=== PATIENT | male | born 1955 | race Caucasian/White ===

== ENCOUNTER 2023-02-23 18:16 | Emergency (ER) | payer MEDICARE, SELFPAY ==
--- NOTE | ~2023-02-23 | XR_ITS ---
EXAM: XR femur LT min 2V, XR tibia fibula LT 2V DATE: 02/23/2023 19:18 HISTORY: PAIN AFTER DOGS TRIPPED PATIENT . COMPARISON: None available. FINDINGS: Decreased mineralization. Mild degenerative change in the left hip. Nondisplaced fracture through the intertrochanteric region. No other fracture. No dislocation. Soft tissue anchor in the le ft knee. Mild tricompartmental left knee arthritis. Left knee chondrocalcinosis. Moderate degenerativ e change at the tibiotalar joint. IMPRESSION: Nondisplaced left intertrochanteric fracture. Reviewed, dictated and finalized at location K. IMPRESSION: Nondisplaced left intertrochanteric fracture.
[2023-02-23 18:35] VITALS: BP 187/103; PULSE 115; RESP 18; TEMP 37.2; O2SAT 97
--- NOTE | 2023-02-23 18:48 | ED.LOWEXIN ---
HPI - Extremity Injury (Lower) General Chief Complaint: Extremity Injury, Lower Stated Complaint: left leg injury Time Seen by Provider: 02/23/23 18:40 Source: patient and RN notes reviewed Mode of arrival: ambulatory Limitations: no limitations History of Present Illness HPI Narrative: Patient presents today complaining of left leg pain. States he fell sideways onto concrete 2 weeks ago injuring his hip and lower leg. States he had been improving but twisted a few days ago, causing increased pain at that time. He is having pain primarily in the hip and anterior lower leg area. Denies numbness or tingling in the leg or foot. Currently rates his pain 4/10 and has been taking ibuprofen with some relief. He has been ambulating with a walker since the injury due to pain. Related Data Home Medications Medication Instructions Recorded Confirmed albuterol 02/23/23 Allergies Allergy/AdvReac Type Severity Reaction Status Date / Time No Known Allergies Allergy Verified 02/23/23 18:36 Review of Systems Review of Systems: CONSTITUTIONAL: Denies body aches, fever, chills, or sweats. EYES: Denies visual changes, redness, or discharge. ENT: Denies rhinorrhea, congestion, sore throat, or otalgia. CARDIOVASCULAR: Denies chest pain, palpitations, or edema. RESPIRATORY: Denies cough or dyspnea. GASTROINTESTINAL: Denies abdominal pain, nausea, vomiting, or diarrhea. GENITOURINARY: Denies dysuria or hematuria. SKIN: Denies rash, itching, or wounds. MUSCULOSKELETAL: Denies back pain, or myalgia.+ left hip and tib-fib pain NEUROLOGIC: Denies headache, numbness, tingling, or weakness. PSYCH: Denies depression or anxiety. [facility] Past Medical History Medical History (Updated 02/23/23 @ 19:44 by Sasha Cohn, [facility], ) COPD (chronic obstructive pulmonary disease) Hypertension Comments At time of signature, I have reviewed and agree with nursing past medical, surgical, social and family history unless otherwise noted. Please see nursing chart for further information. There is no relevant family history pertinent to the presenting complaint Exam Narrative: GENERAL: Well-appearing, well-nourished, and in no acute distress. HEAD: Normocephalic, atraumatic. EYES: EOMI. No redness or drainage. Conjunctivae normal. ENT: Mucous membranes pink and moist. NECK: Normal AROM. . CHEST: No respiratory distress. MUSCULOSKELETAL: No bony tenderness of the lumbar spine. No tenderness to the left SI joint. Tenderness to the left lateral hip as well as the proximal anterior tib-fib. No ecchymosis to the entire leg. No edema. No erythema. Distal sensation intact. Capillary refill normal. Range of motion of the hip is painful. SKIN: Warm, dry, no rash. Capillary refill normal. Normal skin turgor. NEURO: No focal deficits. Alert and oriented x3. Gait steady with walker. PSYCH: Normal affect. No signs of depression or anxiety. Course Course Level of Care: Express Care Visit Vital Signs Vital signs: Vital Signs Temperature 99 F 02/23/23 18:35 Pulse Rate 115 H 02/23/23 18:35 Respiratory Rate 18 02/23/23 18:35 Blood Pressure 187/103 H 02/23/23 18:35 Pulse Oximetry 97 02/23/23 18:35 Oxygen Delivery Room Air 02/23/23 18:35 Temperature 99 F 02/23/23 18:35 Pulse Rate 115 H 02/23/23 18:35 Respiratory Rate 18 02/23/23 18:35 Blood Pressure 187/103 H 02/23/23 18:35 Pulse Oximetry 97 02/23/23 18:35 Oxygen Delivery Room Air 02/23/23 18:35 Reviewed. Transfer Transfered to: [place] Transportation: Other (Private vehicle) Transfer rationale: Hip fracture Accepting physician: Armani MDM - Extremity Injury (Lower) Differential Diagnosis Differential diagnosis: Likely other (Contusion, fracture) Imaging Data Radiologist's impression: ITS Impressions Femur X-Ray 02/23/23 19:26 IMPRESSION: Nondisplaced left intertrochanteric fracture. Tibia/Fibula X-Ray 0
[2023-02-23 19:38] VITALS: BP 163/103; PULSE 88
--- NOTE | 2023-02-23 19:46 | PC.NURSE ---
PT denies h/a, CP, SOB or vision changes. ADvised to watch BP and f/u with PCP
== END 2023-02-23 19:42 | disposition short-term general hospital (02) ==
PROVIDERS: Emergency Provider Nurse Practitioner
DX: S72.145A Nondisplaced intertrochanteric fracture of left femur, initial encounter for closed fracture (principal); W19.XXXA Unspecified fall, initial encounter; J44.9 Chronic obstructive pulmonary disease, unspecified; I10 Essential (primary) hypertension
CPT/HCPCS: 73552; 73590; 99214; G0463

== ENCOUNTER 2023-02-23 20:10 | Observation (INO) | payer MEDICARE, SELFPAY ==
--- NOTE | ~2023-02-23 | US_ITS ---
EXAMINATION: US venous doppler [facility] DATE: 02/24/2023 12:21 INDICATION: Left lower limb swelling TECHNIQUE: Grayscale ultrasound images without and with compression and Doppler ultrasound images of the left lower extremity veins were obtained. COMPARISON: None. FINDINGS: The visualized portions of left common femoral vein, profunda (deep) femoral vein, femoral vein, popl iteal vein, peroneal veins, posterior tibial veins, gastrocnemius vein and greater saphenous vein out flow are patent. IMPRESSION: 1. No deep venous thrombosis in the left lower limb. Reviewed, dictated and finalized at location A.
--- NOTE | ~2023-02-23 | XR_ITS ---
EXAMINATION: XR femur LT min 2V INDICATION: Nondisplaced left intertrochanteric fracture. TECHNIQUE: Two views of the left femur are obtained on four radiographs. COMPARISON: None available FINDINGS: There is an intertrochanteric fracture of the left femoral neck. The femoral head is well-s eated in the acetabulum. No additional fracture is identified. Surgical changes are noted in the knee . There is calcified atherosclerosis. There is mild osteoarthritis of the knee. IMPRESSION: 1. Intertrochanteric fracture of the left femoral neck. Reviewed, dictated and finalized at location A.
--- NOTE | ~2023-02-23 | XR_ITS ---
EXAMINATION: XR hip LT 2V w AP pelvis INDICATION: Nondisplaced left intertrochanteric fracture TECHNIQUE: AP view of the pelvis and two views of the left hip are obtained. COMPARISON: None available FINDINGS: There is an intertrochanteric fracture of the left femoral neck. The femoral head is well-s eated in the acetabulum. No additional fracture is identified. Calcified atherosclerosis is noted. IMPRESSION: 1. Intertrochanteric left femoral neck fracture. Reviewed, dictated and finalized at location A.
--- NOTE | ~2023-02-23 | XR_ITS ---
EXAMINATION: XR chest 1V portable Exam Date/Time: 02/23/2023 22:00 CDT HISTORY: wheezes Comparison: None. RESULT: Lines, tubes, and devices: None. Lungs and pleura: Senescent/emphysematous change. 2.1 cm spiculated opacity in the right upper lung, with adjacent scar and hilar retraction. Cardiomediastinal silhouette: Mild aortic unfolding and arch calcification. Dilated central pulmonar y arteries as can be seen with pulmonary arterial hypertension. Other: No acute osseous or upper abdominal finding. IMPRESSION: Suspicious right upper lobe nodule. Consider low-dose noncontrast CT of the chest for further charact erization. Reviewed, dictated and finalized at location K. IMPRESSION: Suspicious right upper lobe nodule. Consider low-dose noncontrast CT of the dino st for further characterization.
--- NOTE | ~2023-02-23 | CT_ITS ---
EXAMINATION: CT diagnostic chest wo con DATE: 02/24/2023 10:17 INDICATION: Lung nodule TECHNIQUE: Computed tomography (CT) of the chest was performed without intravenous contrast. The dose -length product (DLP) was 197.75 mGy-cm. Automated exposure control and iterative reconstruction tech nique were employed. COMPARISON: None FINDINGS: There is a 13 mm x 10 mm nodule of the right upper lobe with peripheral airspace opacities extending to the pleural surface. There is mild emphysema. There are patchy airspace opacities of the left lower lobe. There is a 4 mm nodule of the left lower lobe. No pleural effusion or pneumothorax. No pathologically enlarged thoracic lymph nodes are identified. The heart size is normal. Calcified coronary artery atherosclerosis is noted. There is an age-indeterminate burst fracture T4 with a frac ture plane extending to the right pedicle. There is a compression fracture of T6. The T12 and L1 vert ebral bodies are fused. There is central loss of vertebral body height at L1. IMPRESSION: 1. Right upper lobe nodule which could reflect pneumonia or malignancy. Additional areas of airspace opacity suggest malignancy however, recommend three-month follow-up CT, PET/CT, or tissue sampling. 2. Age-indeterminate T4 burst fracture with fracture plane extending into the right pedicle. 3. Age indeterminate T6 compression fracture. Reviewed, dictated and finalized at location B. IMPRESSION: 1. Right upper lobe nodule which could reflect pneumonia or malignancy. Additio nal areas of airspace opacity suggest malignancy however, recommend three-month follow-up CT, PET/CT, or tissue sampling. 2. Age-indeterminate T4 burst fracture with fracture plane extending into the r ight pedicle. 3. Age indeterminate T6 compression fracture.
[2023-02-23 20:20] VITALS: BP 169/103; PULSE 88; RESP 16; TEMP 36.3; O2SAT 99
[2023-02-23] MEDS: HYDROmorphone HCL INJ (*CRX) 1 MG/ML SYR 0.5 MG IV PUSH (21:01)
[2023-02-23] MEDS: ONDANSETRON INJ 4 MG/2 ML VIAL IV PUSH (21:03)
--- NOTE | 2023-02-23 21:04 | ED.GENADULT ---
HPI - General Adult General Chief complaint: Extremity Injury, Lower <Preston Bhatt PA-C - Last Filed: 02/23/23 22:57> Stated complaint: left hip fracture <Preston Bhatt PA-C - Last Filed: 02/23/23 22:57> Time Seen by Provider: 02/23/23 20:31 <Preston Bhatt PA-C - Last Filed: 02/23/23 22:57> Source: patient <Preston Bhatt PA-C - Last Filed: 02/23/23 22:57> Mode of arrival: ambulatory <Preston Bhatt PA-C - Last Filed: 02/23/23 22:57> Limitations: no limitations <Preston Bhatt PA-C - Last Filed: 02/23/23 22:57> History of Present Illness HPI narrative: This is a 67-year-old male who presents to the ED with chief complaint of left hip pain onset 2 weeks ago. Patient is here after being referred from the urgent care for a left hip fracture diagnosed on the x-rays today. Patient states that 1-2 weeks ago he was carrying dogs out to a kennel in the backyard when he tripped and fell onto the left side. Reports that he has pain in the left hip but nowhere else. States that he has been able to ambulate in his home with the walker and nonweightbearing over the past several days. Today he tried to bear some weight and had significant pain. Denies any further site of pain or injury. <Preston Bhatt PA-C - Last Filed: 02/23/23 22:57> Related Data Home medications: Home Medications Medication Instructions Recorded Confirmed albuterol 02/23/23 <Preston Bhatt PA-C - Last Filed: 02/23/23 22:57> Allergies/adverse reactions: Allergies Allergy/AdvReac Type Severity Reaction Status Date / Time No Known Allergies Allergy Verified 02/23/23 18:36 <Preston Bhatt PA-C - Last Filed: 02/23/23 22:57> [facility] Past Medical History Medical History: Medical History (Updated 02/23/23 @ 22:10 by Preston Bhatt PA-C) COPD (chronic obstructive pulmonary disease) Hypertension <Preston Bhatt PA-C - Last Filed: 02/23/23 22:57> Exam Narrative: GENERAL: Well-appearing, well-nourished, and in no acute distress. HEAD: Normocephalic, atraumatic. EYES: PERRLA and EOMI. ENT: Nares clear, no rhinorrhea or epistaxis. Mucous membranes moist. Oropharynx without tonsillar hypertrophy exudate or other lesions. NECK: Supple. No adenopathy or masses. CHEST: No respiratory distress. Sats 99% on room air. Diffuse wheezes throughout the lungs. No rales or rhonchi. HEART: Regular rate and rhythm. No murmur heard. Normal peripheral pulses. ABDOMEN: Soft, nontender, nondistended, normal active bowel sounds. MSK: RLE: Normal range of motion. No edema. LLE: Guarding left hip. Significant pain with any range of motion of the hip. No tenderness throughout the knee. Musculoskeletal exam is otherwise intact. Neurovascularly intact distally. Bilateral feet with diffuse plaques. SKIN: Warm, dry, no rash. NEURO: Alert and oriented x3. No focal deficits. PSYCH: Normal mood and affect. <Preston Bhatt PA-C - Last Filed: 02/23/23 22:57> Course Course Emergency Course: Consult Dr. Sanz (orthopedics): Recommends admitting the patient to the hospital, he will see him in the morning. <Preston Bhatt PA-C - Last Filed: 02/23/23 22:57> [employer]NAGER/PA Physician Supervision For this patient encounter, I reviewed the [employer] MANAGER or PA documentation, treatment plan, and I was responsible for the medical decision making; and I had [id number] time with this patient. <Brian Lomeli MD - Last Filed: 02/23/23 23:10> Vital Signs Vital signs: Vital Signs Temperature 97.4 F L 02/23/23 20:20 Pulse Rate 88 02/23/23 20:20 Respiratory Rate 16 02/23/23 20:20 Blood Pressure 169/103 H 02/23/23 20:20 Pulse Oximetry 99 02/23/23 20:20 Oxygen Delivery Room Air 02/23/23 20:20 Temperature 97.4 F L 02/23/23 20:20 Pulse Rate 80 02/23/23 22:20 Respiratory Rate 18 02/23/23 22:20 Blood Pressure 151/91 H 02/23/23 22:20 Pulse Oximetry 98 02/23/23 22:20 Oxygen Delivery Room Air
[2023-02-23 21:05] LABS: Basophils Absolute Auto 0.1 K/mm3 (0.0-0.1); Basophils Percent Auto 0.9 % (0.2-1.2); Eosinophils Absolute Auto 0.6 K/mm3 (0-0.3); Eosinophils Percent Auto 6.6 % (0-4.4); Hematocrit 37.4 % (42.0-52.0); Hemoglobin 12.4 g/dL (14.0-18.0); Immature Granulocyte Absolute 0.03 K/mm3 (0.00-0.031); Immature Granulocyte Percent A 0.3 % (0-0.5); Lymphocytes Absolute Auto 1.49 K/mm3 (0.9-3.2); Lymphocytes Percent Auto 16.3 % (18.3-44.2); Mean Corpuscular HGB Conc 33.2 g/dl (32-36); Mean Corpuscular Hemoglobin 30.7 pg (26-34); Mean Corpuscular Volume 92.6 fl (80-100); Mean Platelet Volume 9.8 fl (7.4-10.4); Monocytes Absolute Auto 0.7 K/mm3 (0.1-0.6); Monocytes Percent Auto 7.2 % (2.6-8.5); Neutrophils Absolute Auto 6.3 K/mm3 (1.3-6.7); Neutrophils Percent Auto 68.7 % (45.5-73.1); Platelet Count Result 308 k/mm3 (150-375); Red Blood Count 4.04 M/mm3 (4.6-6.20); Red Cell Distribution Width 12.9 % (11.5-14.5); White Blood Count 9.1 K/mm3 (4.5-10.0)
[2023-02-23 21:15] LABS: Alanine Aminotransferase 14 U/L (6-50); Albumin Level 4.2 g/dL (3.5-5.1); Alkaline Phosphatase 81 U/L (38-126); Anion Gap 7 mmol/L (8-16); Aspartate Amino Transferase 24 U/L (17-59); Bilirubin,Total 0.4 mg/dL (0.2-1.3); Blood Urea Nitrogen 16 mg/dL (9-20); Calcium 9.8 mg/dL (8.4-10.2); Carbon Dioxide 29 mmol/L (22-30); Chloride 104 mmol/L (98-107); Estimated CRCL calculation 80 ml/min; Estimated Glomerular Filt Rate > 60; Glucose 95 mg/dL (65-110); Potassium 3.2 mmol/L (3.4-5.0); Sodium 140 mmol/L (137-145)
[2023-02-23 21:16] LABS: Prothrombin Time 13.2 Seconds (11.1-14.7)
[2023-02-23 21:17] LABS: Partial Thromboplastin Time 32.8 SECONDS (22.3-36.8)
[2023-02-23] MEDS: ALBUTEROL SULFATE NEB 2.5 MG/3 ML INH INHALATION (21:21)
[2023-02-23] MEDS: IPRATROPIUM BR 0.02% INH SOLN 0.5 MG/2.5 ML VIAL INHALATION (21:22)
[2023-02-23 21:29] VITALS: PULSE 79; RESP 18
[2023-02-23 21:35] VITALS: BP 166/105; PULSE 75; RESP 18; O2SAT 100
[2023-02-23 21:41] VITALS: PULSE 84; RESP 18
--- NOTE | 2023-02-23 22:04 | PM.IMHP ---
H&P: HPI History of Present Illness Date/Time: 02/23/23 22:04 Chief Complaint: Fall Narrative: This is a 67-year-old male with past medical history significant for COPD/emphysema, tobacco dependence, patient smokes half a pack a day. Patient presents to the emergency room after having a fall about a week ago somehow has managed to walk with the aid of a walker however on the day patient presents to the emergency room he was having pain upon weight-bearing and unable to ambulate. Preliminary workup was significant for hip x-ray was reported as: EXAM:? XR femur LT min 2V, XR tibia fibula LT 2V DATE: 02/23/2023 19:18 HISTORY: PAIN AFTER DOGS TRIPPED PATIENT . COMPARISON:? None available. FINDINGS:? Decreased mineralization. Mild degenerative change in the left hip. Nondisplaced fracture through the intertrochanteric region. No other fracture. No dislocation. Soft tissue anchor in the left knee. Mild tricompartmental left knee arthritis. Left knee chondrocalcinosis. Moderate degenerative change at the tibiotalar joint. IMPRESSION: Nondisplaced left intertrochanteric fracture. EXAM:? XR femur LT min 2V, XR tibia fibula LT 2V DATE: 02/23/2023 19:18 HISTORY: PAIN AFTER DOGS TRIPPED PATIENT . COMPARISON:? None available. FINDINGS:? Decreased mineralization. Mild degenerative change in the left hip. Nondisplaced fracture through the intertrochanteric region. No other fracture. No dislocation. Soft tissue anchor in the left knee. Mild tricompartmental left knee arthritis. Left knee chondrocalcinosis. Moderate degenerative change at the tibiotalar joint. IMPRESSION: Nondisplaced left intertrochanteric fracture. EXAMINATION:? XR chest 1V portable Exam Date/Time:? 02/23/2023 22:00 CDT HISTORY: wheezes ? Comparison:? None. RESULT: Lines, tubes, and devices:? None. Lungs and pleura:? Senescent/emphysematous change. 2.1 cm spiculated opacity in the right upper lung, with adjacent scar and hilar retraction. Cardiomediastinal silhouette:? Mild aortic unfolding and arch calcification. Dilated central pulmonary arteries as can be seen with pulmonary arterial hypertension. Other:? No acute osseous or upper abdominal finding. ? IMPRESSION: Suspicious right upper lobe nodule. Consider low-dose noncontrast CT of the chest for further characterization. Review of Systems Review of Systems: fall, unable to bear weight. Constitutional: Constitutional: Denies chills, Denies fatigue, Denies fever(s), Denies frequent falls, Denies malaise, Denies night sweats, Denies poor appetite, Denies weakness and Denies weight loss Eyes: Eyes: Denies change in vision ENT: Denies dysphagia, Denies vertigo, Denies dizziness and Denies odynophagia Cardiovascular: Cardiovascular: Denies chest pain, Denies syncope, Denies leg edema, Denies radiating jaw, neck or arm pain and Denies palpitations Respiratory: Respiratory: Reports cough, Reports dyspnea and Reports wheezing Gastrointestinal: Gastrointestinal: Denies abdominal pain, Denies dyspepsia, Denies heartburn, Denies diarrhea, Denies nausea and Denies vomiting Genitourinary: Genitourinary: Denies dysuria Musculoskeletal: Musculoskeletal: Reports arthralgias (Left hip) and Reports limited range of motion Integumentary/Breasts: Skin/Breast: Denies rash Neurologic: Denies focal weakness and Denies Sensory deficit (Neuro) Psychiatric: Psychiatric: Reports no additional psychiatric complaints and Reports as per HPI Endocrine: Endocrine: Denies cold intolerance, Denies flushing, Denies heat intolerance, Denies polyphagia, Denies polydipsia and Denies palpitations Hematologic/Lymphatic: Hematologic/Lymphatic: Reports no additional hematologic/lymphatic complaints and Reports as per HPI Allergic/Immunologic: Allergic/Immunologic: Reports no additional allergic/immunologic complaints and Reports as per HPI [facility] Past Medical History Medical History (Updated 02/23/23 @ 22:10 by Preston
--- NOTE | 2023-02-23 22:05 | ECG_ITS ---
Measurements Intervals [place] Rate: 75 P: 66 NV: 169 QRS: 43 QRSD: 87 T: 60 QT: 393 QTc: 441 Interpretive Statements SINUS RHYTHM WITH OCCASIONAL VENTRICULAR PREMATURE COMPLEXES ABNORMAL ECG NO PREVIOUS ECG AVAILABLE FOR COMPARISON Electronically Signed On 02-24-2023 17:04:49 CDT by Alexander Holguin M.D.
[2023-02-23 22:20] VITALS: BP 151/91; PULSE 80; RESP 18; O2SAT 98
[2023-02-23 22:32] LABS: Appearance Urine Clear (Clear); Bacteria Urine None Seen /hpf; Bilirubin Urine Negative (Negative); Blood Urine Negative (Negative); Color Urine Yellow (Yellow); Glucose Urine UA Negative (Negative); Ketones Urine Negative (Negative); Leukocyte Esterase Ur Negative LEU/UL (Negative); Nitrate Urine Negative (Negative); Non Pathogenic Casts 0-2; Protein Urine 1+ mg/dL (Negative); RBC Urine 0-2 /hpf (0-2); Specific Grav Ur 1.024 (1.001-1.035); Squamous Epithelial Cell Urine None seen /hpf (Few); Urobilinogen Urine 0.2 mg/dL (<2.0); WBC Urine 0-5 /hpf
[2023-02-23 22:49] LABS: Add Urine Microscopic? YES
[2023-02-23 23:18] VITALS: BP 150/88; PULSE 82; RESP 20; TEMP 36.7; O2SAT 96; BMI 21.4
--- NOTE | 2023-02-23 23:53 | PC.NURSE ---
This patient, Kyle Phillip, was admitted to Medical Room 340-01. Patient/family oriented to hospital policies and general routines including ID bracelet, bed and alarms, visiting hours, pain management, procedures, bathroom and other care routines, personal items, smoking policy, room service/diet, and visiting hours. Information on how to activate the Rapid Response Team has been discussed. Patient/Family are encouraged to report perceived risks to care and to ask questions if they do not understand what they are told or what they should do.
[2023-02-24] VITALS (13 sets, daily range): BP systolic 131–142; BP diastolic 82–89; PULSE 75–106; RESP 16–20; TEMP 36.1–37; O2SAT 93–97
[2023-02-24] MEDS: HYDROmorphone HCL INJ (*CRX) 1 MG/ML SYR 0.5 MG IV PUSH ×3 (00:21→16:38)
[2023-02-24] MEDS: ALBUTEROL SULFATE NEB 2.5 MG/3 ML INH INHALATION ×4 (01:50→20:00)
[2023-02-24] MEDS: IPRATROPIUM BR 0.02% INH SOLN 0.5 MG/2.5 ML VIAL INHALATION ×4 (01:50→20:00)
--- NOTE | 2023-02-24 08:43 | PM.CNOR ---
Assessment and Plan Assessment and plan (1) Intertrochanteric fracture of left femur: Qualifiers: Encounter type: initial encounter Fracture type: closed Fracture alignment: nondisplaced Qualified Code(s): S72.145A - Nondisplaced intertrochanteric fracture of left femur, initial encounter for closed fracture Code(s): S72.142A - Displaced intertrochanteric fracture of left femur, initial encounter for closed fracture Status: Acute Plan 67-year-old male with an impacted left intertrochanteric hip fracture. I discussed this with him. It is already 2-week-old and has impacted into a stable position. I think when he walked away from his walker yesterday he probably impacted a little bit more. We will get him mobilized with therapy and see how he does. I will re-x-ray this on Monday and then make a decision about possible surgical stabilization on Monday. He understands the plan at this point. Thank you for the consultation. History of Present Illness HPI Consult date: 02/24/23 Chief complaint: left hip fracture, COPD, HTN Narrative: This document created with [id number] technology and is subject to microelectronics assembler irregularities. 67-year-old male who has got an impacted left intertrochanteric hip fracture. I spoke with him this morning and he says it has been at least 14 days since he fell on his left side while handling dogs. He had been getting around at home using a walker. Yesterday he decided to try and walk way from the walker and increase in the pain in his left hip area. He was brought to the urgent care and then eventually the ER. X-ray evaluation shows an impacted left intertrochanteric hip fracture. No other injuries with this occurrence. History of some type of a left knee surgery which may have been an ACL repair. He is unclear on this. Review of Systems Constitutional: Constitutional: Reports no additional constitutional complaints, Denies excessive sweating and Denies fatigue Eyes: Eyes: Reports no additional eye complaints ENT: Reports system reviewed and no additional complaints, except as documented Cardiovascular: Cardiovascular: Denies chest pain at rest and Denies dyspnea Respiratory: Respiratory: Reports no additional respiratory complaints and Denies dyspnea Gastrointestinal: Gastrointestinal: Reports no additional gastrointestinal complaints Musculoskeletal: Musculoskeletal: Reports as per HPI Integumentary/Breasts: Skin/Breast: Reports system reviewed and no additional complaints, except as docu Neurologic: Reports as per HPI Endocrine: Endocrine: Denies excessive sweating and Denies fatigue Hematologic/Lymphatic: Hematologic/Lymphatic: Denies easy bleeding and Denies easy bruising PMFSH Past Medical History Medical History (Updated 02/24/23 @ 08:54 by Howie Sanz MD) COPD (chronic obstructive pulmonary disease) Hypertension Intertrochanteric fracture of left femur impacted fracture mid January 2023 Social History Social History Smoking packs per day: 0.5 Smoking cigarettes per day: 10.0 Years smoked: 50 Smoking pack-years: 25.00 Smoking status: Current every day smoker Tobacco type: cigarettes Alcohol intake: never Substance use: former Lack of Transportation: No Lack of Food: Never True Current Housing: I Have Housing Concerned About Future Housing: Decline to Answer Difficulty Paying Gas/Electric Bills: Decline to Answer Difficulty Paying for Meds: Decline to Answer Currently Unemployed: Decline to Answer Education: High School Diploma/GED Difficulty w/ Childcare or Family Care: No Spiritual care concerns: No Meds Home Medications and Allergies Home Medications Medication Instructions Recorded Confirmed Type No Home Medications 02/23/23 02/23/23 History Allergies Allergy/AdvReac Type Severity Reaction Status Date / Time No Known A
[2023-02-24] MEDS: POTASSIUM CHLORIDE 20 MEQ ER TABLET 40 MEQ PO (09:44)
[2023-02-24] MEDS: MICONAZOLE NITRATE 2% CREAM 30 GM TUBE 1 APPLIC TOPICAL ×2 (09:45→20:12)
[2023-02-24] MEDS: ACETAMINOPHEN 500 MG TABLET 1000 MG PO ×2 (11:39→21:46)
[2023-02-24] MEDS: NICOTINE (*PBKC) 14 MG PATCH 1 PATCH TRANSDERM (14:55)
--- NOTE | 2023-02-24 17:52 | WPDNEUROSGCN ---
Assessment and Plan Assessment and plan (1) Compression fracture: Status: Acute Assessment and Plan: PAtient iwth radiographic finding of thoracic compression fractures age indeterminate . BAsed upon discussion with the patient, the fractures are most likely > 10 years old. No indication for surgical or other management. No need for further evaluation during this hospitalization. Consult date: 02/24/23 HPI: Kyle Phillip is a 67 year old male who presents to the hospital with a left hip fracture. He sustained a fall which likely contribued to the fracture. As a part of his evaluation he underwent chest CT which shows multiple age indeterminate compression / burst fractures. On discussion with the patient he denies acute neck or back pain and he states that some ten years ago he fell from a ladder and sustained the fractures. He declined surgical treatment at the time. There is no acute exacerbation of pain save the left hip. There is no suggestion of a new acute compression fracture PMFSH Past Medical History Medical History (Updated 02/24/23 @ 17:55 by Sonia Jiménez MD) COPD (chronic obstructive pulmonary disease) Hypertension Intertrochanteric fracture of left femur impacted fracture mid January 2023 Social History Social History Smoking packs per day: 0.5 Smoking cigarettes per day: 10.0 Years smoked: 50 Smoking pack-years: 25.00 Smoking status: Current every day smoker Tobacco type: cigarettes Alcohol intake: never Substance use: former Lack of Transportation: No Lack of Food: Never True Current Housing: I Have Housing Concerned About Future Housing: Decline to Answer Difficulty Paying Gas/Electric Bills: Decline to Answer Difficulty Paying for Meds: Decline to Answer Currently Unemployed: Decline to Answer Education: High School Diploma/GED Difficulty w/ Childcare or Family Care: No Spiritual care concerns: No Meds Home Medications and Allergies Home Medications Medication Instructions Recorded Confirmed Type No Home Medications 02/23/23 02/23/23 History Allergies Allergy/AdvReac Type Severity Reaction Status Date / Time No Known Allergies Allergy Verified 02/23/23 18:36 Vital Signs Vital Signs - 24 hr 02/23/23 20:20 02/23/23 21:29 02/23/23 21:35 Temperature 97.4 F L Pulse Rate 88 79 75 Respiratory Rate 16 18 18 Blood Pressure 169/103 H 166/105 H Pulse Oximetry 99 100 Oxygen Delivery Room Air Fraction of Inspired Oxygen 02/23/23 21:41 02/23/23 22:20 02/23/23 23:18 Temperature 98.0 F Pulse Rate 84 80 82 Respiratory Rate 18 18 20 Blood Pressure 151/91 H 150/88 H Pulse Oximetry 98 96 Oxygen Delivery Fraction of Inspired Oxygen 02/23/23 23:49 02/24/23 01:50 02/24/23 02:00 Temperature Pulse Rate 77 80 Respiratory Rate 18 18 Blood Pressure Pulse Oximetry Oxygen Delivery Room Air Fraction of Inspired Oxygen 02/24/23 01:50 02/24/23 06:00 02/24/23 08:07 Temperature 97.0 F L Pulse Rate 77 79 75 Respiratory Rate 18 18 Blood Pressure 131/83 Pulse Oximetry 93 96 97 Oxygen Delivery Room Air Room Air Fraction of Inspired Oxygen 21 02/24/23 08:07 02/24/23 08:23 02/24/23 13:50 Temperature Pulse Rate 75 80 80 Respiratory Rate 18 18 18 Blood Pressure Pulse Oximetry Oxygen Delivery Fraction of Inspired Oxygen 02/24/23 14:04 02/24/23 14:00 Temperature 98.6 F Pulse Rate 81 81 Respiratory Rate 18 16 Blood Pressure 134/89 Pulse Oximetry 96 Oxygen Delivery Fraction of Inspired Oxygen Exam Narrative: Awake, alert oriented x 3 Speech CF PERLAEOMI FAce= TML MAEW with good strength save limitation of proximal LLE due to hip fx STation and gait thus deferred Results Labs 02/23/23 20:59 02/23/23 20:59 Labs: Short CBC 02/23/23 Range/Units 20:5
--- NOTE | 2023-02-24 18:02 | PM.IMPN ---
Progress Note: A&P Assessment and Plan (1) Closed fracture of trochanter of left femur: Code(s): S72.102A - Unspecified trochanteric fracture of left femur, initial encounter for closed fracture Status: Deleted Assessment and Plan: Admit to regular medical floor Pain management Bed rest Supportive care Ortho consult -Ortho wants to have patient mobile for the weekend with assistance of PT/OT and a walker. Then will obtain new XR imaging of left hip to determine if surgical intervention is required. I initially put in for PT/OT but there was an incidental finding of T4 norma and T6 compression fractures to his spine that are age indeterminate. I want neurosurgery to see him and make sure that he can ambulate safely. (2) Fall: Code(s): W19.XXXA - Unspecified fall, initial encounter Status: Acute Assessment and Plan: Fall precautions (3) COPD (chronic obstructive pulmonary disease): Code(s): J44.9 - Chronic obstructive pulmonary disease, unspecified Status: Acute Assessment and Plan: Breathing treatments q.6 p.r.n. (4) Athletes foot: Code(s): B35.3 - Tinea pedis Status: Acute Assessment and Plan: A started antifungal (5) Gait disturbance: Code(s): R26.9 - Unspecified abnormalities of gait and mobility Status: Acute Assessment and Plan: Patient uses a walker at is an aid Unable to bear weight Subjective Date/time seen: 02/24/23 18:02 Interval history: This is a 67-year-old male with past medical history significant for COPD/emphysema, tobacco dependence, patient smokes half a pack a day.? Patient presents to the emergency room after having a fall about a week ago somehow has managed to walk with the aid of a walker however on the day patient presents to the emergency room he was having pain upon weight-bearing and unable to ambulate.? 02/24: Patient is seen in bed reading and appears to be feeling well. He denies any complaints overnight. He explains that he came to the hospital for worsening left hip and leg pain after falling 4 weeks ago. He then fell another time when he walked away from his walker, he estimates that was a couple of weeks ago. Currently he is on bedrest and does not complain of pain when he is laying still. He does have some tenderness to palpation and swelling in the left leg. Ortho has been consulted and we appreciate recommendations. I spoke with the patient about an incidental lung nodule found on his chest x-ray. He says that he knows about it and was scheduled to follow up with a rn mds coordinator down in [place]. He just moved here a month ago to be closer to his daughter. Will obtain CT today to further investigate the lesions and can arrange for pulmonology follow up at discharge. He feels like his COPD is well controlled and denies SOB, chest pain, cough, or increased sputum. He does want a nicotine patch because he is a 1/2 ppd smoker. Review of Systems Review of Systems: All systems reviewed & are unremarkable except as noted in HPI and below Exam Narrative: General: well appearing, thin, appears stated age. Neuro: Alert and orientated x 4. PERRLA. Cranial nerves 2-12 intact without focal deficit. HEENT: normocephalic, atraumatic. Mucous membranes moist. Neck supple without JVD or lymphadenopathy. Missing teeth. Respiratory: clear to auscultation bilaterally. No rales/rhonic/wheezes. Cardiovascular: Regular rate and rhythm, normal S1-S2 upon auscultation. No murmurs, rubs, or clicks. PMI is nondisplaced. Abdomen: Soft, flat, non-distended and non-tender. Bowel sounds present to all four quadrants. Extremities: No cyanosis, clubbing. Slight non-pittig edema to left calf and thigh. Pulses are palpable 2/1. Active ROM to all four extremities. 4/5 strength in LLE. Skin: Warm, dry, and intact, without rash, erythema, or lesion. Fungal patching to BLE. Psych: pleasant, cooperative, normal speech, normal affect.
[2023-02-25] VITALS (12 sets, daily range): BP systolic 139–162; BP diastolic 86–88; PULSE 90–108; RESP 16–22; TEMP 36.4–36.7; O2SAT 94–100
[2023-02-25] MEDS: ALBUTEROL SULFATE NEB 2.5 MG/3 ML INH INHALATION ×4 (01:53→19:51)
[2023-02-25] MEDS: IPRATROPIUM BR 0.02% INH SOLN 0.5 MG/2.5 ML VIAL INHALATION ×4 (01:53→19:51)
[2023-02-25 05:21] LABS: Basophils Absolute Auto 0.1 K/mm3 (0.0-0.1); Basophils Percent Auto 0.9 % (0.2-1.2); Eosinophils Absolute Auto 0.5 K/mm3 (0-0.3); Eosinophils Percent Auto 5.1 % (0-4.4); Hematocrit 29.4 % (42.0-52.0); Hemoglobin 9.7 g/dL (14.0-18.0); Immature Granulocyte Absolute 0.02 K/mm3 (0.00-0.031); Immature Granulocyte Percent A 0.2 % (0-0.5); Lymphocytes Absolute Auto 1.13 K/mm3 (0.9-3.2); Lymphocytes Percent Auto 12.2 % (18.3-44.2); Mean Corpuscular Hemoglobin 30.5 pg (26-34); Mean Corpuscular Volume 92.5 fl (80-100); Mean Platelet Volume 9.9 fl (7.4-10.4); Monocytes Absolute Auto 0.8 K/mm3 (0.1-0.6); Monocytes Percent Auto 8.9 % (2.6-8.5); Neutrophils Absolute Auto 6.7 K/mm3 (1.3-6.7); Neutrophils Percent Auto 72.7 % (45.5-73.1); Platelet Count Result 227 k/mm3 (150-375); Red Blood Count 3.18 M/mm3 (4.6-6.20); Red Cell Distribution Width 13.1 % (11.5-14.5); White Blood Count 9.3 K/mm3 (4.5-10.0)
[2023-02-25 05:32] LABS: Anion Gap 4 mmol/L (8-16); Blood Urea Nitrogen 12 mg/dL (9-20); Calcium 8.6 mg/dL (8.4-10.2); Carbon Dioxide 29 mmol/L (22-30); Chloride 105 mmol/L (98-107); Estimated CRCL calculation 82 ml/min; Estimated Glomerular Filt Rate > 60; Glucose 99 mg/dL (65-110); Potassium 2.9 mmol/L (3.4-5.0); Sodium 138 mmol/L (137-145)
[2023-02-25] MEDS: POTASSIUM CHLORIDE 20 MEQ ER TABLET 80 MEQ PO (07:48)
[2023-02-25] MEDS: HYDROmorphone HCL INJ (*CRX) 1 MG/ML SYR 0.5 MG IV PUSH ×2 (07:48→20:53)
[2023-02-25] MEDS: NICOTINE (*PBKC) 14 MG PATCH 1 PATCH TRANSDERM (08:01)
[2023-02-25] MEDS: MICONAZOLE NITRATE 2% CREAM 30 GM TUBE 1 APPLIC TOPICAL ×2 (08:01→20:50)
[2023-02-25] MEDS: lisinopriL 5 MG TABLET PO (09:20)
--- NOTE | 2023-02-25 11:46 | PM.IMPN ---
Progress Note: A&P Assessment and Plan (1) Closed fracture of trochanter of left femur: Code(s): S72.102A - Unspecified trochanteric fracture of left femur, initial encounter for closed fracture Status: Deleted Assessment and Plan: Admit to regular medical floor Pain management Bed rest Supportive care Ortho consult Neurosurgery cleared for mobility. PT/OT ordered with WBAT and walker. XR right hip tomorrow morning. (2) Fall: Code(s): W19.XXXA - Unspecified fall, initial encounter Status: Acute Assessment and Plan: Fall precautions (3) COPD (chronic obstructive pulmonary disease): Code(s): J44.9 - Chronic obstructive pulmonary disease, unspecified Status: Acute Assessment and Plan: Breathing treatments q.6 p.r.n. (4) Athletes foot: Code(s): B35.3 - Tinea pedis Status: Acute Assessment and Plan: A started antifungal. - Scaling is much improved. Continue cream (5) Gait disturbance: Code(s): R26.9 - Unspecified abnormalities of gait and mobility Status: Acute Assessment and Plan: Patient uses a walker at is an aid Unable to bear weight without pain Subjective Date/time seen: 02/25/23 11:46 Interval history: This is a 67-year-old male with past medical history significant for COPD/emphysema, tobacco dependence, patient smokes half a pack a day.? Patient presents to the emergency room after having a fall about a week ago somehow has managed to walk with the aid of a walker however on the day patient presents to the emergency room he was having pain upon weight-bearing and unable to ambulate.? 02/24: Patient is seen in bed reading and appears to be feeling well. He denies any complaints overnight. He explains that he came to the hospital for worsening left hip and leg pain after falling 4 weeks ago. He then fell another time when he walked away from his walker, he estimates that was a couple of weeks ago. Currently he is on bedrest and does not complain of pain when he is laying still. He does have some tenderness to palpation and swelling in the left leg. Ortho has been consulted and we appreciate recommendations. I spoke with the patient about an incidental lung nodule found on his chest x-ray. He says that he knows about it and was scheduled to follow up with a automatic print developer down in [place]. He just moved here a month ago to be closer to his daughter. Will obtain CT today to further investigate the lesions and can arrange for pulmonology follow up at discharge. He feels like his COPD is well controlled and denies SOB, chest pain, cough, or increased sputum. He does want a nicotine patch because he is a 1/2 ppd smoker. 02/25: Mr Phillip is doing well today. He says he slept okay but did have some muscle spasms last night to his left leg. I told him I will place a prn order for flexeril should the spasms reoccur. Yesterday he was seen by neurosurgery for age indeterminate T4 burst fracture and T6 compression fracture noted on his CT chest. According to patient these are old and neurosurgery has cleared him for mobility. PT/OT ordered and will work with patient today. Plan to re-xray his left hip so Dr Sanz can make a decision about surgical intervention. He Denies dizziness, headache, chest pain, shortness of breath, in cough, nausea, vomiting, diarrhea. He has not had a bowel movement yet since being in the hospital but he feels he is going to have today. He also reports that the scaling on the bottoms of his feet are much improved with application of the antifungal cream. His Dopplers to the left lower extremity were negative for DVT. Swelling looks improved today. Review of Systems Review of Systems: All systems reviewed & are unremarkable except as noted in HPI and below Exam Narrative: General: well appearing, thin, appears stated age. Neuro: Alert and orientated x 4. PERRLA. Cranial nerves 2-12 intact without focal deficit. H
[2023-02-25] MEDS: ACETAMINOPHEN 500 MG TABLET 1000 MG PO (14:31)
[2023-02-25] MEDS: CYCLOBENZAPRINE HCL 10 MG TABLET PO ×2 (14:32→23:30)
[2023-02-26] VITALS (14 sets, daily range): BP systolic 140–155; BP diastolic 85–93; PULSE 87–114; RESP 18–22; TEMP 36.5–37.7; O2SAT 95–97
[2023-02-26] MEDS: IPRATROPIUM BR 0.02% INH SOLN 0.5 MG/2.5 ML VIAL INHALATION ×4 (02:37→21:04)
[2023-02-26] MEDS: ALBUTEROL SULFATE NEB 2.5 MG/3 ML INH INHALATION ×4 (02:37→21:04)
[2023-02-26 05:39] LABS: Basophils Absolute Auto 0.1 K/mm3 (0.0-0.1); Basophils Percent Auto 0.8 % (0.2-1.2); Eosinophils Absolute Auto 0.4 K/mm3 (0-0.3); Eosinophils Percent Auto 4.7 % (0-4.4); Hematocrit 31.2 % (42.0-52.0); Hemoglobin 10.1 g/dL (14.0-18.0); Immature Granulocyte Absolute 0.03 K/mm3 (0.00-0.031); Immature Granulocyte Percent A 0.3 % (0-0.5); Lymphocytes Absolute Auto 1.11 K/mm3 (0.9-3.2); Lymphocytes Percent Auto 12.4 % (18.3-44.2); Mean Corpuscular HGB Conc 32.4 g/dl (32-36); Mean Corpuscular Hemoglobin 30.2 pg (26-34); Mean Corpuscular Volume 93.4 fl (80-100); Mean Platelet Volume 9.8 fl (7.4-10.4); Monocytes Absolute Auto 0.8 K/mm3 (0.1-0.6); Monocytes Percent Auto 9.1 % (2.6-8.5); Neutrophils Absolute Auto 6.5 K/mm3 (1.3-6.7); Neutrophils Percent Auto 72.7 % (45.5-73.1); Platelet Count Result 242 k/mm3 (150-375); Red Blood Count 3.34 M/mm3 (4.6-6.20); Red Cell Distribution Width 13.2 % (11.5-14.5)
[2023-02-26 05:48] LABS: Anion Gap 5 mmol/L (8-16); Blood Urea Nitrogen 9 mg/dL (9-20); Carbon Dioxide 29 mmol/L (22-30); Chloride 103 mmol/L (98-107); Cholesterol 162 mg/dL (0-200); Estimated CRCL calculation 82 ml/min; Estimated Glomerular Filt Rate > 60; Glucose 99 mg/dL (65-110); HDL Direct 45 mg/dL; Magnesium 1.7 mg/dL (1.6-2.3); Phosphorus 3.2 mg/dL (2.5-4.5); Potassium 3.7 mmol/L (3.4-5.0); Sodium 137 mmol/L (137-145); Triglycerides 107 mg/dL (<150)
[2023-02-26 06:01] LABS: LDL Cholesterol Direct 75 mg/dL
[2023-02-26 06:13] LABS: Iron 30 ug/dL (49-181)
[2023-02-26 06:21] LABS: Percent Iron Saturation 12 % (20-50)
--- NOTE | 2023-02-26 08:36 | PM.IMPN ---
Progress Note: A&P Assessment and Plan (1) Closed fracture of trochanter of left femur: Code(s): S72.102A - Unspecified trochanteric fracture of left femur, initial encounter for closed fracture Status: Deleted Assessment and Plan: Admit to regular medical floor Pain management Activity as tolerated with assistance and wheeled walker Supportive care Ortho consult Neurosurgery cleared for mobility. PT/OT ordered with WBAT and walker. XR right hip tomorrow morning---pending read. -checking vitamin D level. Calcium and phosphorous are normal. (2) Fall: Code(s): W19.XXXA - Unspecified fall, initial encounter Status: Acute Assessment and Plan: Fall precautions (3) COPD (chronic obstructive pulmonary disease): Code(s): J44.9 - Chronic obstructive pulmonary disease, unspecified Status: Acute Assessment and Plan: Breathing treatments q.6 p.r.n. (4) Athletes foot: Code(s): B35.3 - Tinea pedis Status: Acute Assessment and Plan: A started antifungal. - Scaling is improved but still present. Now noticing scaling to nails and scalp that is similar. I'm thinking this is plaque psorasis. Will start a steroid cream. (5) Gait disturbance: Code(s): R26.9 - Unspecified abnormalities of gait and mobility Status: Acute Assessment and Plan: Patient uses a walker at is an aid Unable to bear weight without pain (6) Essential hypertension: Code(s): I10 - Essential (primary) hypertension Status: Acute Assessment and Plan: -SBP has been consistently 140-160 mm hg. -Started Lisinopril 5 mg PO daily on 02/25. Increased to 10 mg today. Subjective Date/time seen: 02/26/23 08:36 Interval history: This is a 67-year-old male with past medical history significant for COPD/emphysema, tobacco dependence, patient smokes half a pack a day.? Patient presents to the emergency room after having a fall about a week ago somehow has managed to walk with the aid of a walker however on the day patient presents to the emergency room he was having pain upon weight-bearing and unable to ambulate.? 02/24: Patient is seen in bed reading and appears to be feeling well. He denies any complaints overnight. He explains that he came to the hospital for worsening left hip and leg pain after falling 4 weeks ago. He then fell another time when he walked away from his walker, he estimates that was a couple of weeks ago. Currently he is on bedrest and does not complain of pain when he is laying still. He does have some tenderness to palpation and swelling in the left leg. Ortho has been consulted and we appreciate recommendations. I spoke with the patient about an incidental lung nodule found on his chest x-ray. He says that he knows about it and was scheduled to follow up with a golf course manager down in [place]. He just moved here a month ago to be closer to his daughter. Will obtain CT today to further investigate the lesions and can arrange for pulmonology follow up at discharge. He feels like his COPD is well controlled and denies SOB, chest pain, cough, or increased sputum. He does want a nicotine patch because he is a 1/2 ppd smoker. 02/25: Mr Phillip is doing well today. He says he slept okay but did have some muscle spasms last night to his left leg. I told him I will place a prn order for flexeril should the spasms reoccur. Yesterday he was seen by neurosurgery for age indeterminate T4 burst fracture and T6 compression fracture noted on his CT chest. According to patient these are old and neurosurgery has cleared him for mobility. PT/OT ordered and will work with patient today. Plan to re-xray his left hip so Dr Sanz can make a decision about surgical intervention. He Denies dizziness, headache, chest pain, shortness of breath, in cough, nausea, vomiting, diarrhea. He has not had a bowel movement yet since being in the hospital but he feels he is going to have today. He a
--- NOTE | 2023-02-26 08:54 | PC.NURSE ---
Patient off of unit to xray
[2023-02-26] MEDS: NICOTINE (*PBKC) 14 MG PATCH 1 PATCH TRANSDERM (09:18)
[2023-02-26] MEDS: MICONAZOLE NITRATE 2% CREAM 30 GM TUBE 1 APPLIC TOPICAL ×2 (09:18→20:52)
--- NOTE | 2023-02-26 09:18 | PC.NURSE ---
Patient returned to unit from xray
[2023-02-26] MEDS: lisinopriL 10 MG TABLET PO (09:33)
[2023-02-26] MEDS: HYDROmorphone HCL INJ (*CRX) 1 MG/ML SYR 0.5 MG IV PUSH ×2 (09:33→20:50)
[2023-02-26 09:40] LABS: Vitamin D 25 Hydroxy < 12.8 ng/mL
[2023-02-26] MEDS: CLOBETASOL PROPIONATE 0.05% OINT 30 GM 1 APPLIC TOPICAL ×2 (16:09→20:52)
[2023-02-26] MEDS: FERROUS SULFATE 324 MG TABLET PO (16:50)
[2023-02-26] MEDS: CYCLOBENZAPRINE HCL 10 MG TABLET PO (16:52)
[2023-02-27] VITALS (13 sets, daily range): BP systolic 123–143; BP diastolic 70–88; PULSE 84–107; RESP 18–20; TEMP 36.7–37.1; O2SAT 93–100
[2023-02-27] MEDS: IPRATROPIUM BR 0.02% INH SOLN 0.5 MG/2.5 ML VIAL INHALATION ×4 (02:24→20:20)
[2023-02-27] MEDS: ALBUTEROL SULFATE NEB 2.5 MG/3 ML INH INHALATION ×4 (02:24→20:20)
[2023-02-27] MEDS: HYDROmorphone HCL INJ (*CRX) 1 MG/ML SYR 0.5 MG IV PUSH (04:09)
[2023-02-27 06:03] LABS: Basophils Absolute Auto 0.1 K/mm3 (0.0-0.1); Basophils Percent Auto 0.8 % (0.2-1.2); Eosinophils Absolute Auto 0.3 K/mm3 (0-0.3); Eosinophils Percent Auto 2.8 % (0-4.4); Hemoglobin 10.5 g/dL (14.0-18.0); Immature Granulocyte Absolute 0.03 K/mm3 (0.00-0.031); Immature Granulocyte Percent A 0.3 % (0-0.5); Lymphocytes Percent Auto 14.5 % (18.3-44.2); Mean Corpuscular HGB Conc 32.8 g/dl (32-36); Mean Corpuscular Hemoglobin 30.5 pg (26-34); Monocytes Absolute Auto 0.9 K/mm3 (0.1-0.6); Monocytes Percent Auto 9.7 % (2.6-8.5); Neutrophils Absolute Auto 6.4 K/mm3 (1.3-6.7); Neutrophils Percent Auto 71.9 % (45.5-73.1); Platelet Count Result 273 k/mm3 (150-375); Red Blood Count 3.44 M/mm3 (4.6-6.20); Red Cell Distribution Width 13.2 % (11.5-14.5); White Blood Count 8.9 K/mm3 (4.5-10.0)
[2023-02-27 06:23] LABS: Prothrombin Time 13.3 Seconds (11.1-14.7)
[2023-02-27 06:24] LABS: Partial Thromboplastin Time 42.7 SECONDS (22.3-36.8)
[2023-02-27 06:26] LABS: Alanine Aminotransferase 13 U/L (6-50); Albumin Level 4.1 g/dL (3.5-5.1); Alkaline Phosphatase 82 U/L (38-126); Anion Gap 8 mmol/L (8-16); Aspartate Amino Transferase 20 U/L (17-59); Bilirubin,Total 0.7 mg/dL (0.2-1.3); Blood Urea Nitrogen 12 mg/dL (9-20); Calcium 9.1 mg/dL (8.4-10.2); Carbon Dioxide 29 mmol/L (22-30); Chloride 99 mmol/L (98-107); Estimated CRCL calculation 72 ml/min; Estimated Glomerular Filt Rate > 60; Glucose 103 mg/dL (65-110); Potassium 3.9 mmol/L (3.4-5.0); Sodium 136 mmol/L (137-145)
--- NOTE | 2023-02-27 07:55 | PM.PNORT ---
Progress Note: A&P Assessment and Plan (1) Intertrochanteric fracture of left femur: Qualifiers: Encounter type: initial encounter Fracture type: closed Fracture alignment: nondisplaced Qualified Code(s): S72.145A - Nondisplaced intertrochanteric fracture of left femur, initial encounter for closed fracture Code(s): S72.142A - Displaced intertrochanteric fracture of left femur, initial encounter for closed fracture Status: Acute Assessment and Plan: With no change in the x-ray appearance and his comfort level good I we will continue to treat this nonsurgically. His medications will be changed today to get him cleared more towards an outpatient regimen. In addition I did explain to him that I would want him to use a walker for a minimum of another eight weeks before going to full weight-bearing. Following. Subjective Subjective Date/Time Seen: 02/27/23 07:55 Interval history: 67-year-old male with a subacute left IT hip fracture. He is coming up now on three weeks out from this. Has had no increase in his discomfort over the weekend. Noted that he is on pain medication. Repeat x-ray yesterday was compared to the previous one and it looks unchanged to my review. Exam Const: General: cooperative Extrem: Other: Manipulation of the left hip shows that the femur moves as a unit. No significant pain with manipulation of the hip today. Patient can move the leg well and the bed on his own. Grossly motor and sensory function left lower extremity is intact. Objective Data Vital Signs Vital Signs: Vital Signs - 24 hr 02/26/23 08:11 02/26/23 08:15 02/26/23 08:27 Temperature Pulse Rate 103 H 103 H 95 Respiratory Rate 22 H 22 H 22 H Blood Pressure Pulse Oximetry 95 Oxygen Delivery Room Air Fraction of Inspired Oxygen 02/26/23 09:30 02/26/23 09:33 02/26/23 13:04 Temperature Pulse Rate 106 H Respiratory Rate 20 Blood Pressure 140/87 Pulse Oximetry Oxygen Delivery Room Air Fraction of Inspired Oxygen 02/26/23 14:00 02/26/23 13:16 02/26/23 21:04 Temperature 99.5 F Pulse Rate 111 H 100 102 H Respiratory Rate 18 20 20 Blood Pressure 155/85 H Pulse Oximetry 97 Oxygen Delivery Fraction of Inspired Oxygen 02/26/23 21:14 02/26/23 20:00 02/26/23 21:26 Temperature 99.9 F H Pulse Rate 102 H 102 H 114 H Respiratory Rate 20 20 18 Blood Pressure 145/92 H Pulse Oximetry 97 95 Oxygen Delivery Room Air Fraction of Inspired Oxygen 21 02/27/23 02:26 02/27/23 02:36 02/27/23 03:18 Temperature 98.5 F Pulse Rate 97 98 103 H Respiratory Rate 20 20 18 Blood Pressure 123/82 Pulse Oximetry 93 Oxygen Delivery Fraction of Inspired Oxygen 02/27/23 07:14 02/27/23 07:19 02/27/23 07:30 Temperature Pulse Rate 95 100 Respiratory Rate 20 20 Blood Pressure Pulse Oximetry 94 Oxygen Delivery Room Air Fraction of Inspired Oxygen Intake/Output Intake/Output: Intake & Output 02/24/23 02/25/23 02/26/23 02/27/23 23:59 23:59 23:59 23:59 Intake Total 1400 / 1400 1220 / 1220 1280 / 1280 240 / 240 Output Total 900 / 900 400 / 400 1810 / 1810 400 / 400 Balance 500 / 500 820 / 820 -530 / -530 -160 / -160 Meds/Results Medications: Active Medications Generic Name Dose Route Start Last Admin Trade Name Freq PRN Reason Stop Dose Admin Acetaminophen 1,000 mg 02/23/23 22:08 02/25/23 14:31 Acetaminophen 500 Mg Tablet PO 1,000 mg Q6H PRN Administration Pain Rated 1-3 Al Hydrox/Mg Hydrox/Simethicone 30 ml 02/23/23 22:15 Mag Hydrox/Al Hydrox/Simeth 30 Ml Udc PO Q6H PRN Heartburn Albuterol 2.5 mg 02/24/23 02:00 02/27/23 07:14 Albuterol Sulfate Neb 2.5 Mg/3 Ml Inh INHALATION 2.5 mg Q6HRT [facility] Administration Clobetasol Propionate 1 applic 02/26/23 15:00 02/26/23 20:52 Clobetasol Propionate 0.05% Oint 30 Gm TOPICAL 1 applic Q12HR [facility] Administration [facility]
[2023-02-27] MEDS: NICOTINE (*PBKC) 14 MG PATCH 1 PATCH TRANSDERM (08:21)
[2023-02-27] MEDS: lisinopriL 10 MG TABLET PO (08:21)
[2023-02-27] MEDS: FERROUS SULFATE 324 MG TABLET PO ×2 (08:21→17:37)
[2023-02-27] MEDS: MICONAZOLE NITRATE 2% CREAM 30 GM TUBE 1 APPLIC TOPICAL ×2 (08:21→20:35)
[2023-02-27] MEDS: CLOBETASOL PROPIONATE 0.05% OINT 30 GM 1 APPLIC TOPICAL ×2 (08:22→20:35)
[2023-02-27] MEDS: ACETAMINOPHEN 500 MG TABLET 1000 MG PO ×3 (08:23→23:20)
[2023-02-27] MEDS: traMADol HCL (*CRX) 50 MG TABLET PO (15:11)
[2023-02-28] VITALS (13 sets, daily range): BP systolic 126–152; BP diastolic 88–96; PULSE 85–102; RESP 16–20; TEMP 36.3–36.5; O2SAT 95–100
[2023-02-28] MEDS: IPRATROPIUM BR 0.02% INH SOLN 0.5 MG/2.5 ML VIAL INHALATION ×4 (02:13→20:02)
[2023-02-28] MEDS: ALBUTEROL SULFATE NEB 2.5 MG/3 ML INH INHALATION ×4 (02:13→20:02)
[2023-02-28] MEDS: ACETAMINOPHEN 500 MG TABLET 1000 MG PO ×4 (05:53→23:37)
--- NOTE | 2023-02-28 07:49 | PM.PNORT ---
Progress Note: A&P Assessment and Plan (1) Intertrochanteric fracture of left femur: Qualifiers: Encounter type: initial encounter Fracture type: closed Fracture alignment: nondisplaced Qualified Code(s): S72.145A - Nondisplaced intertrochanteric fracture of left femur, initial encounter for closed fracture Code(s): S72.142A - Displaced intertrochanteric fracture of left femur, initial encounter for closed fracture Status: Acute Plan 67-year-old male with subacute left intertrochanteric hip fracture. This has been stable by x-ray. Awaiting placement. Will probably re-x-ray one more time before discharge. Continue to mobilize. Did discuss the injury again with him in detail. Subjective Subjective Date/Time Seen: 02/28/23 07:49 Interval history: 67-year-old male with a subacute left intertrochanteric hip fracture. Medication regimen was changed yesterday to eliminate the delighted and instead use Tylenol and tramadol. Reports increasing discomfort in the left hip area which is not unexpected. Exam Const: General: cooperative and no acute distress Extrem: Other: Left femur moves as a unit. Is able to actively flex and extend with very little difficulty. Complains mainly of distal thigh soreness with hip movement. Grossly motor and sensory function intact left lower extremity. Bilateral upper extremity and right lower extremity exam unremarkable today. Objective Data Vital Signs Vital Signs: Vital Signs - 24 hr 02/27/23 08:20 02/27/23 08:20 02/27/23 13:45 Temperature Pulse Rate 88 Respiratory Rate 20 Blood Pressure 131/83 Pulse Oximetry Oxygen Delivery Room Air Fraction of Inspired Oxygen 02/27/23 13:58 02/27/23 15:05 02/27/23 20:22 Temperature 98.7 F Pulse Rate 87 107 H 86 Respiratory Rate 20 18 20 Blood Pressure 133/88 Pulse Oximetry 95 Oxygen Delivery Fraction of Inspired Oxygen 02/27/23 20:33 02/27/23 20:00 02/27/23 20:00 Temperature 98.1 F Pulse Rate 84 96 84 Respiratory Rate 20 18 20 Blood Pressure 143/70 H Pulse Oximetry 100 100 Oxygen Delivery Room Air Fraction of Inspired Oxygen 21 02/28/23 02:14 02/28/23 05:45 02/28/23 07:24 Temperature 97.7 F Pulse Rate 85 88 96 Respiratory Rate 20 18 18 Blood Pressure 131/96 H Pulse Oximetry 95 Oxygen Delivery Fraction of Inspired Oxygen 02/28/23 07:26 02/28/23 07:41 Temperature Pulse Rate 95 Respiratory Rate 18 Blood Pressure Pulse Oximetry 97 Oxygen Delivery Room Air Fraction of Inspired Oxygen Intake/Output Intake/Output: Intake & Output 02/25/23 02/26/23 02/27/23 02/28/23 23:59 23:59 23:59 23:59 Intake Total 1220 / 1220 1280 / 1280 2150 / 2150 Output Total 400 / 400 1810 / 1810 1850 / 1850 300 / 300 Balance 820 / 820 -530 / -530 300 / 300 -300 / -300 Meds/Results Medications: Active Medications Generic Name Dose Route Start Last Admin Trade Name Freq PRN Reason Stop Dose Admin Acetaminophen 1,000 mg 02/27/23 08:30 02/28/23 05:53 Acetaminophen 500 Mg Tablet PO 1,000 mg Q6HR [facility] Administration Al Hydrox/Mg Hydrox/Simethicone 30 ml 02/23/23 22:15 Mag Hydrox/Al Hydrox/Simeth 30 Ml Udc PO Q6H PRN Heartburn Albuterol 2.5 mg 02/24/23 02:00 02/28/23 07:24 Albuterol Sulfate Neb 2.5 Mg/3 Ml Inh INHALATION 2.5 mg Q6HRT [facility] Administration Clobetasol Propionate 1 applic 02/26/23 15:00 02/27/23 20:35 Clobetasol Propionate 0.05% Oint 30 Gm TOPICAL 1 applic Q12HR [facility] Administration Cyclobenzaprine HCl 10 mg 02/25/23 13:59 02/26/23 16:52 Cyclobenzaprine Hcl 10 Mg Tablet PO 10 mg Q8H PRN Administration Muscle Spasm Ferrous Sulfate 324 mg 02/26/23 17:00 02/27/23 17:37 Ferrous Sulfate 324 Mg Tablet PO 324 mg [facility] Administration Hydromorphone HCl 0.5 mg 02/23/23 22:05 02/27/23 04:09 Hydromorphone Hcl Inj (*Crx) 1 Mg/Ml Syr IV PUSH 0.5 mg
--- NOTE | 2023-02-28 08:38 | PM.DS ---
DS: Admitting Diagnosis Discharge Date February 28 Admitting Diagnosis Fall and left hip pain DS: Discharge Diagnosis Discharge Diagnosis (1) Closed fracture of trochanter of left femur: Code(s): S72.102A - Unspecified trochanteric fracture of left femur, initial encounter for closed fracture Status: Deleted Assessment and Plan: Admit to regular medical floor Pain management Activity as tolerated with assistance and wheeled walker Supportive care Ortho consult Neurosurgery cleared for mobility. PT/OT ordered with WBAT and walker. Repeat XR from Monday-Per Dr Sanz fracture is stable and does not require surgical intervention. Will anticipate outpatient therapy and use of walker for the next two months. -checking vitamin D level. Calcium and phosphorous are normal. (2) Fall: Code(s): W19.XXXA - Unspecified fall, initial encounter Status: Acute Assessment and Plan: Fall precautions (3) COPD (chronic obstructive pulmonary disease): Code(s): J44.9 - Chronic obstructive pulmonary disease, unspecified Status: Acute Assessment and Plan: Breathing treatments q.6 p.r.n. (4) Athletes foot: Code(s): B35.3 - Tinea pedis Status: Acute Assessment and Plan: Less likely fungal - Scaling is improved but still present. Now noticing scaling to nails and scalp that is similar. I'm thinking this is plaque psorasis. Will start a steroid cream. (5) Gait disturbance: Code(s): R26.9 - Unspecified abnormalities of gait and mobility Status: Acute Assessment and Plan: Patient uses a walker at is an aid Unable to bear weight without pain (6) Essential hypertension: Code(s): I10 - Essential (primary) hypertension Status: Acute Assessment and Plan: -SBP has been consistently 140-160 mm hg. -Started Lisinopril 5 mg PO daily on 02/25. Increased to 10 mg today. Plan Patient will not require surgery for left hip fracture. It is stable as per Dr. Ward with Orthopedics. Patient will benefit from outpatient physical therapy and use of wheeled walker for the next 2 months. He is ready to be discharged from medical standpoint but we are waiting for prior Auth from insurance for outpatient therapy. DS: Summary Hospital Course Reason for hospitalization: Fall, left hip pain Hospital Course: Interval history: This is a 67-year-old male with past medical history significant for COPD/emphysema, tobacco dependence, patient smokes half a pack a day.? Patient presents to the emergency room after having a fall about a week ago somehow has managed to walk with the aid of a walker however on the day patient presents to the emergency room he was having pain upon weight-bearing and unable to ambulate.? 02/24: Patient is seen in bed reading and appears to be feeling well. He denies any complaints overnight. He explains that he came to the hospital for worsening left hip and leg pain after falling 4 weeks ago. He then fell another time when he walked away from his walker, he estimates that was a couple of weeks ago. Currently he is on bedrest and does not complain of pain when he is laying still. He does have some tenderness to palpation and swelling in the left leg. Ortho has been consulted and we appreciate recommendations. I spoke with the patient about an incidental lung nodule found on his chest x-ray. He says that he knows about it and was scheduled to follow up with a photoengraving sketch maker down in [place]. He just moved here a month ago to be closer to his daughter. Will obtain CT today to further investigate the lesions and can arrange for pulmonology follow up at discharge. He feels like his COPD is well controlled and denies SOB, chest pain, cough, or increased sputum. He does want a nicotine patch because he is a 1/2 ppd smoker. 02/25: Mr Phillip is doing well today. He says he slept okay but did have some muscle spasms last night to his left leg. I melissa
[2023-02-28] MEDS: NICOTINE (*PBKC) 14 MG PATCH 1 PATCH TRANSDERM (09:10)
[2023-02-28] MEDS: ASPIRIN 325 MG ENTERIC TABLET PO (09:10)
[2023-02-28] MEDS: lisinopriL 10 MG TABLET PO (09:10)
[2023-02-28] MEDS: FERROUS SULFATE 324 MG TABLET PO ×2 (09:10→17:40)
[2023-02-28] MEDS: MICONAZOLE NITRATE 2% CREAM 30 GM TUBE 1 APPLIC TOPICAL ×2 (09:11→20:15)
[2023-02-28] MEDS: CLOBETASOL PROPIONATE 0.05% OINT 30 GM 1 APPLIC TOPICAL ×2 (09:11→20:15)
--- NOTE | 2023-02-28 13:58 | PM.IMPN ---
Progress Note: A&P Assessment and Plan (1) Closed fracture of trochanter of left femur: Code(s): S72.102A - Unspecified trochanteric fracture of left femur, initial encounter for closed fracture Status: Deleted Assessment and Plan: Admit to regular medical floor Pain management Activity as tolerated with assistance and wheeled walker Supportive care Ortho consult Neurosurgery cleared for mobility. PT/OT ordered with WBAT and walker. Repeat XR from Monday-Per Dr Sanz fracture is stable and does not require surgical intervention. Will anticipate outpatient therapy and use of walker for the next two months. -checking vitamin D level. Calcium and phosphorous are normal. (2) Fall: Code(s): W19.XXXA - Unspecified fall, initial encounter Status: Acute Assessment and Plan: Fall precautions (3) COPD (chronic obstructive pulmonary disease): Code(s): J44.9 - Chronic obstructive pulmonary disease, unspecified Status: Acute Assessment and Plan: Breathing treatments q.6 p.r.n. (4) Athletes foot: Code(s): B35.3 - Tinea pedis Status: Acute Assessment and Plan: Less likely fungal - Scaling is improved but still present. Now noticing scaling to nails and scalp that is similar. I'm thinking this is plaque psorasis. Will start a steroid cream. (5) Gait disturbance: Code(s): R26.9 - Unspecified abnormalities of gait and mobility Status: Acute Assessment and Plan: Patient uses a walker at is an aid Unable to bear weight without pain (6) Essential hypertension: Code(s): I10 - Essential (primary) hypertension Status: Acute Assessment and Plan: -SBP has been consistently 140-160 mm hg. -Started Lisinopril 5 mg PO daily on 02/25. Increased to 10 mg today. Plan Patient will not require surgery for left hip fracture. It is stable as per Dr. Ward with Orthopedics. Patient will benefit from outpatient physical therapy and use of wheeled walker for the next 2 months. He is ready to be discharged from medical standpoint but we are waiting for prior Auth from insurance for outpatient therapy. Subjective Date/time seen: 02/27/23 13:58 Interval history: This is a 67-year-old male with past medical history significant for COPD/emphysema, tobacco dependence, patient smokes half a pack a day.? Patient presents to the emergency room after having a fall about a week ago somehow has managed to walk with the aid of a walker however on the day patient presents to the emergency room he was having pain upon weight-bearing and unable to ambulate.? 02/24: Patient is seen in bed reading and appears to be feeling well. He denies any complaints overnight. He explains that he came to the hospital for worsening left hip and leg pain after falling 4 weeks ago. He then fell another time when he walked away from his walker, he estimates that was a couple of weeks ago. Currently he is on bedrest and does not complain of pain when he is laying still. He does have some tenderness to palpation and swelling in the left leg. Ortho has been consulted and we appreciate recommendations. I spoke with the patient about an incidental lung nodule found on his chest x-ray. He says that he knows about it and was scheduled to follow up with a sales enablement lead down in [place]. He just moved here a month ago to be closer to his daughter. Will obtain CT today to further investigate the lesions and can arrange for pulmonology follow up at discharge. He feels like his COPD is well controlled and denies SOB, chest pain, cough, or increased sputum. He does want a nicotine patch because he is a 1/2 ppd smoker. 02/25: Mr Phillip is doing well today. He says he slept okay but did have some muscle spasms last night to his left leg. I told him I will place a prn order for flexeril should the spasms reoccur. Yesterday he was seen by neurosurgery for age indeterminate T4 burst fracture and T6 compr
--- NOTE | 2023-02-28 14:01 | P.PNIM_ITS ---
Progress Note: A&P Assessment and Plan (1) Closed fracture of trochanter of left femur: Code(s): S72.102A - Unspecified trochanteric fracture of left femur, initial encounter for closed fracture Status: Deleted Assessment and Plan: Admit to regular medical floor Pain management Activity as tolerated with assistance and wheeled walker Supportive care Ortho consult Neurosurgery cleared for mobility. PT/OT ordered with WBAT and walker. Repeat XR from Monday-Per Dr Sanz fracture is stable and does not require surgical intervention. Will anticipate outpatient therapy and use of walker for the next two months. -checking vitamin D level. Calcium and phosphorous are normal. (2) Fall: Code(s): W19.XXXA - Unspecified fall, initial encounter Status: Acute Assessment and Plan: Fall precautions (3) COPD (chronic obstructive pulmonary disease): Code(s): J44.9 - Chronic obstructive pulmonary disease, unspecified Status: Acute Assessment and Plan: Breathing treatments q.6 p.r.n. (4) Athletes foot: Code(s): B35.3 - Tinea pedis Status: Acute Assessment and Plan: Less likely fungal - Scaling is improved but still present. Now noticing scaling to nails and scalp that is similar. I'm thinking this is plaque psorasis. Will start a steroid cream. (5) Gait disturbance: Code(s): R26.9 - Unspecified abnormalities of gait and mobility Status: Acute Assessment and Plan: Patient uses a walker at is an aid Unable to bear weight without pain (6) Essential hypertension: Code(s): I10 - Essential (primary) hypertension Status: Acute Assessment and Plan: -SBP has been consistently 140-160 mm hg. -Started Lisinopril 5 mg PO daily on 02/25. Increased to 10 mg today. Plan Patient will not require surgery for left hip fracture. It is stable as per Dr. Ward with Orthopedics. Patient will benefit from outpatient physical therapy and use of wheeled walker for the next 2 months. He is ready to be discharged from medical standpoint but we are waiting for prior Auth from insurance for outpatient therapy. Subjective Date/time seen: 02/28/23 14:01 Interval history: This is a 67-year-old male with past medical history significant for COPD/emphysema, tobacco dependence, patient smokes half a pack a day.? Patient presents to the emergency room after having a fall about a week ago somehow has managed to walk with the aid of a walker however on the day patient presents to the emergency room he was having pain upon weight-bearing and unable to ambulate.? 02/24: Patient is seen in bed reading and appears to be feeling well. He denies any complaints overnight. He explains that he came to the hospital for worsening left hip and leg pain after falling 4 weeks ago. He then fell another time when he walked away from his walker, he estimates that was a couple of weeks ago. Currently he is on bedrest and does not complain of pain when he is laying still. He does have some tenderness to palpation and swelling in the left leg. Ortho has been consulted and we appreciate recommendations. I spoke with the patient about an incidental lung nodule found on his chest x-ray. He says that he knows about it and was scheduled to follow up with a molder meat down in [place]. He just moved here a month ago to be closer to his daughter. Will obtain CT today to further investigate the lesions and can arrange for pulmonology follow up at discharge. He feels like his COPD is well controlled and denies SOB, chest pain, cough, or increased sputum. He does want a nicotine
[2023-03-01] VITALS (7 sets, daily range): BP systolic 123–132; BP diastolic 75–88; PULSE 86–108; RESP 18–20; TEMP 36.5–37.2; O2SAT 95–97
[2023-03-01] MEDS: ACETAMINOPHEN 500 MG TABLET 1000 MG PO ×2 (05:37→12:22)
[2023-03-01] MEDS: ALBUTEROL SULFATE NEB 2.5 MG/3 ML INH INHALATION ×2 (07:45→13:26)
[2023-03-01] MEDS: IPRATROPIUM BR 0.02% INH SOLN 0.5 MG/2.5 ML VIAL INHALATION ×2 (07:45→13:26)
[2023-03-01] MEDS: FERROUS SULFATE 324 MG TABLET PO ×2 (09:08→16:34)
[2023-03-01] MEDS: ASPIRIN 325 MG ENTERIC TABLET PO (09:08)
[2023-03-01] MEDS: MICONAZOLE NITRATE 2% CREAM 30 GM TUBE 1 APPLIC TOPICAL (09:08)
[2023-03-01] MEDS: NICOTINE (*PBKC) 14 MG PATCH 1 PATCH TRANSDERM (09:08)
[2023-03-01] MEDS: lisinopriL 10 MG TABLET PO (09:08)
[2023-03-01] MEDS: CLOBETASOL PROPIONATE 0.05% OINT 30 GM 1 APPLIC TOPICAL (09:11)
--- NOTE | 2023-03-01 09:20 | PM.DS ---
DS: Admitting Diagnosis Discharge Date 03/01/2023 Admitting Diagnosis Closed fracture of the trochanter of left femur Fall COPD athlete's foot Gait disturbance DS: Discharge Diagnosis Discharge Diagnosis (1) Intertrochanteric fracture of left femur: Qualifiers: Encounter type: initial encounter Fracture alignment: nondisplaced Fracture type: closed Qualified Code(s): S72.145A - Nondisplaced intertrochanteric fracture of left femur, initial encounter for closed fracture Code(s): S72.142A - Displaced intertrochanteric fracture of left femur, initial encounter for closed fracture Status: Acute (2) Compression fracture: Status: Acute (3) COPD (chronic obstructive pulmonary disease): Code(s): J44.9 - Chronic obstructive pulmonary disease, unspecified Status: Acute (4) Essential hypertension: Code(s): I10 - Essential (primary) hypertension Status: Acute (5) Athletes foot: Code(s): B35.3 - Tinea pedis Status: Acute (6) Fall: Code(s): W19.XXXA - Unspecified fall, initial encounter Status: Acute (7) Gait disturbance: Code(s): R26.9 - Unspecified abnormalities of gait and mobility Status: Acute Plan Patient is able to mobilize with a walker and will go home with his daughter for more rehab. DS: Summary Hospital Course Reason for hospitalization: This is a 67-year-old male patient who was admitted to the hospital due to a left hip fracture nondisplaced through the intratrochanteric region. Hospital Course: This is a 67-year-old male with past medical history significant for COPD/emphysema, tobacco dependence, patient smokes half a pack a day.? Patient presents to the emergency room after having a fall about a week ago somehow has managed to walk with the aid of a walker however on the day patient presents to the emergency room he was having pain upon weight-bearing and unable to ambulate.? 02/24: Patient is seen in bed reading and appears to be feeling well. He denies any complaints overnight. He explains that he came to the hospital for worsening left hip and leg pain after falling 4 weeks ago. He then fell another time when he walked away from his walker, he estimates that was a couple of weeks ago. Currently he is on bedrest and does not complain of pain when he is laying still. He does have some tenderness to palpation and swelling in the left leg. Ortho has been consulted and we appreciate recommendations. I spoke with the patient about an incidental lung nodule found on his chest x-ray. He says that he knows about it and was scheduled to follow up with a knowledge engineer down in [place]. He just moved here a month ago to be closer to his daughter. Will obtain CT today to further investigate the lesions and can arrange for pulmonology follow up at discharge. He feels like his COPD is well controlled and denies SOB, chest pain, cough, or increased sputum. He does want a nicotine patch because he is a 1/2 ppd smoker. 02/25: Mr Phillip is doing well today. He says he slept okay but did have some muscle spasms last night to his left leg. I told him I will place a prn order for flexeril should the spasms reoccur. Yesterday he was seen by neurosurgery for age indeterminate T4 burst fracture and T6 compression fracture noted on his CT chest. According to patient these are old and neurosurgery has cleared him for mobility. PT/OT ordered and will work with patient today. Plan to re-xray his left hip so Dr Sanz can make a decision about surgical intervention. He Denies dizziness, headache, chest pain, shortness of breath, in cough, nausea, vomiting, diarrhea.? He has not had a bowel movement yet since being in the hospital but he feels he is going to have today.? He also reports that the scaling on the bottoms of his feet are much improved with application of the antifungal cream. ? His Dopplers to the left lower extremity were negative for DVT.? Swelling looks impro
[2023-03-01 19:16] LABS: Red Blood Cell Folate 670 ng/mL RBC (>280)
== END 2023-03-01 18:42 | disposition home or self-care (01) ==
LOC: ANHED 22:10 → ANH3MED 02-24 04:09
PROVIDERS: Nurse Practitioner Acute Care; Admitting Provider Internal Medicine; Emergency Provider Physician Assistant; Visit Provider Nurse Practitioner
DX: S72.145A Nondisplaced intertrochanteric fracture of left femur, initial encounter for closed fracture (principal); W01.0XXA Fall on same level from slipping, tripping and stumbling without subsequent striking against object, initial encounter; J44.9 Chronic obstructive pulmonary disease, unspecified; B35.3 Tinea pedis; R26.9 Unspecified abnormalities of gait and mobility; M17.12 Unilateral primary osteoarthritis, left knee; M11.262 Other chondrocalcinosis, left knee; I10 Essential (primary) hypertension; R22.42 Localized swelling, mass and lump, left lower limb; R94.31 Abnormal electrocardiogram [ECG] [EKG]; Z99.89 Dependence on other enabling machines and devices; Z79.51 Long term (current) use of inhaled steroids; F17.210 Nicotine dependence, cigarettes, uncomplicated
CPT/HCPCS: 36415; 71045; 71250; 73502; 73552; 73590; 80048; 80053; 80061; 81001; 82306; 82607; 82728; 82747; 83540; 83550; 83735; 84100; 85025; 85610; 85730; 93005; 93971; 94640; 96374; 96375; 97110; 97116; 97161; 97165; 97530; 97535; 99285; A9270; G0378; J1170; J2405

== ENCOUNTER 2023-03-12 14:31 | Inpatient (IN) | payer MEDICARE, SELFPAY ==
[2023-03-12] VITALS (14 sets, daily range): BP systolic 103–145; BP diastolic 66–94; PULSE 102–133; RESP 18–33; TEMP 36.8–36.9; O2SAT 90–100; BMI 21.6
--- NOTE | ~2023-03-12 | CT_ITS ---
EXAMINATION: CT abdomen pelvis wo con DATE: 03/17/2023 16:30 INDICATION: Abdominal pain. TECHNIQUE: Computed tomography (CT) of the abdomen and pelvis was performed without intravenous contr ast. Automated exposure control and iterative reconstruction technique were employed. The dose-length product was 458.98 mGy-cm. COMPARISON: Chest CT 03/12/2023 FINDINGS: The visualized portions of the lung bases demonstrate trace right and small left pleural ef fusions. There are tree-in-bud opacities in right middle lobe and right lower lobe. There are depende nt airspace opacities in left lower lobe. The heart size is normal. No pericardial effusion. The live r, gallbladder, spleen, pancreas, adrenal glands, and kidneys are normal. There is a left inguinal he rnia containing fat. There are no dilated loops of bowel. The appendix is normal. There is calcified atherosclerosis of the aorta and many of the other arteries. There are no pathologically enlarged lym ph nodes. There is no free intraperitoneal fluid. There is an intertrochanteric fracture of left prox imal femur with surrounding hematoma. The distal fracture fragment demonstrates external rotation, va adrianna angulation, and impaction. There are chronic bilateral L5 pars defects. There is 5 mm anterolisth esis of L5 on S1. There are chronic burst fractures of T11, T12, and L3. There is interbody fusion at T11-T12. IMPRESSION: 1. Pneumonia involving the right middle lobe, right lower lobe, and left lower lobe. 2. Small left pleural effusion. 3. Acute intertrochanteric fracture of proximal left femur. Reviewed, dictated and finalized at location A.
--- NOTE | ~2023-03-12 | XR_ITS ---
EXAMINATION: [id number] DATE: 03/12/2023 17:20 INDICATION: Left knee pain. TECHNIQUE: 2 views of left knee were obtained. COMPARISON: Left knee radiographs 02/26/2023 FINDINGS: Bone alignment is normal. No fracture. There is mild osteoarthritis of patellofemoral nick rtment. There is a staple in distal femur. No knee joint effusion. IMPRESSION: 1. Mild left knee osteoarthritis. Reviewed, dictated and finalized at location E.
--- NOTE | ~2023-03-12 | CT_ITS ---
EXAMINATION: CTA chest PE protocol DATE: 03/12/2023 16:56 INDICATION: Dyspnea. TECHNIQUE: Computed tomography angiography (CTA) of the chest was performed with 100 mL Omnipaque-350 intravenous contrast timed to evaluate the pulmonary arteries. Coronal maximum intensity projection 3D-reconstructions were created by the technologist. Automated exposure control and iterative reconst ruction technique were employed. The dose-length product was 431.58 mGy-cm. COMPARISON: Chest CT 02/24/23 FINDINGS: There is mild emphysema. Again seen are mild airspace opacities in right upper lobe with vo lume loss. There is mild atelectasis bilaterally. No pleural effusion. There is right ventricular enl argement of the heart. No pericardial effusion. There are acute pulmonary emboli in right middle lobe and right lower lobe. There are stable subacute burst fractures of T4 and T6. There are chronic burs t fractures of T12 and L1 with interbody fusion. There is mild thoracic spondylosis and moderate cerv ical spondylosis. IMPRESSION: 1. Acute pulmonary emboli in right middle lobe and right lower lobe. Sensitivity in other lobes is mo derately decreased by motion artifact. 2. New right ventricular enlargement of the heart, consistent with right heart strain. 3. Mild emphysema. 4. I discussed these results with Sheron Benz. Reviewed, dictated and finalized at location E. IMPRESSION: 1. Acute pulmonary emboli in right middle lobe and right lower lobe. Sensitivit y in other lobes is moderately decreased by motion artifact. 2. New right ventricular enlargement of the heart, consistent with right heart strain. 3. Mild emphysema. 4. I discussed these results with Sheron Benz.
--- NOTE | ~2023-03-12 | CT_ITS ---
EXAMINATION: CT brain wo con DATE: 03/12/2023 16:56 INDICATION: Confusion. TECHNIQUE: Computed tomography (CT) of the head was performed without intravenous contrast. The mA wa s adjusted according to patient size. Iterative reconstruction technique was employed. The dose-lengt h product was 605.33 mGy-cm. COMPARISON: None FINDINGS: There are scattered areas of low attenuation in the cerebral white matter. There is no intr acranial hemorrhage, acute infarction, or abnormal intracranial mass lesion. The ventricles are justice l in size. There is mild mucosal thickening in the paranasal sinuses. There are likely changes of ocu lar lens replacement surgeries. The mastoid air cells are normal. IMPRESSION: 1. Mild nonspecific cerebral white matter disease, which likely represents chronic small vessel ische eulogio disease. Reviewed, dictated and finalized at location E. IMPRESSION: 1. Mild nonspecific cerebral white matter disease, which likely represents celebrity manager latanya small vessel ischemic disease.
--- NOTE | ~2023-03-12 | XR_ITS ---
EXAMINATION: XR surgery orthopedic DATE: 03/21/2023 16:24 INDICATION: Intertrochanteric nailing of the left hip TECHNIQUE: 4 fluoroscopic images of the left hip and proximal femur were obtained during procedure pe rformed by Dr. Sanz. Radiologist was not present for the imaging or procedure. The amount of fluorosc opy time used during this procedure was 0.9 minutes. COMPARISON: CT dated 03/17/2023 FINDINGS: Interval open reduction internal fixation of a previously noted intratrochanteric fracture of the pro ximal left femur. The fracture is fixed with an antegrade intramedullary lester with femoral neck dynami c compression screw and distal interlocking screw. Alignment appears near-anatomic. No new fractures identified. IMPRESSION: 1. Near-anatomic alignment post open reduction and internal fixation of comminuted intratrochanteric fracture of the proximal left femur. Reviewed, dictated and finalized at location A. IMPRESSION: 1. Near-anatomic alignment post open reduction and internal fixation of comminu pattie intratrochanteric fracture of the proximal left femur.
--- NOTE | ~2023-03-12 | US_ITS ---
EXAMINATION: US venous doppler [facility] DATE: 03/13/2023 16:37 INDICATION: Pulmonary emboli . TECHNIQUE: Grayscale images without and with compression and Doppler images of the bilateral lower ex tremity veins were obtained. COMPARISON: Left lower extremity venous Doppler 02/24/2023. FINDINGS: The right common femoral vein, profunda (deep) femoral vein, femoral vein, popliteal vein, peroneal v ein, posterior tibial veins, gastrocnemius vein, and greater saphenous vein are patent. The left common femoral vein, profunda (deep) femoral vein, femoral vein, popliteal vein, peroneal v ein, posterior tibial veins, gastrocnemius vein, and greater saphenous vein are patent. IMPRESSION: 1. Patent bilateral lower extremity veins. No evidence of deep venous thrombosis. Reviewed, dictated and finalized at location K. IMPRESSION: 1. Patent bilateral lower extremity veins. No evidence of deep venous thrombos is.
--- NOTE | ~2023-03-12 | XR_ITS ---
EXAMINATION: XR hip LT 2V w AP pelvis DATE: 03/12/2023 17:19 INDICATION: Left hip pain. TECHNIQUE: An anteroposterior view of the pelvis and 2 views of left hip were obtained. COMPARISON: Left hip radiographs 02/26/2023 FINDINGS: There is an intertrochanteric fracture of proximal left femur. The distal fracture fragment demonstrates 15 degrees varus angulation, impaction, and 20 degrees posterior angulation. There is m ild osteoarthritis of hips. There is mild lumbar spondylosis. IMPRESSION: 1. Intertrochanteric fracture of proximal left femur with interval worsening of alignment. 2. Mild osteoarthritis of the hips. Reviewed, dictated and finalized at location E.
--- NOTE | ~2023-03-12 | XR_ITS ---
EXAMINATION: XR chest 1V DATE: 03/12/2023 17:19 INDICATION: Weakness. TECHNIQUE: A single frontal view of the chest was obtained. COMPARISON: Chest CT 03/12/2023 FINDINGS: There are airspace opacities with volume loss in right lung upper lobe. There are lucencies and interstitial opacities in the lungs, consistent with emphysema. No pleural effusion or pneumotho rax. The heart size is normal. The central pulmonary arteries are enlarged, consistent with pulmonary arterial hypertension. IMPRESSION: 1. Stable airspace opacities with volume loss in right lung upper lobe, likely scarring. 2. Emphysema. Reviewed, dictated and finalized at location E.
--- NOTE | 2023-03-12 15:04 | ECG_ITS ---
Measurements Intervals [place] Rate: 125 P: 74 ID: 167 QRS: 62 QRSD: 89 T: 72 QT: 318 QTc: 459 Interpretive Statements SINUS TACHYCARDIA DELAYED PRECORDIAL R/S TRANSITION BORDERLINE T WAVE ABNORMALITY- HIGH LATERAL LEADS BASELINE ARTIFACT- I, III, AVR, AVL, V1 ABNORMAL ECG COMPARED TO ECG 02/23/2023 22:13:46 SINUS TACHYCARDIA NOW PRESENT Electronically Signed On 03-12-2023 16:27:17 CDT by Dustin Church D.O.
--- NOTE | 2023-03-12 15:21 | ED.WEAKNESS ---
HPI - Weakness General Chief complaint: Weakness <Sheron Benz PA-C - Last Filed: 03/15/23 17:02> Stated complaint: WEAKNESS,ALT LOC <Sheron Benz PA-C - Last Filed: 03/15/23 17:02> Time Seen by Provider: 03/12/23 14:44 <Sheron Benz PA-C - Last Filed: 03/15/23 17:02> History of Present Illness HPI Narrative: 67-year-old male with a history of COPD and a intertrochanteric fracture of his left femur which he was hospitalized for from 02/23 to 03/01 reports for evaluation of generalized weakness for multiple weeks. Patient is a poor historian. He states he thinks he had a stroke prior to the fall that caused his intertrochanteric fracture of his left femur and believes that is causing his weakness today. He reports pain in his left hip and knee that is intermittent in nature since he was discharged from the hospital. He states since yesterday he has not been able to ambulate with a walker due to left leg pain and weakness, he is unable to lift it off of the bed which she states has been consistent since he was discharged from the hospital. Denies recent injuries or trauma to L hip since he was discharged, but does endorse he rode on the back of a truck bed which was a bumpy ride. He is reporting shortness of breath which is unchanged from his baseline and a cough. Pt also reports increased difficulty thinking of things on the spot and confusion since he was discharged. He denies chest pain, headache or vision changes, abdominal pain, nausea or vomiting, diarrhea, loss of sensation. Has been taking ibuprofen and Flexeril for his leg pain with improvement. Patient states he believes he had a fever 2 nights ago. <Sheron Benz PA-C - Last Filed: 03/15/23 17:02> Related Data Allergies/Adverse reactions: Allergies Allergy/AdvReac Type Severity Reaction Status Date / Time No Known Allergies Allergy Verified 02/23/23 18:36 <Sheron Benz PA-C - Last Filed: 03/15/23 17:02> Review of Systems Review of Systems: CONSTITUTIONAL: See HPI EYES: Denies visual changes, redness, or discharge. ENT: Denies rhinorrhea, congestion, sore throat, or otalgia. CARDIOVASCULAR: Denies chest pain, palpitations, or edema. RESPIRATORY: See HPI GASTROINTESTINAL: Denies abdominal pain, nausea, vomiting, or diarrhea. GENITOURINARY: Denies dysuria or hematuria. SKIN: Denies rash or itching. MUSCULOSKELETAL: Denies back pain, joint pain, or myalgia. NEUROLOGIC: See HPI PSYCHIATRIC: Denies anxiety or depression. <Sheron Benz PA-C - Last Filed: 03/15/23 17:02> [facility] Past Medical History Medical History: Medical History (Updated 03/15/23 @ 10:46 by Nigel Swenson MD) Chronic obstructive pulmonary disease Essential hypertension Intertrochanteric fracture of left femur impacted fracture mid January 2023. <Sheron Benz PA-C - Last Filed: 03/15/23 17:02> Surgical History Surgical History: Surgical History (Updated 03/13/23 @ 15:23 by Cleopatra Garber PA-C) History of cataract extraction <Sheron Benz PA-C - Last Filed: 03/15/23 17:02> Family History Family History: Family History (Updated 03/13/23 @ 15:23 by Cleopatra Garber PA-C) Other Family history unknown <Sheron Benz PA-C - Last Filed: 03/15/23 17:02> Social History Social History: Social History (Updated 03/13/23 @ 15:24 by Cleopatra Garber PA-C) Social History: Surrogate medical decision maker: Santos Foss, daughter. Code status: Full code. Smoking packs per day: 1 Smoking cigarettes per day: 20.0 Years smoked: 50 Smoking pack-years: 50.00 Smoking status: Current some day smoker Tobacco type: cigarettes Alcohol intake: current Drinks per week: 5 Substance use: never Lack of Transportation: No Lack of Food: Never True Current Housing: I Have Housing Concerned About Future Housing: No Difficulty Paying Gas/Electric Bills: No Diffic
[2023-03-12] MEDS: SODIUM CHLORIDE 0.9% IV 1,000 ML 999 ML IV CONT ×2 (15:27→18:11)
[2023-03-12 15:35] LABS: Basophils Absolute Auto 0.1 K/mm3 (0.0-0.1); Basophils Percent Auto 0.3 % (0.2-1.2); Eosinophils Absolute Auto 0.1 K/mm3 (0-0.3); Eosinophils Percent Auto 0.3 % (0-4.4); Hematocrit 31.7 % (42.0-52.0); Hemoglobin 10.2 g/dL (14.0-18.0); Immature Granulocyte Absolute 0.31 K/mm3 (0.00-0.031); Immature Granulocyte Percent A 1.7 % (0-0.5); Lymphocytes Absolute Auto 1.08 K/mm3 (0.9-3.2); Lymphocytes Percent Auto 6.1 % (18.3-44.2); Mean Corpuscular HGB Conc 32.2 g/dl (32-36); Mean Corpuscular Hemoglobin 29.3 pg (26-34); Mean Corpuscular Volume 91.1 fl (80-100); Mean Platelet Volume 9.1 fl (7.4-10.4); Monocytes Absolute Auto 1.3 K/mm3 (0.1-0.6); Monocytes Percent Auto 7.5 % (2.6-8.5); Neutrophils Absolute Auto 14.9 K/mm3 (1.3-6.7); Neutrophils Percent Auto 84.1 % (45.5-73.1); Platelet Count Result 649 k/mm3 (150-375); Red Blood Count 3.48 M/mm3 (4.6-6.20); White Blood Count 17.8 K/mm3 (4.5-10.0)
[2023-03-12 15:44] LABS: Alanine Aminotransferase 29 U/L (6-50); Albumin Level 4.1 g/dL (3.5-5.1); Alkaline Phosphatase 202 U/L (38-126); Anion Gap 16 mmol/L (8-16); Aspartate Amino Transferase 48 U/L (17-59); Bilirubin,Total 1.4 mg/dL (0.2-1.3); Blood Urea Nitrogen 59 mg/dL (9-20); Calcium 11.3 mg/dL (8.4-10.2); Carbon Dioxide 23 mmol/L (22-30); Chloride 104 mmol/L (98-107); Estimated CRCL calculation 44 ml/min; Estimated Glomerular Filt Rate 55; Glucose 123 mg/dL (65-110); Potassium 3.5 mmol/L (3.4-5.0); Sodium 143 mmol/L (137-145)
[2023-03-12 16:03] LABS: Appearance Urine Clear (Clear); Bacteria Urine None Seen /hpf; Bilirubin Urine Negative (Negative); Blood Urine Trace (Negative); Color Urine Dark Yellow (Yellow); Glucose Urine UA Negative (Negative); Ketones Urine Negative (Negative); Leukocyte Esterase Ur Negative LEU/UL (Negative); Nitrate Urine Negative (Negative); Protein Urine 2+ mg/dL (Negative); RBC Urine 0-2 /hpf (0-2); Specific Grav Ur 1.019 (1.001-1.035); Squamous Epithelial Cell Urine Occasional /hpf (Few); WBC Urine 0-5 /hpf; pH Urine 5.5 (5.0-9.0)
[2023-03-12 16:13] LABS: Add Urine Microscopic? YES
[2023-03-12] MEDS: CYCLOBENZAPRINE HCL 10 MG TABLET PO (16:15)
[2023-03-12 16:19] LABS: Amphetamine Screen Urine Negative (Negative); Barbiturate Screen Urine Negative (Negative); Benzodiazepines Screen Urine Negative (Negative); Cannabinoid Screen Urine Positive (Negative); Cocaine Screen Urine Negative (Negative); Methadone Screen Urine Negative (Negative); Opiate Screen Urine Negative (Negative); Phencyclidine Screen Urine Negative (Negative)
[2023-03-12 16:20] LABS: D Dimer 3.43 ug/mL (<0.48)
[2023-03-12] MEDS: ALBUTEROL SULFATE NEB 2.5 MG/3 ML INH INHALATION (16:24)
[2023-03-12] MEDS: IPRATROPIUM BR 0.02% INH SOLN 0.5 MG/2.5 ML VIAL INHALATION (16:24)
[2023-03-12 16:27] LABS: Ammonia < 9 umol/L (9-30); Salicylate < 1.0 mg/dL (2-20)
[2023-03-12] MEDS: MORPHINE SULFATE (*CRX) 2 MG/ML INJ IV PUSH (16:35)
--- NOTE | 2023-03-12 16:35 | PC.NURSE ---
Pt to CT scan via stretcher at this time.
[2023-03-12 16:37] LABS: Acetaminophen < 10 ug/mL (10-30); Ethanol < 10 mg/dL (<10)
[2023-03-12 17:08] LABS: Lipase 22 U/L (23-300)
[2023-03-12 17:21] LABS: NT Pro B Type Natriuretic Pept 658 pg/mL (19.9-100); Troponin I < 0.012 ng/mL (0.000-0.034)
[2023-03-12 17:29] LABS: INR 1.3; Prothrombin Time 16.6 Seconds (11.1-14.7)
[2023-03-12 17:30] LABS: Partial Thromboplastin Time 49.2 SECONDS (22.3-36.8)
[2023-03-12] MEDS: HEPARIN SOD/D5W 100 UNITS/ML 25,000 UNITS/250 ML BAG 11 UNITS IV CONT (17:32)
[2023-03-12] MEDS: HEPARIN SODIUM 5,000 UNITS/ML VIAL 5000 UNITS IV PUSH (17:32)
--- NOTE | 2023-03-12 17:54 | PC.NURSE ---
Per patient permission, update given to daughter Sarah at [phone]
--- NOTE | 2023-03-12 20:34 | ADMGEN ---
This patient, Kyle Phillip Jr., was admitted to IMU Room 200-01. Patient/family oriented to hospital policies and general routines including ID bracelet, bed and alarms, visiting hours, pain management, procedures, bathroom and other care routines, personal items, smoking policy, room service/diet, and visiting hours. Information on how to activate the Rapid Response Team has been discussed. Patient/Family are encouraged to report perceived risks to care and to ask questions if they do not understand what they are told or what they should do.
[2023-03-12] MEDS: MORPHINE SULFATE (*CRX) 4 MG/ML INJ IV PUSH (21:20)
--- NOTE | 2023-03-12 23:42 | PM.IMHP ---
H&P: HPI History of Present Illness Date/Time: 03/12/23 20:30 Chief Complaint: Weakness. Narrative: This is a 67-year-old male smoker with COPD who presented to the emergency department for evaluation of weakness. He is known to the hospitalist service from a recent admission earlier this month at which time he was admitted after a fall with a trochanteric fracture of the left femur. He was seen by orthopedic surgery and it was determined that he did not need surgery. He was referred for outpatient therapy and was told to use a wheeled walker for the next 8 weeks. He has difficulties using the walker and has not been able to get around much due to pain in the leg. Since discharge he admits that he rode in the back of a pickup truck bed and states that the ride was quite bumpy and that his hip has been more painful since that time. He has also been feeling a bit short of breath and has had some mild chest discomfort which he has difficulties describing. He feels confused and reports that he is having difficulties with word finding on occasion. Brain CT on arrival to the emergency department showed no acute findings. CTA of the chest showed acute pulmonary emboli in the right middle lobe and right lower lobe with new enlargement of the right ventricle consistent with heart strain. Left hip x-ray showed an inter trochanteric fracture of the proximal left femur with interval worsening of alignment. He was started on heparin drip and he is being admitted in this setting for further care. He denies headache, vertigo, focal weakness, paresthesias, fever, chills, sweats, sinus congestion, sore throat, cough, current chest pain, nausea, vomiting, diarrhea, and dysuria. Review of Systems Review of Systems: Twelve systems were reviewed and are negative except for as per HPI. [facility] Past Medical History Medical History (Updated 03/13/23 @ 15:23 by Cleopatra Garber PA-C) Chronic obstructive pulmonary disease Essential hypertension Intertrochanteric fracture of left femur impacted fracture mid January 2023. Surgical History Surgical History (Updated 03/13/23 @ 15:23 by Cleopatra Garber PA-C) History of cataract extraction Family History Family History (Updated 03/13/23 @ 15:23 by Cleopatra Garber PA-C) Other Family history unknown Social History Social History (Updated 07/17/23 @ 15:24 by Cleopatra Garber PA-C) Social History: Surrogate medical decision maker: Santos Foss, daughter. Code status: Full code. Smoking packs per day: 1 Smoking cigarettes per day: 20.0 Years smoked: 50 Smoking pack-years: 50.00 Smoking status: Current some day smoker Tobacco type: cigarettes Alcohol intake: current Drinks per week: 5 Substance use: never Lack of Transportation: No Lack of Food: Never True Current Housing: I Have Housing Concerned About Future Housing: No Difficulty Paying Gas/Electric Bills: No Difficulty Paying for Meds: No Currently Unemployed: No Education: Decline to Answer Difficulty w/ Childcare or Family Care: No Additional living arrangements comments: Lives in [place]. Spiritual care concerns: No Meds Home Medications and Allergies Home Medications Medication Instructions Recorded Confirmed Type acetaminophen 500 mg tablet 1,000 mg PO Q6HR pain 30 days #30 02/28/23 03/12/23 Rx tabs albuterol sulfate 2.5 mg/3 mL 2.5 mg (3 mL) inhalation Q6HRT 30 02/28/23 03/12/23 Rx (0.083 %) solution for nebulization days #360 mL aspirin 325 mg tablet,delayed 325 mg PO QAM 30 days #30 tabs 02/28/23 03/12/23 Rx release clobetasol 0.05 % topical ointment 1 applic topical Q12HR 30 days #1 g 02/28/23 03/12/23 Rx cyclobenzaprine 10 mg tablet 10 mg PO Q8H PRN Muscle Spasm 14 02/28/23 03/12/23 Rx days #15 tabs ferrous sulfate 325 mg (65 mg 324 mg PO BIDWM 30 days #60 tabs 02/28/23 03/12/23 Rx iron) tablet lisinopril 10 mg tablet 10 mg PO QAM 30 days #30 tabs
[2023-03-12 23:54] LABS: Partial Thromboplastin Time 62.4 SECONDS (22.3-36.8)
[2023-03-13] VITALS (18 sets, daily range): BP systolic 100–145; BP diastolic 64–72; PULSE 91–119; RESP 16–20; TEMP 36.4–36.9; O2SAT 93–100
--- NOTE | 2023-03-13 | ECHO_ITS ---
Patient Info Name: Kyle Phillip Age: 67 years : 1955 Gender: Male Ht: 69 in Wt: 146 lbs BSA: 1.79 m2 HR: 99 bpm BP: 111 / 72 mmHg Heart Rhythm: Sinus Rhythm Technical Quality: Poor Exam Date: 03/13/2023 2:30 PM Exam Location: [facility] Card Pulmonary Patient Status: Inpatient Admit Date: 03/12/2023 Staff Ordering Physician: Nathan Garcia MD [employer]: Mimi Price RDCS Attending Provider: Lyle Hernandez MD Exam Type: CA echo dop color flow w con Study Info Indications - PE Complete two-dimensional, color flow and Doppler transthoracic echocardiogram is performed with contrast to opacify the left ventricle and to improve the deliniation of the left ventricle endocardial borders. Contrast/Agitated Saline Contrast/Ag. Saline: Definity Amount: 5.00 ml Administered By: Mimi Price RDCS Existing IV Access: Yes IV Access Condition: patent with no signs of infiltration Reason for Poor Study: poor echocardiographic windows Summary 1. Technically difficult study, definity contrast injected to improve visualization. 2. Normal, hyperdynamic appearing left ventricular function. 3. Mild enlargement of the right ventricle. 4. Very small amount of tricuspid regurgitation with velocities indicating moderately elevated pulmonary artery pressure. Left Ventricle Left ventricular chamber dimension is normal. Left ventricular systolic function is hyperdynamic, estimated at >70%. The left ventricular diastolic function is grade I diastolic dysfunction. Right Ventricle Right ventricular chamber dimension is mildly enlarged. Right ventricular systolic function is normal. Left Atria Left atrial chamber dimension is normal. Right Atria Right atrial chamber dimension is normal. Aortic Valve The aortic valve is trileaflet. There is mild aortic valve sclerosis. Pulmonic Valve The pulmonic valve is not well visualized. Mitral Valve The mitral valve has normal leaflets. Tricuspid Valve The tricuspid valve leaflets are normal. There is trace tricuspid valve regurgitation. Moderate pulmonary hypertension, estimated pulmonary arterial systolic pressure is 51 mmHg. Pericardium/Pleural The pericardium appears normal. Aorta The aortic root size at the sinus of Valsalva is normal. Left Ventricular Outflow Tract Name Value Normal LVOT 2D LVOT Diameter 2.04 cm LVOT Doppler LVOT Peak Gradient 4 mmHg LVOT Mean Gradient 3 mmHg LVOT VTI 16.52 cm LVOT VTI/AV VTI Ratio 0.82 LVOT Stroke Volume 53.74 ml LVOT CO 5.82 l/min LVOT CI 3.25 L/min/m2 Pulmonic Valve Name Value Normal RVOT Doppler RVOT Peak Gradient 2 mmHg PV Doppler
[2023-03-13] MEDS: HEPARIN SODIUM 5,000 UNITS/ML VIAL 2500 UNITS IV PUSH ×2 (00:06→13:35)
[2023-03-13] MEDS: SODIUM CHLORIDE 0.9% IV 1,000 ML 75 ML IV CONT (04:38)
[2023-03-13] MEDS: HYDROcodone/acetaminophen (*CRX) 5-325 MG TABLET 1 TAB PO ×3 (04:41→23:40)
[2023-03-13 06:03] LABS: Hematocrit 26.4 % (42.0-52.0); Hemoglobin 8.5 g/dL (14.0-18.0); Mean Corpuscular HGB Conc 32.2 g/dl (32-36); Mean Corpuscular Hemoglobin 29.2 pg (26-34); Mean Corpuscular Volume 90.7 fl (80-100); Mean Platelet Volume 8.9 fl (7.4-10.4); Platelet Count Result 504 k/mm3 (150-375); Red Blood Count 2.91 M/mm3 (4.6-6.20)
[2023-03-13 06:15] LABS: Alanine Aminotransferase 20 U/L (6-50); Albumin Level 3.3 g/dL (3.5-5.1); Alkaline Phosphatase 167 U/L (38-126); Anion Gap 10 mmol/L (8-16); Aspartate Amino Transferase 32 U/L (17-59); Bilirubin,Total 1.9 mg/dL (0.2-1.3); Blood Urea Nitrogen 36 mg/dL (9-20); Calcium 10.2 mg/dL (8.4-10.2); Carbon Dioxide 24 mmol/L (22-30); Chloride 109 mmol/L (98-107); Estimated CRCL calculation 59 ml/min; Estimated Glomerular Filt Rate > 60; Glucose 109 mg/dL (65-110); Magnesium 1.6 mg/dL (1.6-2.3); Potassium 3.1 mmol/L (3.4-5.0); Sodium 143 mmol/L (137-145)
[2023-03-13 06:26] LABS: Partial Thromboplastin Time 72.1 SECONDS (22.3-36.8)
--- NOTE | 2023-03-13 08:44 | PCPTNOTE ---
Waiting of ortho consult and recommendations on weight bearing status. Please re-order when pt is medically appropriate.
[2023-03-13] MEDS: POTASSIUM CHLORIDE 20 MEQ PACKET (FOR LIQUID) 40 MEQ PO (09:38)
[2023-03-13] MEDS: MAGNESIUM SULF 2 GM/WATER 50ML 2 GM/50 ML BAG IVPB (09:38)
[2023-03-13] MEDS: IPRATROPIUM BR 0.02% INH SOLN 0.5 MG/2.5 ML VIAL INHALATION ×3 (10:00→20:00)
[2023-03-13] MEDS: LEVALBUTEROL NEB 1.25 MG/3 ML INHALATION ×3 (10:00→20:00)
--- NOTE | 2023-03-13 12:24 | PM.PNORT ---
Progress Note: A&P Assessment and Plan (1) Closed intertrochanteric fracture of left hip: Qualifiers: Encounter type: initial encounter Fracture alignment: displaced Qualified Code(s): S72.142A - Displaced intertrochanteric fracture of left femur, initial encounter for closed fracture Code(s): S72.142A - Displaced intertrochanteric fracture of left femur, initial encounter for closed fracture Status: Acute Assessment and Plan: 67-year-old male with displaced intertrochanteric fracture left hip. At this point I think his best course is going to be to stabilize this surgically however will need to be stabilized and cleared. I discussed this with the hospitalist group. Subjective Subjective Date/Time Seen: 03/13/23 12:24 Interval history: 67-year-old male known to me. He is over a month out from left intertrochanteric fracture that was being treated nonsurgically. He was readmitted with the PE. Had more recently increasing pain in his left hip. There has been displacement of his intertrochanteric fracture. Review of Systems Constitutional: Constitutional: Reports no additional constitutional complaints Respiratory: Respiratory: Denies dyspnea Musculoskeletal: Musculoskeletal: Reports as per HPI Exam Const: General: alert and awake; No acute distress HENMT: Head: normal to inspection Resp: Effort & Inspection: able to speak in complete sentences Cardio: Rate: tachycardic Rhythm: regular rhythm Peripheral pulses: other ( ) GI: Inspection: non-distended Skin: General skin exam: normal color Neuro: General: patient oriented x3 and moves all extremities (Limited movement left leg because of hip pain) Extrem: General: normal to inspection and other Other: Exam of the left lower extremity shows that he holds it in a flexed and externally rotated position. Grossly motor and sensory function intact left lower extremity. Radiology Reports: Comments: EXAMINATION: XR hip LT 2V w AP pelvis DATE: 03/12/2023 17:19 INDICATION: Left hip pain. TECHNIQUE: An anteroposterior view of the pelvis and 2 views of left hip were obtained. COMPARISON: Left hip radiographs 02/26/2023 FINDINGS: There is an intertrochanteric fracture of proximal left femur. The distal fracture fragment demonstrates 15 degrees varus angulation, impaction, and 20 degrees posterior angulation. There is mild osteoarthritis of hips. There is mild lumbar spondylosis. IMPRESSION: 1. Intertrochanteric fracture of proximal left femur with interval worsening of alignment. 2. Mild osteoarthritis of the hips. Reviewed, dictated and finalized at location E. Electronically signed by Rah Shukla M.D. on Data Vital Signs Vital Signs: Vital Signs - 24 hr 03/12/23 14:37 03/12/23 15:04 03/12/23 15:30 Temperature Pulse Rate 123 H 127 H Respiratory Rate 24 H Blood Pressure 106/73 Pulse Oximetry 95 100 Oxygen Delivery Room Air Room Air 03/12/23 15:54 03/12/23 16:24 03/12/23 17:34 Temperature Pulse Rate 106 H 102 H 127 H Respiratory Rate 24 H 21 H 33 H Blood Pressure 103/70 145/82 H Pulse Oximetry 100 100 Oxygen Delivery 03/12/23 18:12 03/12/23 18:50 03/12/23 19:12 Temperature Pulse Rate 124 H 117 H 119 H Respiratory Rate 21 H 21 H Blood Pressure 127/84 128/82 Pulse Oximetry 100 99 Oxygen Delivery 03/12/23 20:19 03/12/23 20:47 03/12/23 22:00 Temperature 98.5 F Pulse Rate 119 H 133 H 119 H Respiratory Rate 18 22 H Blood Pressure 139/94 H 135/66 Pulse Oximetry 100 90 Oxygen Delivery 03/12/23 23:08 03/12/23 23:47 03/13/23 00:00 Temperature 98.3 F Pulse Rate 120 H 117 H 115 H Respiratory Rate 22 H Blood Pressure 137/69 Pulse Oximetry 98 Oxygen Delivery Room Air 03/13/23 02:00 03/13/23 03:26 03/13/23 03:26 Temperature 98.3 F Pulse Rate 112 H 11
[2023-03-13 12:29] LABS: Partial Thromboplastin Time 69.1 SECONDS (22.3-36.8)
[2023-03-13] MEDS: PERFLUTREN LIPID MICROSPHERES 1.5 ML VIAL DILUTED TO 10 ML TOTAL VOLUME IV PUSH (14:55)
[2023-03-13] MEDS: HEPARIN SOD/D5W 100 UNITS/ML 25,000 UNITS/250 ML BAG 13 UNITS IV CONT (14:56)
[2023-03-13] MEDS: MORPHINE SULFATE (*CRX) 4 MG/ML INJ 2 MG IV PUSH (15:24)
--- NOTE | 2023-03-13 15:26 | PM.IMPN ---
Progress Note: A&P Assessment and Plan (1) Pulmonary embolism on right: Code(s): I26.99 - Other pulmonary embolism without acute cor pulmonale Status: Acute (2) Closed intertrochanteric fracture of left hip: Qualifiers: Encounter type: initial encounter Fracture alignment: displaced Qualified Code(s): S72.142A - Displaced intertrochanteric fracture of left femur, initial encounter for closed fracture Code(s): S72.142A - Displaced intertrochanteric fracture of left femur, initial encounter for closed fracture Status: Acute (3) Dehydration: Code(s): E86.0 - Dehydration Status: Acute (4) Chronic obstructive pulmonary disease: Code(s): J44.9 - Chronic obstructive pulmonary disease, unspecified Status: Acute Plan 67-year-old with past medical history of COPD presented for evaluation of weakness. She was admitted a month ago after a fall sustaining left trochanteric fracture. It was managed non operatively and was referred for outpatient therapy. Has been using wheeled walker since discharge per the ambulation has been limited due to pain in the left leg. His started getting more short of breath and had some chest discomfort and came back to the ED for evaluation. He also reported some confusion and difficulty in word finding. CT head did not show any acute findings CTA of the chest was done which showed acute pulmonary emboli in the right middle lobe and right lower lobe with new enlargement of the right ventricular consistent with heart strain. Left hip x-ray showed an intertrochanteric fracture of the proximal left femur with interval worsening of alignment. He was started on heparin drip and is admitted for further treatment. Discussed with Orthopedics. Blood cultures also tried positive for Gram-positive cocci in clusters. Troponin was negative. WBC count is elevated at 17,000 thousand on admission. Chest x-ray with stable airspace opacities with the volume loss in the right lung upper lobe likely scarring with associated emphysema. Continue on heparin drip for anticoagulation. Echocardiogram and lower extremity duplex ordered. Orthopedic is planning for surgical treatment for his displaced intertrochanteric fracture at this time. Will await medical stability prior to surgical treatment Subjective Date/time seen: 03/13/23 15:26 Interval history: 67-year-old with past medical history of COPD presented for evaluation of weakness. She was admitted a month ago after a fall sustaining left trochanteric fracture. It was managed non operatively and was referred for outpatient therapy. Has been using wheeled walker since discharge per the ambulation has been limited due to pain in the left leg. His started getting more short of breath and had some chest discomfort and came back to the ED for evaluation. He also reported some confusion and difficulty in word finding. CT head did not show any acute findings CTA of the chest was done which showed acute pulmonary emboli in the right middle lobe and right lower lobe with new enlargement of the right ventricular consistent with heart strain. Left hip x-ray showed an intertrochanteric fracture of the proximal left femur with interval worsening of alignment. He was started on heparin drip and is admitted for further treatment. Discussed with Orthopedics. Blood cultures also tried positive for Gram-positive cocci in clusters. Troponin was negative. WBC count is elevated at 17,000 thousand on admission. Chest x-ray with stable airspace opacities with the volume loss in the right lung upper lobe likely scarring with associated emphysema. Continue on heparin drip for anticoagulation. Echocardiogram and lower extremity duplex ordered. Orthopedic is planning for surgical treatment for his displaced intertrochanteric fracture at this time. Review of Systems Review of Systems: All systems reviewed & are unremarkable except as noted in HPI
[2023-03-13 19:55] LABS: Partial Thromboplastin Time 72.4 SECONDS (22.3-36.8)
[2023-03-14] VITALS (20 sets, daily range): BP systolic 106–149; BP diastolic 57–85; PULSE 92–134; RESP 18–24; TEMP 36.1–38; O2SAT 95–100
[2023-03-14] MEDS: IPRATROPIUM BR 0.02% INH SOLN 0.5 MG/2.5 ML VIAL INHALATION ×4 (01:10→19:30)
[2023-03-14] MEDS: LEVALBUTEROL NEB 1.25 MG/3 ML INHALATION ×4 (01:10→19:30)
[2023-03-14 02:11] LABS: Basophils Absolute Auto 0.1 K/mm3 (0.0-0.1); Basophils Percent Auto 0.3 % (0.2-1.2); Eosinophils Absolute Auto 0.2 K/mm3 (0-0.3); Eosinophils Percent Auto 1.1 % (0-4.4); Hematocrit 22.5 % (42.0-52.0); Hemoglobin 7.3 g/dL (14.0-18.0); Immature Granulocyte Absolute 0.13 K/mm3 (0.00-0.031); Immature Granulocyte Percent A 0.8 % (0-0.5); Lymphocytes Absolute Auto 1.15 K/mm3 (0.9-3.2); Lymphocytes Percent Auto 6.9 % (18.3-44.2); Mean Corpuscular HGB Conc 32.4 g/dl (32-36); Mean Corpuscular Hemoglobin 29.9 pg (26-34); Mean Corpuscular Volume 92.2 fl (80-100); Monocytes Percent Auto 5.9 % (2.6-8.5); Neutrophils Absolute Auto 14.2 K/mm3 (1.3-6.7); Platelet Count Result 434 k/mm3 (150-375); Red Blood Count 2.44 M/mm3 (4.6-6.20); White Blood Count 16.7 K/mm3 (4.5-10.0)
[2023-03-14 02:24] LABS: Partial Thromboplastin Time 79.6 SECONDS (22.3-36.8)
[2023-03-14 02:42] LABS: Alanine Aminotransferase 29 U/L (6-50); Albumin Level 2.9 g/dL (3.5-5.1); Alkaline Phosphatase 224 U/L (38-126); Anion Gap 8 mmol/L (8-16); Aspartate Amino Transferase 46 U/L (17-59); Bilirubin,Total 1.7 mg/dL (0.2-1.3); Blood Urea Nitrogen 23 mg/dL (9-20); Calcium 9.6 mg/dL (8.4-10.2); Carbon Dioxide 23 mmol/L (22-30); Chloride 107 mmol/L (98-107); Estimated CRCL calculation 73 ml/min; Estimated Glomerular Filt Rate > 60; Glucose 115 mg/dL (65-110); Magnesium 1.6 mg/dL (1.6-2.3); Sodium 138 mmol/L (137-145)
[2023-03-14] MEDS: POTASSIUM CHLORIDE 20 MEQ PACKET (FOR LIQUID) 40 MEQ PO (04:58)
[2023-03-14] MEDS: KCL 20 MEQ/SW 100 ML 100 ML 50 MEQ IVPB (04:58)
[2023-03-14] MEDS: HYDROcodone/acetaminophen (*CRX) 5-325 MG TABLET 1 TAB PO ×2 (05:10→19:57)
[2023-03-14 05:16] LABS: Hematocrit 25.3 % (42.0-52.0)
[2023-03-14 05:31] LABS: Iron 14 ug/dL (49-181)
[2023-03-14 05:42] LABS: Percent Iron Saturation 9 % (20-50)
[2023-03-14] MEDS: MAGNESIUM SULF 2 GM/WATER 50ML 2 GM/50 ML BAG IVPB (09:51)
[2023-03-14] MEDS: MORPHINE SULFATE (*CRX) 4 MG/ML INJ 2 MG IV PUSH ×2 (09:53→15:49)
[2023-03-14] MEDS: VANCOMYCIN 1,250 MG/NS 250 ML 1,250 MG/250 ML BAG 166.67 MG IVPB (09:53)
--- NOTE | 2023-03-14 12:02 | PM.PNORT ---
Progress Note: A&P Assessment and Plan (1) Closed intertrochanteric fracture of left hip: Qualifiers: Encounter type: initial encounter Fracture alignment: displaced Qualified Code(s): S72.142A - Displaced intertrochanteric fracture of left femur, initial encounter for closed fracture Code(s): S72.142A - Displaced intertrochanteric fracture of left femur, initial encounter for closed fracture Status: Acute Assessment and Plan: 67-year-old male with left IT hip fracture. Awaiting optimization. Hopefully will be able to proceed later this week. Will only need a short window of decreased anticoagulation. Subjective Subjective Date/Time Seen: 03/14/23 12:02 Interval history: 67-year-old male with left intertrochanteric hip fracture. If he is going to eventually have this fixed. Awaiting medical optimization. Exam Narrative: No change in status. He has soreness in left hip. Otherwise feeling well. Const: General: cooperative Objective Data Vital Signs Vital Signs: Vital Signs - 24 hr 03/13/23 14:15 03/13/23 14:38 03/13/23 14:00 Temperature Pulse Rate 98 91 99 Respiratory Rate 20 20 Blood Pressure Pulse Oximetry Oxygen Delivery Oxygen Flow Rate 03/13/23 16:00 03/13/23 16:00 03/13/23 16:00 Temperature 98.5 F Pulse Rate 106 H 110 H 104 H Respiratory Rate 20 Blood Pressure 118/65 Pulse Oximetry 96 Oxygen Delivery Room Air Oxygen Flow Rate 03/13/23 18:00 03/13/23 19:53 03/13/23 20:00 Temperature 97.6 F Pulse Rate 106 H 106 H 105 H Respiratory Rate 20 20 Blood Pressure 115/71 Pulse Oximetry 98 100 Oxygen Delivery Nasal Cannula Oxygen Flow Rate 2 03/13/23 20:00 03/13/23 20:13 03/13/23 20:00 Temperature Pulse Rate 100 103 H 99 Respiratory Rate 20 20 Blood Pressure Pulse Oximetry Oxygen Delivery Oxygen Flow Rate 03/13/23 22:00 03/14/23 00:00 03/14/23 00:00 Temperature 97.6 F Pulse Rate 98 98 99 Respiratory Rate 20 22 H Blood Pressure 134/67 Pulse Oximetry 100 100 Oxygen Delivery Nasal Cannula Oxygen Flow Rate 2 03/14/23 00:00 03/14/23 01:10 03/14/23 02:00 Temperature Pulse Rate 101 H 92 100 Respiratory Rate 18 Blood Pressure Pulse Oximetry Oxygen Delivery Oxygen Flow Rate 03/14/23 03:09 03/14/23 04:00 03/14/23 04:00 Temperature 98.3 F Pulse Rate 92 98 104 H Respiratory Rate 20 Blood Pressure 114/62 Pulse Oximetry 100 100 Oxygen Delivery Nasal Cannula Oxygen Flow Rate 2 03/14/23 06:00 03/14/23 07:05 03/14/23 07:05 Temperature Pulse Rate 104 H 113 H 113 H Respiratory Rate 18 18 Blood Pressure Pulse Oximetry 95 Oxygen Delivery Nasal Cannula Oxygen Flow Rate 2 03/14/23 07:15 03/14/23 08:00 03/14/23 08:00 Temperature 97 F L Pulse Rate 107 H 101 H Respiratory Rate 18 24 H Blood Pressure 108/57 L Pulse Oximetry 100 100 Oxygen Delivery Room Air Oxygen Flow Rate 03/14/23 08:00 03/14/23 10:00 Temperature Pulse Rate 117 H 105 H Respiratory Rate Blood Pressure Pulse Oximetry Oxygen Delivery Oxygen Flow Rate Intake/Output Intake/Output: Intake & Output 03/11/23 03/12/23 03/13/23 03/14/23 23:59 23:59 23:59 23:59 Intake Total 1999 1450 / 1450 520 / 520 Output Total 700 / 700 1000 / 1000 Balance 1999 750 / 750 -480 / -480 Meds/Results Medications: Active Medications Generic Name Dose Route Start Last Admin Trade Name Freq PRN Reason Stop Dose Admin Acetaminophen 650 mg 03/13/23 01:21 Acetaminophen 325 Mg Tablet PO Q6H PRN Mild Pain (1-3) or Fever Hydrocodone Bitart/Acetaminophen 1 tab 03/13/23 01:21 03/14/23 05:10 Hydrocodone/Acetaminophen (*Crx) 5-325 Mg Tablet PO 1 tab Q6H PRN Administration Pain Rated 4-6 Heparin Sodium (Porcine) 2,500 units 03/12/23 17:08 03/13/23 13:35 Heparin Sodium 5,000 Units/Ml Vi
[2023-03-14] MEDS: HEPARIN SOD/D5W 100 UNITS/ML 25,000 UNITS/250 ML BAG 13 UNITS IV CONT (14:09)
--- NOTE | 2023-03-14 14:50 | PM.IMPN ---
Progress Note: A&P Assessment and Plan (1) Pulmonary embolism on right: Code(s): I26.99 - Other pulmonary embolism without acute cor pulmonale Status: Acute (2) Closed intertrochanteric fracture of left hip: Qualifiers: Encounter type: initial encounter Fracture alignment: displaced Qualified Code(s): S72.142A - Displaced intertrochanteric fracture of left femur, initial encounter for closed fracture Code(s): S72.142A - Displaced intertrochanteric fracture of left femur, initial encounter for closed fracture Status: Acute (3) Dehydration: Code(s): E86.0 - Dehydration Status: Acute (4) Chronic obstructive pulmonary disease: Code(s): J44.9 - Chronic obstructive pulmonary disease, unspecified Status: Acute Plan 67-year-old with past medical history of COPD presented for evaluation of weakness. he was admitted a month ago after a fall sustaining left trochanteric fracture. It was managed non operatively and was referred for outpatient therapy. Has been using wheeled walker since discharge per the ambulation has been limited due to pain in the left leg. His started getting more short of breath and had some chest discomfort and came back to the ED for evaluation. He also reported some confusion and difficulty in word finding. CT head did not show any acute findings CTA of the chest was done which showed acute pulmonary emboli in the right middle lobe and right lower lobe with new enlargement of the right ventricular consistent with heart strain. Left hip x-ray showed an intertrochanteric fracture of the proximal left femur with interval worsening of alignment. He was started on heparin drip and is admitted for further treatment. Orthopedics on board and planning for surgical repair of left displaced intertrochanteric fracture. However acute PE and need for anticoagulation puts him at higher risk category. His still mildly tachycardic though not hypoxic. Echocardiogram is reassuring with only mildly enlarged right ventricular. Will like to continue anticoagulation with IV heparin monitoring the H&H regularly. H&H is does seem to be downtrending with no signs of acute bleeding. Complicating this is finding of bacteremia with Staphylococcus aureus. Will repeat blood culture today. He has been started on IV vancomycin since 03/13/2023. Unclear source could be from pneumonia. Chest x-ray with stable airspace opacities with volume loss in the right upper lobe likely scarring with associated emphysema. Venous duplex of the lower extremities came back negative for DVT. Pre operative IVC filter placement can be considered however with new blood culture will ideally would wait for clearance of bacteremia prior to this procedure. This was all discussed with the patient. Subjective Date/time seen: 03/14/23 14:50 Interval history: 67-year-old with past medical history of COPD presented for evaluation of weakness. She was admitted a month ago after a fall sustaining left trochanteric fracture. It was managed non operatively and was referred for outpatient therapy. Has been using wheeled walker since discharge per the ambulation has been limited due to pain in the left leg. His started getting more short of breath and had some chest discomfort and came back to the ED for evaluation. He also reported some confusion and difficulty in word finding. CT head did not show any acute findings CTA of the chest was done which showed acute pulmonary emboli in the right middle lobe and right lower lobe with new enlargement of the right ventricular consistent with heart strain. Left hip x-ray showed an intertrochanteric fracture of the proximal left femur with interval worsening of alignment. He was started on heparin drip and is admitted for further treatment. Discussed with Orthopedics. Blood cultures also tried positive for Gram-positive cocci in clusters. Troponin was negative. WBC count is elevat
[2023-03-14] MEDS: FERROUS SULFATE 325 MG TABLET DR PO (17:43)
[2023-03-14] MEDS: CLOBETASOL PROPIONATE 0.05% OINT 30 GM 1 APPLIC TOPICAL (19:59)
[2023-03-14] MEDS: ACETAMINOPHEN 325 MG TABLET 650 MG PO (20:02)
[2023-03-14] MEDS: CYCLOBENZAPRINE HCL 10 MG TABLET PO (20:03)
[2023-03-15] VITALS (24 sets, daily range): BP systolic 120–141; BP diastolic 71–87; PULSE 92–128; RESP 18–22; TEMP 36.6–38.3; O2SAT 96–100
[2023-03-15] MEDS: LEVALBUTEROL NEB 1.25 MG/3 ML INHALATION ×4 (01:17→20:40)
[2023-03-15] MEDS: IPRATROPIUM BR 0.02% INH SOLN 0.5 MG/2.5 ML VIAL INHALATION ×4 (01:17→20:40)
[2023-03-15 03:09] LABS: Basophils Absolute Auto 0.1 K/mm3 (0.0-0.1); Basophils Percent Auto 0.4 % (0.2-1.2); Eosinophils Absolute Auto 0.4 K/mm3 (0-0.3); Eosinophils Percent Auto 2.6 % (0-4.4); Hematocrit 24.4 % (42.0-52.0); Hemoglobin 7.7 g/dL (14.0-18.0); Immature Granulocyte Absolute 0.13 K/mm3 (0.00-0.031); Immature Granulocyte Percent A 0.8 % (0-0.5); Lymphocytes Absolute Auto 1.22 K/mm3 (0.9-3.2); Lymphocytes Percent Auto 7.8 % (18.3-44.2); Mean Corpuscular HGB Conc 31.6 g/dl (32-36); Mean Corpuscular Hemoglobin 29.4 pg (26-34); Mean Corpuscular Volume 93.1 fl (80-100); Mean Platelet Volume 9.3 fl (7.4-10.4); Monocytes Absolute Auto 0.7 K/mm3 (0.1-0.6); Monocytes Percent Auto 4.7 % (2.6-8.5); Neutrophils Percent Auto 83.7 % (45.5-73.1); Platelet Count Result 562 k/mm3 (150-375); Red Blood Count 2.62 M/mm3 (4.6-6.20); White Blood Count 15.6 K/mm3 (4.5-10.0)
[2023-03-15 03:32] LABS: Partial Thromboplastin Time 77.4 SECONDS (22.3-36.8)
[2023-03-15] MEDS: HYDROcodone/acetaminophen (*CRX) 5-325 MG TABLET 1 TAB PO ×2 (03:54→16:11)
[2023-03-15 04:00] LABS: Alanine Aminotransferase 39 U/L (6-50); Albumin Level 3.3 g/dL (3.5-5.1); Alkaline Phosphatase 336 U/L (38-126); Anion Gap 8 mmol/L (8-16); Aspartate Amino Transferase 56 U/L (17-59); Bilirubin,Total 1.1 mg/dL (0.2-1.3); Blood Urea Nitrogen 14 mg/dL (9-20); Calcium 9.9 mg/dL (8.4-10.2); Carbon Dioxide 25 mmol/L (22-30); Chloride 105 mmol/L (98-107); Estimated CRCL calculation 73 ml/min; Estimated Glomerular Filt Rate > 60; Glucose 112 mg/dL (65-110); Magnesium 1.7 mg/dL (1.6-2.3); Sodium 138 mmol/L (137-145)
[2023-03-15 04:08] LABS: Vancomycin Trough 10.9 ug/mL (10.0-20.0)
[2023-03-15] MEDS: VANCOMYCIN 1,250 MG/NS 250 ML 1,250 MG/250 ML BAG 166.67 MG IVPB (04:31)
[2023-03-15] MEDS: MAGNESIUM SULF 1 GM/D5W 100 ML 1 GM/100 ML BAG IVPB (10:00)
[2023-03-15] MEDS: CLOBETASOL PROPIONATE 0.05% OINT 30 GM 1 APPLIC TOPICAL ×2 (10:01→21:27)
[2023-03-15] MEDS: FERROUS SULFATE 325 MG TABLET DR PO (10:01)
[2023-03-15] MEDS: POTASSIUM CHLORIDE 20 MEQ PACKET (FOR LIQUID) 80 MEQ PO (10:01)
[2023-03-15] MEDS: MORPHINE SULFATE (*CRX) 4 MG/ML INJ 2 MG IV PUSH ×2 (10:01→21:26)
[2023-03-15] MEDS: lisinopriL 10 MG TABLET PO (10:01)
--- NOTE | 2023-03-15 10:43 | PM.IMPN ---
Progress Note: A&P Assessment and Plan (1) Bacteremia: Code(s): R78.81 - Bacteremia Status: Acute Assessment and Plan: bacteremia with Staphylococcus aureus. He has been started on IV vancomycin since 03/13/2023. Unclear source could be from pneumonia. Chest x-ray with stable airspace opacities with volume loss in the right upper lobe likely scarring with associated emphysema. Echocardiogram is reassuring with only mildly enlarged right ventricular but no vegetations (2) Pulmonary embolism on right: Code(s): I26.99 - Other pulmonary embolism without acute cor pulmonale Status: Acute Assessment and Plan: On heparin drip Venous duplex of the lower extremities came back negative for DVT. Pre operative IVC filter placement can be considered however with new blood culture will ideally wait for clearance of bacteremia prior to this procedure. (3) Closed intertrochanteric fracture of left hip: Qualifiers: Encounter type: initial encounter Fracture alignment: displaced Qualified Code(s): S72.142A - Displaced intertrochanteric fracture of left femur, initial encounter for closed fracture Code(s): S72.142A - Displaced intertrochanteric fracture of left femur, initial encounter for closed fracture Status: Acute Assessment and Plan: Orthopedic surgery on board and planning for surgical repair of left displaced intertrochanteric fracture once patient is medically optimized (4) Chronic obstructive pulmonary disease: Code(s): J44.9 - Chronic obstructive pulmonary disease, unspecified Status: Acute Assessment and Plan: Stable Subjective Date/time seen: 03/15/23 10:43 Interval history: Patient reports pain in lower extremities. No other complaints Review of Systems Review of Systems: All systems reviewed & are unremarkable except as noted in HPI and below Exam Narrative: General: Disheveled, mildly ill gentleman sitting up in bed. He appears older than his stated age. HEENT: Normocephalic, atraumatic. PERRL, EOMI. Sclera anicteric. Tacky mucous membranes. Edentulous. Neck: Supple. No JVD. Respiratory: Respirations are nonlabored. He is able to speak in full sentences. Lung sounds are a bit diminished throughout with scattered wheezing and occasional rhonchi which clear with cough. Cardiovascular: Mildly tachycardic with normal S1-S2. Gastrointestinal: Abdomen is soft, nontender, and nondistended with positive bowel sounds. Skin: Warm and dry. Nails are thickened and yellow. Scaly plaques on the feet consistent with tinea. Extremities: No cyanosis, clubbing, or significant edema. Musculoskeletal: Tenderness to palpation over the left anterolateral hip with limited active range of motion due to pain. He is neurovascular intact throughout the left lower extremity. Neurological: Alert and oriented x3. Cranial nerves 2-12 are grossly intact. Speech is clear but slow. No facial asymmetry. Generalized weakness without obvious focal deficits aside from the weakness in the left leg which is due to pain. No pronator drift. Psychiatric: Cooperative with flat mood and affect. Objective Data Vital Signs Vital Signs: Vital Signs - 24 hr 03/14/23 12:00 03/14/23 12:00 03/14/23 12:00 Temperature 97.3 F L Pulse Rate 113 H 112 H Respiratory Rate 20 Blood Pressure 106/62 Pulse Oximetry 96 99 Oxygen Delivery Room Air Oxygen Flow Rate 03/14/23 13:15 03/14/23 13:25 03/14/23 14:00 Temperature Pulse Rate 110 H 108 H 110 H Respiratory Rate 18 18 Blood Pressure Pulse Oximetry Oxygen Delivery Oxygen Flow Rate 03/14/23 16:00 03/14/23 16:00 03/14/23 18:00 Temperature 97.6 F Pulse Rate 93 115 H 132 H Respiratory Rate 20 Blood Pressure 123/80 Pulse Oximetry 95 Oxygen Delivery Oxygen Flow Rate 03/14/23 16:00 03/14/23 20:00 03/14/23 20:00 Temperature 100.4 F H Pulse Rate 115 H 122 H Respira
[2023-03-15] MEDS: HEPARIN SOD/D5W 100 UNITS/ML 25,000 UNITS/250 ML BAG 13 UNITS IV CONT (11:22)
[2023-03-15] MEDS: ceFAZolin 2 GM/D5W 50 ML 2 GM/50 ML BAG IVPB ×2 (14:11→21:27)
[2023-03-15] MEDS: ACETAMINOPHEN 325 MG TABLET 650 MG PO (18:46)
[2023-03-16] VITALS (25 sets, daily range): BP systolic 109–134; BP diastolic 60–89; PULSE 100–115; RESP 16–22; TEMP 37.4–38.4; O2SAT 94–100
[2023-03-16] MEDS: IPRATROPIUM BR 0.02% INH SOLN 0.5 MG/2.5 ML VIAL INHALATION ×4 (02:26→20:25)
[2023-03-16] MEDS: LEVALBUTEROL NEB 1.25 MG/3 ML INHALATION ×4 (02:26→20:25)
[2023-03-16 05:01] LABS: Magnesium 1.6 mg/dL (1.6-2.3); Potassium 3.9 mmol/L (3.4-5.0)
[2023-03-16] MEDS: HEPARIN SOD/D5W 100 UNITS/ML 25,000 UNITS/250 ML BAG 14 UNITS IV CONT (05:17)
[2023-03-16] MEDS: HEPARIN SODIUM 5,000 UNITS/ML VIAL 2500 UNITS IV PUSH (05:17)
[2023-03-16] MEDS: ceFAZolin 2 GM/D5W 50 ML 2 GM/50 ML BAG IVPB ×3 (05:19→21:49)
[2023-03-16] MEDS: MORPHINE SULFATE (*CRX) 4 MG/ML INJ 2 MG IV PUSH (07:03)
--- NOTE | 2023-03-16 08:29 | PM.IMPN ---
Progress Note: A&P Assessment and Plan (1) Bacteremia: Code(s): R78.81 - Bacteremia Status: Acute (2) Chronic obstructive pulmonary disease: Code(s): J44.9 - Chronic obstructive pulmonary disease, unspecified Status: Acute (3) Pulmonary embolism on right: Code(s): I26.99 - Other pulmonary embolism without acute cor pulmonale Status: Acute (4) Essential hypertension: Code(s): I10 - Essential (primary) hypertension Status: Acute (5) Closed intertrochanteric fracture of left hip: Qualifiers: Encounter type: initial encounter Fracture alignment: displaced Qualified Code(s): S72.142A - Displaced intertrochanteric fracture of left femur, initial encounter for closed fracture Code(s): S72.142A - Displaced intertrochanteric fracture of left femur, initial encounter for closed fracture Status: Acute Plan (1) Bacteremia: ?Code(s): R78.81 - Bacteremia ?Status:?Acute ?Assessment and Plan: bacteremia with Staphylococcus aureus from blood culture March 12.? He has been started on IV vancomycin since 03/13/2023.? Unclear source could be from pneumonia.? Chest x-ray with stable airspace opacities with volume loss in the right upper lobe likely scarring with associated emphysema. Echocardiogram is reassuring with only mildly enlarged right ventricular but no vegetations Repeated the blood culture March 15 has no bacteriuria growth (2) Pulmonary embolism on right: ?Code(s): I26.99 - Other pulmonary embolism without acute cor pulmonale ?Status:?Acute ?Assessment and Plan: On heparin drip Venous duplex of the lower extremities came back negative for DVT.? Pre operative IVC filter placement can be considered however with new blood culture will ideally wait for clearance of bacteremia prior to this procedure. (3) Closed intertrochanteric fracture of left hip: ?Qualifiers: ?Encounter type:?initial encounter??Fracture alignment:?displaced? Qualified Code(s):?S72.142A - Displaced intertrochanteric fracture of left femur, initial encounter for closed fracture ?Code(s): S72.142A - Displaced intertrochanteric fracture of left femur, initial encounter for closed fracture ?Status:?Acute ?Assessment and Plan: Orthopedic surgery on board and planning for surgical repair of left displaced intertrochanteric fracture once patient is medically optimized (4) Chronic obstructive pulmonary disease: ?Code(s): J44.9 - Chronic obstructive pulmonary disease, unspecified ?Status:?Acute ?Assessment and Plan: Subjective Date/time seen: 03/16/23 08:29 Interval history: I saw on exam patient today, patient denies chest pain, abdomen pain, shortness of breath, nausea vomiting black stools. Patient has no new issue events over the night Exam Narrative: General: Disheveled, mildly ill gentleman sitting up in bed. He appears older than his stated age. HEENT: Normocephalic, atraumatic. PERRL, EOMI. Sclera anicteric. Tacky mucous membranes. Edentulous. Neck: Supple. No JVD. Respiratory: Respirations are nonlabored. He is able to speak in full sentences. Lung sounds are a bit diminished throughout with scattered wheezing and occasional rhonchi which clear with cough. Cardiovascular: Mildly tachycardic with normal S1-S2. Gastrointestinal: Abdomen is soft, nontender, and nondistended with positive bowel sounds. Skin: Warm and dry. Nails are thickened and yellow. Scaly plaques on the feet consistent with tinea. Extremities: No cyanosis, clubbing, or significant edema. Musculoskeletal: Tenderness to palpation over the left anterolateral hip with limited active range of motion due to pain. He is neurovascular intact throughout the left lower extremity. Neurological: Alert and oriented x3. Cranial nerves 2-12 are grossly intact. Speech is clear but slow. No facial asymmetry. Generalized weakness without obvious focal deficits aside
[2023-03-16] MEDS: lisinopriL 10 MG TABLET PO (10:03)
[2023-03-16] MEDS: CLOBETASOL PROPIONATE 0.05% OINT 30 GM 1 APPLIC TOPICAL ×2 (10:04→20:20)
[2023-03-16] MEDS: FERROUS SULFATE 325 MG TABLET DR PO (10:04)
[2023-03-16 12:15] LABS: Partial Thromboplastin Time 72.9 SECONDS (22.3-36.8)
[2023-03-16 18:48] LABS: Partial Thromboplastin Time 72.8 SECONDS (22.3-36.8)
[2023-03-16] MEDS: HYDROcodone/acetaminophen (*CRX) 5-325 MG TABLET 1 TAB PO (22:00)
[2023-03-17] VITALS (26 sets, daily range): BP systolic 108–129; BP diastolic 67–79; PULSE 61–127; RESP 16–20; TEMP 36.4–38.4; O2SAT 95–100
[2023-03-17] MEDS: HEPARIN SOD/D5W 100 UNITS/ML 25,000 UNITS/250 ML BAG 14 UNITS IV CONT ×2 (00:34→21:45)
[2023-03-17 07:06] LABS: Partial Thromboplastin Time 76.3 SECONDS (22.3-36.8)
[2023-03-17] MEDS: LEVALBUTEROL NEB 1.25 MG/3 ML INHALATION ×3 (07:19→20:21)
[2023-03-17] MEDS: IPRATROPIUM BR 0.02% INH SOLN 0.5 MG/2.5 ML VIAL INHALATION ×3 (07:19→20:20)
--- NOTE | 2023-03-17 07:38 | PC.NURSE ---
Paper documentation exists on this patient due to [employer] [facility] downtime on 03/17/23 from 0100 to [0700] .
--- NOTE | 2023-03-17 08:48 | PM.IMPN ---
Progress Note: A&P Assessment and Plan (1) Bacteremia: Code(s): R78.81 - Bacteremia Status: Acute (2) Chronic obstructive pulmonary disease: Code(s): J44.9 - Chronic obstructive pulmonary disease, unspecified Status: Acute (3) Pulmonary embolism on right: Code(s): I26.99 - Other pulmonary embolism without acute cor pulmonale Status: Acute (4) Essential hypertension: Code(s): I10 - Essential (primary) hypertension Status: Acute (5) Closed intertrochanteric fracture of left hip: Qualifiers: Encounter type: initial encounter Fracture alignment: displaced Qualified Code(s): S72.142A - Displaced intertrochanteric fracture of left femur, initial encounter for closed fracture Code(s): S72.142A - Displaced intertrochanteric fracture of left femur, initial encounter for closed fracture Status: Acute Plan (1) Bacteremia: ?Code(s): R78.81 - Bacteremia ?Status:?Acute ?Assessment and Plan: bacteremia with Staphylococcus aureus from blood culture March 12.? He has been started on IV vancomycin since 03/13/2023.? Unclear source could be from pneumonia.? Chest x-ray with stable airspace opacities with volume loss in the right upper lobe likely scarring with associated emphysema. Echocardiogram is reassuring with only mildly enlarged right ventricular but no vegetations Repeated the blood culture March 15 has no bacteriuria growth (2) Pulmonary embolism on right: ?Code(s): I26.99 - Other pulmonary embolism without acute cor pulmonale ?Status:?Acute ?Assessment and Plan: On heparin drip Venous duplex of the lower extremities came back negative for DVT.? Pre operative IVC filter placement can be considered however with new blood culture will ideally wait for clearance of bacteremia prior to this procedure. (3) Closed intertrochanteric fracture of left hip: ?Qualifiers: ?Encounter type:?initial encounter??Fracture alignment:?displaced? Qualified Code(s):?S72.142A - Displaced intertrochanteric fracture of left femur, initial encounter for closed fracture ?Code(s): S72.142A - Displaced intertrochanteric fracture of left femur, initial encounter for closed fracture ?Status:?Acute ?Assessment and Plan: Orthopedic surgery on board and planning for surgical repair of left displaced intertrochanteric fracture once patient is medically optimized (4) Chronic obstructive pulmonary disease: ?Code(s): J44.9 - Chronic obstructive pulmonary disease, unspecified ?Status:?Acute ?Assessment and Plan: Profound anemia Hemoglobin 6.9 Transfuse 1 pack a RBC Patient is on heparin drip, order CT abdomen pelvis without contrast, need to rule out intra-abdominal bleeding Subjective Date/time seen: 03/17/23 08:48 Interval history: I saw on exam patient today, patient denies chest pain, abdomen pain, shortness of breath, nausea vomiting black stools. Hemoglobin dropped to 6.9 Exam Narrative: General: Disheveled, mildly ill gentleman sitting up in bed. He appears older than his stated age. HEENT: Normocephalic, atraumatic. PERRL, EOMI. Sclera anicteric. Tacky mucous membranes. Edentulous. Neck: Supple. No JVD. Respiratory: Respirations are nonlabored. He is able to speak in full sentences. Lung sounds are a bit diminished throughout with scattered wheezing and occasional rhonchi which clear with cough. Cardiovascular: Mildly tachycardic with normal S1-S2. Gastrointestinal: Abdomen is soft, nontender, and nondistended with positive bowel sounds. Skin: Warm and dry. Nails are thickened and yellow. Scaly plaques on the feet consistent with tinea. Extremities: No cyanosis, clubbing, or significant edema. Musculoskeletal: Tenderness to palpation over the left anterolateral hip with limited active range of motion due to pain. He is neurovascular intact throughout the left lower extremity. Neurological: Alert and oriente
[2023-03-17 09:37] LABS: Basophils Percent Auto 0.4 % (0.2-1.2); Eosinophils Absolute Auto 0.3 K/mm3 (0-0.3); Eosinophils Percent Auto 3.2 % (0-4.4); Hematocrit 22.1 % (42.0-52.0); Immature Granulocyte Absolute 0.07 K/mm3 (0.00-0.031); Immature Granulocyte Percent A 0.7 % (0-0.5); Lymphocytes Absolute Auto 1.08 K/mm3 (0.9-3.2); Lymphocytes Percent Auto 11.5 % (18.3-44.2); Mean Corpuscular HGB Conc 31.2 g/dl (32-36); Mean Corpuscular Volume 92.9 fl (80-100); Mean Platelet Volume 9.6 fl (7.4-10.4); Monocytes Absolute Auto 0.7 K/mm3 (0.1-0.6); Monocytes Percent Auto 7.8 % (2.6-8.5); Neutrophils Absolute Auto 7.2 K/mm3 (1.3-6.7); Neutrophils Percent Auto 76.4 % (45.5-73.1); Platelet Count Result 645 k/mm3 (150-375); Red Blood Count 2.38 M/mm3 (4.6-6.20); Red Cell Distribution Width 14.3 % (11.5-14.5); White Blood Count 9.4 K/mm3 (4.5-10.0)
[2023-03-17 09:39] LABS: Alanine Aminotransferase 29 U/L (6-50); Albumin Level 2.8 g/dL (3.5-5.1); Alkaline Phosphatase 395 U/L (38-126); Anion Gap 9 mmol/L (8-16); Aspartate Amino Transferase 44 U/L (17-59); Bilirubin,Total 0.5 mg/dL (0.2-1.3); Blood Urea Nitrogen 8 mg/dL (9-20); Calcium 9.1 mg/dL (8.4-10.2); Carbon Dioxide 27 mmol/L (22-30); Chloride 101 mmol/L (98-107); Estimated CRCL calculation 84 ml/min; Estimated Glomerular Filt Rate > 60; Glucose 114 mg/dL (65-110); Potassium 3.4 mmol/L (3.4-5.0); Sodium 137 mmol/L (137-145)
[2023-03-17 09:51] LABS: Hemoglobin 6.9 g/dL (14.0-18.0)
[2023-03-17] MEDS: FERROUS SULFATE 325 MG TABLET DR PO (09:57)
[2023-03-17] MEDS: CLOBETASOL PROPIONATE 0.05% OINT 30 GM 1 APPLIC TOPICAL ×2 (09:57→20:08)
[2023-03-17] MEDS: lisinopriL 10 MG TABLET PO (09:58)
[2023-03-17 10:54] LABS: Iron 21 ug/dL (49-181)
[2023-03-17 11:04] LABS: Percent Iron Saturation 12 % (20-50)
[2023-03-17] MEDS: TUBING, BLOOD PLUM PUMP TUBING 1 EACH XX (12:11)
[2023-03-17] MEDS: SODIUM CHLORIDE 0.9% IV 250 ML 30 ML IV CONT (12:11)
[2023-03-17 15:26] LABS: Total Bilirubin Imm Post TxRxn 0.6 mg/dL (0.2-1.3)
[2023-03-17 15:28] LABS: TXRXN Occult Blood Urine Immed Negative
[2023-03-17 15:29] LABS: TXRXN RBC Urine Immediate 0-2 /hpf (0-2)
[2023-03-17] MEDS: ceFAZolin 2 GM/D5W 50 ML 2 GM/50 ML BAG IVPB ×2 (17:32→21:45)
[2023-03-17] MEDS: HYDROcodone/acetaminophen (*CRX) 5-325 MG TABLET 1 TAB PO (20:09)
[2023-03-17] MEDS: CYCLOBENZAPRINE HCL 10 MG TABLET PO (20:10)
[2023-03-17 20:21] LABS: Total Bilirubin 5hr Post TX RX 1.1 mg/dL (0.2-1.3)
[2023-03-17 20:32] LABS: TXRXN Occult Blood Urine 4 Hr Negative (Negative); TXRXN RBC Urine 4 Hour 0-2 /hpf (0-2)
[2023-03-18] VITALS (21 sets, daily range): BP systolic 112–125; BP diastolic 64–76; PULSE 87–114; RESP 16–20; TEMP 36.3–37.2; O2SAT 96–100
[2023-03-18] MEDS: LEVALBUTEROL NEB 1.25 MG/3 ML INHALATION ×4 (01:54→20:00)
[2023-03-18] MEDS: IPRATROPIUM BR 0.02% INH SOLN 0.5 MG/2.5 ML VIAL INHALATION ×4 (01:54→20:00)
[2023-03-18] MEDS: ceFAZolin 2 GM/D5W 50 ML 2 GM/50 ML BAG IVPB ×3 (05:44→22:48)
[2023-03-18] MEDS: CLOBETASOL PROPIONATE 0.05% OINT 30 GM 1 APPLIC TOPICAL ×2 (08:51→20:33)
[2023-03-18] MEDS: FERROUS SULFATE 325 MG TABLET DR PO (08:52)
[2023-03-18] MEDS: lisinopriL 10 MG TABLET PO (08:52)
--- NOTE | 2023-03-18 09:10 | PM.IMPN ---
Progress Note: A&P Assessment and Plan (1) Bacteremia: Code(s): R78.81 - Bacteremia Status: Acute (2) Chronic obstructive pulmonary disease: Code(s): J44.9 - Chronic obstructive pulmonary disease, unspecified Status: Acute (3) Pulmonary embolism on right: Code(s): I26.99 - Other pulmonary embolism without acute cor pulmonale Status: Acute (4) Essential hypertension: Code(s): I10 - Essential (primary) hypertension Status: Acute (5) Closed intertrochanteric fracture of left hip: Qualifiers: Encounter type: initial encounter Fracture alignment: displaced Qualified Code(s): S72.142A - Displaced intertrochanteric fracture of left femur, initial encounter for closed fracture Code(s): S72.142A - Displaced intertrochanteric fracture of left femur, initial encounter for closed fracture Status: Acute Plan (1) Bacteremia: ?Code(s): R78.81 - Bacteremia ?Status:?Acute ?Assessment and Plan: bacteremia with Staphylococcus aureus from blood culture March 12.? He has been started on IV vancomycin since 03/13/2023.? Unclear source could be from pneumonia.? Chest x-ray with stable airspace opacities with volume loss in the right upper lobe likely scarring with associated emphysema. Echocardiogram is reassuring with only mildly enlarged right ventricular but no vegetations Repeated the blood culture March 15 has no bacteriuria growth (2) Pulmonary embolism on right: ?Code(s): I26.99 - Other pulmonary embolism without acute cor pulmonale ?Status:?Acute ?Assessment and Plan: On heparin drip Venous duplex of the lower extremities came back negative for DVT.? Pre operative IVC filter placement can be considered however with new blood culture will ideally wait for clearance of bacteremia prior to this procedure. (3) Closed intertrochanteric fracture of left hip: ?Qualifiers: ?Encounter type:?initial encounter??Fracture alignment:?displaced? Qualified Code(s):?S72.142A - Displaced intertrochanteric fracture of left femur, initial encounter for closed fracture ?Code(s): S72.142A - Displaced intertrochanteric fracture of left femur, initial encounter for closed fracture ?Status:?Acute ?Assessment and Plan: Orthopedic surgery on board and planning for surgical repair of left displaced intertrochanteric fracture once patient is medically optimized (4) Chronic obstructive pulmonary disease: ?Code(s): J44.9 - Chronic obstructive pulmonary disease, unspecified ?Status:?Acute ?Assessment and Plan: Profound anemia Hemoglobin 6.9 Transfuse 1 pack a RBC Patient is on heparin drip, order CT abdomen pelvis without contrast, need to rule out intra-abdominal bleeding. Ct shows no intra-abdominal bleeding ferritn 1070, will not give iron now Multifocal pneumonia CT scan reveals pneumonia involving right middle lobe right lower lobe and left lower lobe risk of S patient Continue cefazolin 2 g IV q.8 hours, and Flagyl 500 q.8 hours IV Aspiration precaution Subjective Date/time seen: 03/18/23 09:10 Interval history: I saw on exam patient today, patient denies chest pain, abdomen pain, shortness of breath, nausea vomiting black stools. Hemoglobin dropped to 7.4 Exam Narrative: General: Disheveled, mildly ill gentleman sitting up in bed. He appears older than his stated age. HEENT: Normocephalic, atraumatic. PERRL, EOMI. Sclera anicteric. Tacky mucous membranes. Edentulous. Neck: Supple. No JVD. Respiratory: Respirations are nonlabored. He is able to speak in full sentences. Lung sounds are a bit diminished throughout with scattered wheezing and occasional rhonchi which clear with cough. Cardiovascular: Mildly tachycardic with normal S1-S2. Gastrointestinal: Abdomen is soft, nontender, and nondistended with positive bowel sounds. Skin: Warm and dry. Nails are thickened and yellow. Scaly plaques on the f
[2023-03-18 09:11] LABS: Basophils Absolute Auto 0.1 K/mm3 (0.0-0.1); Basophils Percent Auto 0.7 % (0.2-1.2); Eosinophils Absolute Auto 0.3 K/mm3 (0-0.3); Eosinophils Percent Auto 3.8 % (0-4.4); Hematocrit 22.9 % (42.0-52.0); Hemoglobin 7.4 g/dL (14.0-18.0); Immature Granulocyte Absolute 0.05 K/mm3 (0.00-0.031); Immature Granulocyte Percent A 0.6 % (0-0.5); Lymphocytes Absolute Auto 0.95 K/mm3 (0.9-3.2); Lymphocytes Percent Auto 10.6 % (18.3-44.2); Mean Corpuscular HGB Conc 32.3 g/dl (32-36); Mean Corpuscular Hemoglobin 29.5 pg (26-34); Mean Corpuscular Volume 91.2 fl (80-100); Monocytes Absolute Auto 0.6 K/mm3 (0.1-0.6); Monocytes Percent Auto 6.8 % (2.6-8.5); Neutrophils Percent Auto 77.5 % (45.5-73.1); Platelet Count Result 570 k/mm3 (150-375); Red Blood Count 2.51 M/mm3 (4.6-6.20); Red Cell Distribution Width 13.9 % (11.5-14.5)
[2023-03-18 09:23] LABS: Partial Thromboplastin Time 85.7 SECONDS (22.3-36.8)
[2023-03-18] MEDS: HYDROcodone/acetaminophen (*CRX) 5-325 MG TABLET 1 TAB PO ×2 (12:07→20:31)
[2023-03-18] MEDS: metroNIDAZOLE 500 MG/ISO 100ML 500 MG/100 ML BAG 100 MG IVPB ×2 (13:57→22:47)
[2023-03-18] MEDS: HEPARIN SOD/D5W 100 UNITS/ML 25,000 UNITS/250 ML BAG 14 UNITS IV CONT (17:29)
[2023-03-18] MEDS: MORPHINE SULFATE (*CRX) 4 MG/ML INJ 2 MG IV PUSH (22:46)
[2023-03-19] VITALS (14 sets, daily range): BP systolic 124–136; BP diastolic 68–76; PULSE 92–111; RESP 16–22; TEMP 36.4–37.6; O2SAT 92–100
[2023-03-19] MEDS: ceFAZolin 2 GM/D5W 50 ML 2 GM/50 ML BAG IVPB ×3 (05:59→22:07)
[2023-03-19] MEDS: metroNIDAZOLE 500 MG/ISO 100ML 500 MG/100 ML BAG 100 MG IVPB ×3 (06:00→21:53)
[2023-03-19] MEDS: IPRATROPIUM BR 0.02% INH SOLN 0.5 MG/2.5 ML VIAL INHALATION ×3 (07:26→20:28)
[2023-03-19] MEDS: LEVALBUTEROL NEB 1.25 MG/3 ML INHALATION ×3 (07:26→20:28)
[2023-03-19 07:56] LABS: Basophils Absolute Auto 0.1 K/mm3 (0.0-0.1); Basophils Percent Auto 0.5 % (0.2-1.2); Eosinophils Absolute Auto 0.3 K/mm3 (0-0.3); Eosinophils Percent Auto 3.4 % (0-4.4); Hematocrit 24.5 % (42.0-52.0); Hemoglobin 7.8 g/dL (14.0-18.0); Immature Granulocyte Absolute 0.06 K/mm3 (0.00-0.031); Immature Granulocyte Percent A 0.7 % (0-0.5); Lymphocytes Absolute Auto 1.13 K/mm3 (0.9-3.2); Lymphocytes Percent Auto 12.3 % (18.3-44.2); Mean Corpuscular HGB Conc 31.8 g/dl (32-36); Mean Corpuscular Hemoglobin 29.4 pg (26-34); Mean Corpuscular Volume 92.5 fl (80-100); Mean Platelet Volume 8.9 fl (7.4-10.4); Monocytes Absolute Auto 0.8 K/mm3 (0.1-0.6); Monocytes Percent Auto 8.7 % (2.6-8.5); Neutrophils Absolute Auto 6.8 K/mm3 (1.3-6.7); Neutrophils Percent Auto 74.4 % (45.5-73.1); Platelet Count Result 632 k/mm3 (150-375); Red Blood Count 2.65 M/mm3 (4.6-6.20); Red Cell Distribution Width 14.2 % (11.5-14.5); White Blood Count 9.2 K/mm3 (4.5-10.0)
[2023-03-19] MEDS: CYCLOBENZAPRINE HCL 10 MG TABLET PO (09:00)
[2023-03-19] MEDS: lisinopriL 10 MG TABLET PO (10:03)
[2023-03-19] MEDS: CLOBETASOL PROPIONATE 0.05% OINT 30 GM 1 APPLIC TOPICAL ×2 (10:03→22:13)
[2023-03-19] MEDS: ENOXAPARIN 80 MG/0.8 ML SYRINGE 65 MG SUB-Q ×2 (10:03→22:07)
[2023-03-19] MEDS: HYDROcodone/acetaminophen (*CRX) 5-325 MG TABLET 1 TAB PO ×2 (10:59→22:08)
[2023-03-20] VITALS (15 sets, daily range): BP systolic 115–135; BP diastolic 60–79; PULSE 95–115; RESP 14–22; TEMP 36.6–37.1; O2SAT 94–100
[2023-03-20] MEDS: IPRATROPIUM BR 0.02% INH SOLN 0.5 MG/2.5 ML VIAL INHALATION ×4 (02:35→19:41)
[2023-03-20] MEDS: LEVALBUTEROL NEB 1.25 MG/3 ML INHALATION ×4 (02:35→19:42)
[2023-03-20] MEDS: HYDROcodone/acetaminophen (*CRX) 5-325 MG TABLET 1 TAB PO ×3 (04:20→19:58)
[2023-03-20] MEDS: ceFAZolin 2 GM/D5W 50 ML 2 GM/50 ML BAG IVPB ×2 (06:17→18:15)
[2023-03-20] MEDS: metroNIDAZOLE 500 MG/ISO 100ML 500 MG/100 ML BAG 100 MG IVPB ×3 (06:59→23:09)
[2023-03-20] MEDS: ENOXAPARIN 80 MG/0.8 ML SYRINGE 65 MG SUB-Q (09:37)
[2023-03-20] MEDS: CLOBETASOL PROPIONATE 0.05% OINT 30 GM 1 APPLIC TOPICAL ×2 (09:38→19:59)
[2023-03-20 09:41] LABS: Anion Gap 8 mmol/L (8-16); Blood Urea Nitrogen 11 mg/dL (9-20); Calcium 8.6 mg/dL (8.4-10.2); Carbon Dioxide 29 mmol/L (22-30); Chloride 98 mmol/L (98-107); Estimated CRCL calculation 84 ml/min; Estimated Glomerular Filt Rate > 60; Glucose 144 mg/dL (65-110); Potassium 3.3 mmol/L (3.4-5.0); Sodium 135 mmol/L (137-145)
[2023-03-20] MEDS: CYCLOBENZAPRINE HCL 10 MG TABLET PO ×2 (09:49→19:59)
[2023-03-20] MEDS: MORPHINE SULFATE (*CRX) 2 MG/ML INJ IV PUSH (09:49)
--- NOTE | 2023-03-20 13:14 | PM.IMPN ---
Progress Note: A&P Assessment and Plan (1) Bacteremia: Code(s): R78.81 - Bacteremia Status: Acute (2) Chronic obstructive pulmonary disease: Code(s): J44.9 - Chronic obstructive pulmonary disease, unspecified Status: Acute (3) Pulmonary embolism on right: Code(s): I26.99 - Other pulmonary embolism without acute cor pulmonale Status: Acute (4) Essential hypertension: Code(s): I10 - Essential (primary) hypertension Status: Acute (5) Closed intertrochanteric fracture of left hip: Qualifiers: Encounter type: initial encounter Fracture alignment: displaced Qualified Code(s): S72.142A - Displaced intertrochanteric fracture of left femur, initial encounter for closed fracture Code(s): S72.142A - Displaced intertrochanteric fracture of left femur, initial encounter for closed fracture Status: Acute Plan (1) Bacteremia: ?Code(s): R78.81 - Bacteremia ?Status:?Acute ?Assessment and Plan: bacteremia with Staphylococcus aureus from blood culture March 12.? He has been started on IV vancomycin since 03/13/2023.? Unclear source could be from pneumonia.? Chest x-ray with stable airspace opacities with volume loss in the right upper lobe likely scarring with associated emphysema. Echocardiogram is reassuring with only mildly enlarged right ventricular but no vegetations Repeated the blood culture March 15 has no bacteriuria growth (2) Pulmonary embolism on right: ?Code(s): I26.99 - Other pulmonary embolism without acute cor pulmonale ?Status:?Acute ?Assessment and Plan: Received heparin drip Venous duplex of the lower extremities came back negative for DVT.? On Lovenox 1 milligram/kilos q.12 hour (3) Closed intertrochanteric fracture of left hip: ?Qualifiers: ?Encounter type:?initial encounter??Fracture alignment:?displaced? Qualified Code(s):?S72.142A - Displaced intertrochanteric fracture of left femur, initial encounter for closed fracture ?Code(s): S72.142A - Displaced intertrochanteric fracture of left femur, initial encounter for closed fracture ?Status:?Acute ?Assessment and Plan: Orthopedic surgery on board and planning for surgical repair of left displaced intertrochanteric fracture once patient is medically optimized Now patient is a afebrile, hemodynamically stable, blood culture has no growth so far Orthopedic surgeon plans surgical treatment tomorrow (4) Chronic obstructive pulmonary disease: ?Code(s): J44.9 - Chronic obstructive pulmonary disease, unspecified ?Status:?Acute ?Assessment and Plan: Profound anemia Hemoglobin 6.9 Transfuse 1 pack a RBC Patient is on heparin drip, order CT abdomen pelvis without contrast, need to rule out intra-abdominal bleeding. Ct shows no intra-abdominal bleeding ferritn 1070, will not give iron now Will transfuse 2 pack RBC 4 for possible surgical procedure tomorrow Multifocal pneumonia CT scan reveals pneumonia involving right middle lobe right lower lobe and left lower lobe risk of S patient Continue cefazolin 2 g IV q.8 hours, 03/15 and Flagyl 500 q.8 hours IV 03/18 Aspiration precaution Patient has no shortness of breath, or O2 desaturation Subjective Date/time seen: 03/20/23 13:14 Interval history: I saw on exam patient today, patient denies chest pain, abdomen pain, shortness of breath, nausea vomiting black stools. Hemoglobin dropped to 7.4 Exam Narrative: General: Disheveled, mildly ill gentleman sitting up in bed. He appears older than his stated age. HEENT: Normocephalic, atraumatic. PERRL, EOMI. Sclera anicteric. Tacky mucous membranes. Edentulous. Neck: Supple. No JVD. Respiratory: Respirations are nonlabored. He is able to speak in full sentences. Lung sounds are a bit diminished throughout with scattered wheezing and occasional rhonchi which clear with cough. Cardiovascular: Mildly tachycardic with normal S1-
[2023-03-20 13:39] LABS: Hematocrit 23.7 % (42.0-52.0); Hemoglobin 7.2 g/dL (14.0-18.0); Mean Corpuscular HGB Conc 30.4 g/dl (32-36); Mean Corpuscular Hemoglobin 28.3 pg (26-34); Mean Corpuscular Volume 93.3 fl (80-100); Mean Platelet Volume 8.9 fl (7.4-10.4); Platelet Count Result 629 k/mm3 (150-375); Red Blood Count 2.54 M/mm3 (4.6-6.20); Red Cell Distribution Width 14.1 % (11.5-14.5); White Blood Count 7.5 K/mm3 (4.5-10.0)
--- NOTE | 2023-03-20 13:58 | PCNWS ---
Weekly nutritional screen. Patient is tolerating current Heart healthy diet with adequate intake 75-100% with 1 instance of 0%. No weight loss reported. No nutritional needs at this time.
--- NOTE | 2023-03-20 14:09 | PM.PNORT ---
Progress Note: A&P Assessment and Plan (1) Closed intertrochanteric fracture of left hip: Qualifiers: Encounter type: initial encounter Fracture alignment: displaced Qualified Code(s): S72.142A - Displaced intertrochanteric fracture of left femur, initial encounter for closed fracture Code(s): S72.142A - Displaced intertrochanteric fracture of left femur, initial encounter for closed fracture Status: Acute Assessment and Plan: 67-year-old male with subacute left eye the fracture. Will plan on holding Lovenox tonight. Surgery is planned for tomorrow. This will be open reduction internal fixation left IT hip fracture with a trochanteric nail device. Risks and potential complications were discussed in detail and questions answered. My biggest concern for him in the postop period is noncompliance and bearing weight on this prematurely need hardware failure. We discussed this specifically as well. Subjective Subjective Date/Time Seen: 03/20/23 14:09 Interval history: 67-year-old male with subacute left IT hip fracture. Has been medically optimized and plan on proceeding with surgery tomorrow. Review of Systems Review of Systems: All systems reviewed & are unremarkable except as noted in HPI and below Exam Const: General: cooperative Extrem: Other: Left lower extremity in traction. Resting comfortably in bed. Skin over the left hip area is reasonable. Neurovascular status left lower extremity unremarkable. Objective Data Vital Signs Vital Signs: Vital Signs - 24 hr 03/19/23 15:55 03/19/23 20:30 03/19/23 20:30 Temperature 98.2 F Pulse Rate 93 99 99 Respiratory Rate 17 20 18 Blood Pressure 126/74 Pulse Oximetry 97 94 Oxygen Delivery Room Air 03/19/23 20:37 03/19/23 20:00 03/19/23 20:00 Temperature 99.6 F Pulse Rate 100 100 Respiratory Rate 22 H 17 Blood Pressure 136/76 Pulse Oximetry 99 Oxygen Delivery Room Air 03/20/23 02:36 03/20/23 02:41 03/20/23 07:10 Temperature Pulse Rate 102 H 104 H 95 Respiratory Rate 22 H 20 18 Blood Pressure Pulse Oximetry 94 Oxygen Delivery Room Air 03/20/23 07:10 03/20/23 07:20 03/20/23 08:00 Temperature 98.8 F Pulse Rate 95 96 97 Respiratory Rate 18 18 18 Blood Pressure 132/72 Pulse Oximetry 95 Oxygen Delivery 03/20/23 13:00 03/20/23 13:09 Temperature Pulse Rate 111 H 108 H Respiratory Rate 18 18 Blood Pressure Pulse Oximetry Oxygen Delivery Intake/Output Intake/Output: Intake & Output 03/17/23 03/18/23 03/19/23 03/20/23 23:59 23:59 23:59 23:59 Intake Total 1820 / 1820 2152 / 2152 1979 / 1979 1983 / 1983 Output Total 395 / 395 1500 / 1500 1900 / 1900 700 / 700 Balance 1425 / 1425 652 / 652 80 / 80 1284 / 1284 Meds/Results Medications: Active Medications Generic Name Dose Route Start Last Admin Trade Name Freq PRN Reason Stop Dose Admin Acetaminophen 650 mg 03/13/23 01:21 03/15/23 18:46 Acetaminophen 325 Mg Tablet PO 650 mg Q6H PRN Administration Mild Pain (1-3) or Fever Hydrocodone Bitart/Acetaminophen 1 tab 03/13/23 01:21 03/20/23 12:57 Hydrocodone/Acetaminophen (*Crx) 5-325 Mg Tablet PO 1 tab Q6H PRN Administration Pain Rated 4-6 Clobetasol Propionate 1 applic 03/14/23 21:00 03/20/23 09:38 Clobetasol Propionate 0.05% Oint 30 Gm TOPICAL 1 applic Q12HR [facility] Administration Cyclobenzaprine HCl 10 mg 03/14/23 14:51 03/20/23 09:49 Cyclobenzaprine Hcl 10 Mg Tablet PO 10 mg Q8H PRN Administration Muscle Spasm Enoxaparin Sodium 65 mg 03/19/23 10:30 03/20/23 09:37 Enoxaparin 80 Mg/0.8 Ml Syringe SUB-Q 65 mg Q12HR [facility] Administration Cefazolin Sodium 2 gm in 50 mls @ 100 mls/hr 03/15/23 14:00 03/20/23 06:50 Ancef 2 Gm/D5w 50 Ml IVPB Infused Q8H [facility] Infusion Metronidazole 500 mg in 100 mls @ 100 mls/hr 03/18/23 14:00 03/20/23 07:52 Flagyl 500 Mg/Iso Soln 100 Ml IVPB
[2023-03-20] MEDS: POTASSIUM CHLORIDE 20 MEQ PACKET (FOR LIQUID) 40 MEQ PO (17:05)
[2023-03-20] MEDS: SODIUM CHLORIDE 0.9% IV 250 ML 30 ML IV CONT (17:05)
[2023-03-20 21:00] LABS: Hematocrit 28.2 % (42.0-52.0)
[2023-03-21] VITALS (24 sets, daily range): BP systolic 113–153; BP diastolic 70–93; PULSE 98–122; RESP 12–20; TEMP 36.4–37.2; O2SAT 90–100
[2023-03-21] MEDS: ceFAZolin 2 GM/D5W 50 ML 2 GM/50 ML BAG IVPB ×4 (00:13→22:30)
[2023-03-21] MEDS: IPRATROPIUM BR 0.02% INH SOLN 0.5 MG/2.5 ML VIAL INHALATION ×4 (01:41→19:18)
[2023-03-21] MEDS: LEVALBUTEROL NEB 1.25 MG/3 ML INHALATION ×4 (01:42→19:18)
[2023-03-21] MEDS: metroNIDAZOLE 500 MG/ISO 100ML 500 MG/100 ML BAG 100 MG IVPB ×3 (05:10→21:35)
[2023-03-21] MEDS: HYDROcodone/acetaminophen (*CRX) 5-325 MG TABLET 1 TAB PO (05:16)
[2023-03-21 05:36] LABS: Basophils Absolute Auto 0.1 K/mm3 (0.0-0.1); Eosinophils Absolute Auto 0.1 K/mm3 (0-0.3); Eosinophils Percent Auto 1.8 % (0-4.4); Hematocrit 27.3 % (42.0-52.0); Hemoglobin 8.6 g/dL (14.0-18.0); Immature Granulocyte Absolute 0.03 K/mm3 (0.00-0.031); Immature Granulocyte Percent A 0.4 % (0-0.5); Lymphocytes Absolute Auto 0.95 K/mm3 (0.9-3.2); Lymphocytes Percent Auto 13.2 % (18.3-44.2); Mean Corpuscular HGB Conc 31.5 g/dl (32-36); Mean Corpuscular Hemoglobin 29.4 pg (26-34); Mean Corpuscular Volume 93.2 fl (80-100); Monocytes Absolute Auto 0.6 K/mm3 (0.1-0.6); Monocytes Percent Auto 8.3 % (2.6-8.5); Neutrophils Absolute Auto 5.4 K/mm3 (1.3-6.7); Neutrophils Percent Auto 75.3 % (45.5-73.1); Platelet Count Result 699 k/mm3 (150-375); Red Blood Count 2.93 M/mm3 (4.6-6.20); Red Cell Distribution Width 13.8 % (11.5-14.5); White Blood Count 7.2 K/mm3 (4.5-10.0)
[2023-03-21 05:43] LABS: Alanine Aminotransferase 11 U/L (6-50); Albumin Level 2.9 g/dL (3.5-5.1); Alkaline Phosphatase 286 U/L (38-126); Anion Gap 9 mmol/L (8-16); Aspartate Amino Transferase 26 U/L (17-59); Bilirubin,Total 0.6 mg/dL (0.2-1.3); Blood Urea Nitrogen 11 mg/dL (9-20); Calcium 8.8 mg/dL (8.4-10.2); Carbon Dioxide 27 mmol/L (22-30); Chloride 99 mmol/L (98-107); Estimated CRCL calculation 74 ml/min; Estimated Glomerular Filt Rate > 60; Glucose 102 mg/dL (65-110); Potassium 3.9 mmol/L (3.4-5.0); Sodium 135 mmol/L (137-145)
--- NOTE | 2023-03-21 08:37 | PM.IMPN ---
Progress Note: A&P Assessment and Plan (1) Bacteremia: Code(s): R78.81 - Bacteremia Status: Acute (2) Chronic obstructive pulmonary disease: Code(s): J44.9 - Chronic obstructive pulmonary disease, unspecified Status: Acute (3) Pulmonary embolism on right: Code(s): I26.99 - Other pulmonary embolism without acute cor pulmonale Status: Acute (4) Essential hypertension: Code(s): I10 - Essential (primary) hypertension Status: Acute (5) Closed intertrochanteric fracture of left hip: Qualifiers: Encounter type: initial encounter Fracture alignment: displaced Qualified Code(s): S72.142A - Displaced intertrochanteric fracture of left femur, initial encounter for closed fracture Code(s): S72.142A - Displaced intertrochanteric fracture of left femur, initial encounter for closed fracture Status: Acute Plan (1) Bacteremia: ?Code(s): R78.81 - Bacteremia ?Status:?Acute ?Assessment and Plan: bacteremia with Staphylococcus aureus from blood culture March 12.? He has been started on IV vancomycin since 03/13/2023.? Unclear source could be from pneumonia.? Chest x-ray with stable airspace opacities with volume loss in the right upper lobe likely scarring with associated emphysema. Echocardiogram is reassuring with only mildly enlarged right ventricular but no vegetations Repeated the blood culture March 15 has no bacteriuria growth (2) Pulmonary embolism on right: ?Code(s): I26.99 - Other pulmonary embolism without acute cor pulmonale ?Status:?Acute ?Assessment and Plan: Received heparin drip Venous duplex of the lower extremities came back negative for DVT.? On Lovenox 1 milligram/kilos q.12 hour (3) Closed intertrochanteric fracture of left hip: ?Qualifiers: ?Encounter type:?initial encounter??Fracture alignment:?displaced? Qualified Code(s):?S72.142A - Displaced intertrochanteric fracture of left femur, initial encounter for closed fracture ?Code(s): S72.142A - Displaced intertrochanteric fracture of left femur, initial encounter for closed fracture ?Status:?Acute ?Assessment and Plan: Orthopedic surgery on board and planning for surgical repair of left displaced intertrochanteric fracture once patient is medically optimized Now patient is a afebrile, hemodynamically stable, blood culture has no growth so far Orthopedic surgeon plans surgical treatment today (4) Chronic obstructive pulmonary disease: ?Code(s): J44.9 - Chronic obstructive pulmonary disease, unspecified ?Status:?Acute ?Assessment and Plan: Profound anemia Hemoglobin 6.9 Transfuse 1 pack a RBC Patient is on heparin drip, order CT abdomen pelvis without contrast, need to rule out intra-abdominal bleeding. Ct shows no intra-abdominal bleeding ferritn 1070, will not give iron now Will transfuse 2 pack RBC 4 for possible surgical procedure tomorrow Multifocal pneumonia CT scan reveals pneumonia involving right middle lobe right lower lobe and left lower lobe risk of S patient Continue cefazolin 2 g IV q.8 hours, 03/15 and Flagyl 500 q.8 hours IV 03/18 Aspiration precaution Patient has no shortness of breath, or O2 desaturation Subjective Date/time seen: 03/21/23 08:37 Interval history: I saw exam patient today, patient feels better today, after receiving blood transfusion yesterday. Patient has no new issue events over the night. Patient is afebrile, hemodynamically stable, Exam Narrative: General: Disheveled, mildly ill gentleman sitting up in bed. He appears older than his stated age. HEENT: Normocephalic, atraumatic. PERRL, EOMI. Sclera anicteric. Tacky mucous membranes. Edentulous. Neck: Supple. No JVD. Respiratory: Respirations are nonlabored. He is able to speak in full sentences. Lung sounds are a bit diminished throughout with scattered wheezing and occasional rhonchi which clear with cough. [facility]
[2023-03-21] MEDS: MORPHINE SULFATE (*CRX) 2 MG/ML INJ IV PUSH ×2 (10:17→14:21)
--- NOTE | 2023-03-21 14:06 | WPDANESEPPF ---
Anes - Initial Pre Proc Eval Procedure: Operation Date: 03/21/23 15:00 Proposed Procedures p Left Hip Intertrochanteric Nail - Howie Sanz MD Date/Time: 03/21/23 14:06 Surgeon: Nigel Swenson MD Pre Op Diagnosis: PE, Intertrochanteric Fracture Patient Data Age: 67 Gender: M Height: 1.75 m Weight: 67.2 kg Last Vital Signs Temp 36.9 C 03/21/23 05:31 Pulse 106 H 03/21/23 13:55 Resp 20 03/21/23 13:55 BP 134/84 03/21/23 05:31 Pulse Ox 93 03/21/23 07:52 O2 Del Method Room Air 03/21/23 07:52 O2 Flow Rate 3 03/15/23 01:18 FiO2 21 03/18/23 16:00 Allergies Allergy/AdvReac Type Severity Reaction Status Date / Time No Known Allergies Allergy Verified 03/21/23 14:23 Home Medications Medication Instructions Recorded Confirmed Type acetaminophen 500 mg tablet 1,000 mg PO Q6HR pain 30 days #30 02/28/23 03/12/23 Rx tabs albuterol sulfate 2.5 mg/3 mL 2.5 mg (3 mL) inhalation Q6HRT 30 02/28/23 03/12/23 Rx (0.083 %) solution for nebulization days #360 mL aspirin 325 mg tablet,delayed 325 mg PO QAM 30 days #30 tabs 02/28/23 03/12/23 Rx release clobetasol 0.05 % topical ointment 1 applic topical Q12HR 30 days #1 g 02/28/23 03/12/23 Rx cyclobenzaprine 10 mg tablet 10 mg PO Q8H PRN Muscle Spasm 14 02/28/23 03/12/23 Rx days #15 tabs ferrous sulfate 325 mg (65 mg 324 mg PO BIDWM 30 days #60 tabs 02/28/23 03/12/23 Rx iron) tablet lisinopril 10 mg tablet 10 mg PO QAM 30 days #30 tabs 02/28/23 03/12/23 Rx Laboratory Tests 03/20/23 03/20/23 03/21/23 13:25 20:45 04:43 WBC 7.2 K/mm3 (4.5-10.0) RBC 2.93 L M/mm3 (4.6-6.20) Hgb 9.0 L g/dL 8.6 L g/dL (14.0-18.0) (14.0-18.0) Hct 28.2 L % 27.3 L % (42.0-52.0) (42.0-52.0) MCV 93.2 fl (80-100) MCH 29.4 pg (26-34) MCHC 31.5 L g/dl (32-36) RDW 13.8 % (11.5-14.5) Plt Count 699 H k/mm3 (150-375) MPV 9.0 fl (7.4-10.4) Immature Gran % (Auto) 0.4 % (0-0.5) Neut % (Auto) 75.3 H % (45.5-73.1) Lymph % (Auto) 13.2 L % (18.3-44.2) Edgar % (Auto) 8.3 % (2.6-8.5) Eos % (Auto) 1.8 % (0-4.4) Baso % (Auto) 1.0 % (0.2-1.2) Lymph # (Auto) 0.95 K/mm3 (0.9-3.2) Edgar # (Auto) 0.6 K/mm3 (0.1-0.6) Eos # (Auto) 0.1 K/mm3 (0-0.3) Baso # (Auto) 0.1 K/mm3 (0.0-0.1) Abs Immat Gran (auto) 0.03 K/mm3 (0.00-0.031) Absolute Neuts (auto) 5.4 K/mm3 (1.3-6.7) Absolute Nucleated RBC 0.0 K/mm3 (0.0-0.012) Nucleated RBC % 0.0 % (0.0-0.2) Sodium 135 L mmol/L (137-145) Potassium 3.9 mmol/L (3.4-5.0) Chloride 99 mmol/L (98-107) Carbon Dioxide 27 mmol/L (22-30) Anion Gap 9 mmol/L (8-16) BUN 11 mg/dL (9-20) Creatinine 0.80 mg/dL (0.7-1.3) Estim Creat Clear Calc 74 ml/min Estimated GFR > 60 (59 - ) Glucose 102 mg/dL (65-110) Calcium 8.8 mg/dL (8.4-10.2) Total Bilirubin 0.6 mg/dL (0.2-1.3) AST 26 U/L (17-59) ALT 11 U/L (6-50) Alkaline Phosphatase 286 H U/L (38-126) Total Protein 7.0 g/dL (6.3-8.2) Albumin 2.9 L g/dL (3.5-5.1) Blood Type A Positive Antibody Screen Negative Crossmatch See Detail Patient hx anesthesia problems: none Family hx anesthesia problems: none Results Review: All pre-operative results and documents have been reviewed as part of the pre-operative evaluation. [facility] Past Medical History Medical History (Updated 03/22/23 @ 12:44 by Howie Sanz MD) Chronic obstructive pulmonary disease Essential hypertension Intertrochanteric fracture of left femur impacted fracture mid January 2023. Pulmonary embolism on right Surg
[2023-03-21] MEDS: LACTATED RINGERS 1,000 ML 30 ML IV CONT ×2 (14:22→17:06)
--- NOTE | 2023-03-21 14:47 | WPDHPUPDATE1 ---
History and Physical Update Update Date/Time: 03/21/23 14:47 History and Physical has been reviewed, including an updated exam of the patient. There are NO changes in the patient's condition. Risks, benefits, and alternatives have been discussed and questions answered. Patient agrees to proceed with procedure.
[2023-03-21] MEDS: BUPivacaine HCL 0.5% PF 30 ML VIAL 10 ML INFILTRATE (16:22)
--- NOTE | 2023-03-21 16:44 | P.OP_ITS ---
Procedure Note - Detailed Date of Procedure 03/21/23 Pre-op Diagnosis Subacute intertrochanteric left hip fracture Post-op Diagnosis Same Procedure Performed ORIF left IT hip fracture using fluoroscopic assistance Surgeon Howie Sanz MD [employer] Instructor Kelly Cooper Anesthesia General Description of Procedure The patient was identified and proper site identified, then was taken to the operating room and after general anesthetic induction and intubation was transferred to the [place] table positioning supine taking care to properly pad position the torso and extremities. A provisional reduction was able to be obtained with fluoroscopic assistance. The left hip and thigh was then prepped and draped in the usual sterile fashion. A short incision was made proximal to the tip of the greater trochanter. Subcutaneous tissue was sharply dissected down to the gluteus fascia which was incised over the tip of the greater trochanter. An awl was used to create a starting hole through which a guide lester was inserted into the femoral canal verifying its position fluoroscopically. The one-step Reamer was used to prepare the entry point for the lester. A 125 degree, 11 millimeter short nail was then inserted to the appropriate level using the targeting device. Through a 2nd more distal incision under fluoroscopic visualization a 90 mm lag screw was inserted over a guidewire into the femoral neck and head securing it with the set screw. Through a 3rd more distal incision, using the targeting device, a distal interlocking screw was placed. The overall construct was assessed fluoroscopically on the AP and lateral views, and was noted to be satisfactory. The targeting device was re moved. The wounds were irrigated with sterile antibiotic solution. The fascia was reapproximated with 0 Vicryl as was the deeper layers of the subcu. Skin edges were reapproximated with three 0 V lock and sharon. Sterile dressing was applied. The procedure was well tolerated. There were no known intraoperative complications. Perioperative antibiotics were administered. Estimated Blood Loss -100.0 Urine Output -150.0 Drains No Packing No Pathology None sent Complications No immediate complications Condition Stable Disposition PACU [facility] Billing Surgery - Charge Forward: Surgery Billing ([id number]; [id number] - for intraoperative fluoroscopy)
--- NOTE | 2023-03-21 17:07 | SUR.PHASEI ---
1707: Simple mask removed.
[2023-03-21] MEDS: lisinopriL 10 MG TABLET PO (18:31)
[2023-03-21] MEDS: polyethylene glycoL 3350 17 GM POWD.PACK PO (18:31)
[2023-03-21] MEDS: SENNA/DOCUSATE SODIUM TABLET 2 TAB PO (18:33)
[2023-03-21] MEDS: ENOXAPARIN 80 MG/0.8 ML SYRINGE 65 MG SUB-Q (20:05)
[2023-03-21] MEDS: FAMOTIDINE 20 MG TABLET PO (20:05)
[2023-03-21] MEDS: CLOBETASOL PROPIONATE 0.05% OINT 30 GM 1 APPLIC TOPICAL (20:06)
[2023-03-22] VITALS (14 sets, daily range): BP systolic 105–130; BP diastolic 65–80; PULSE 92–106; RESP 16–18; TEMP 36.4–36.6; O2SAT 94–97
[2023-03-22] MEDS: LEVALBUTEROL NEB 1.25 MG/3 ML INHALATION ×4 (01:29→21:00)
[2023-03-22] MEDS: IPRATROPIUM BR 0.02% INH SOLN 0.5 MG/2.5 ML VIAL INHALATION ×4 (01:29→21:00)
[2023-03-22] MEDS: metroNIDAZOLE 500 MG/ISO 100ML 500 MG/100 ML BAG 100 MG IVPB ×3 (05:15→21:35)
[2023-03-22 05:41] LABS: Basophils Percent Auto 0.2 % (0.2-1.2); Hematocrit 26.4 % (42.0-52.0); Hemoglobin 8.5 g/dL (14.0-18.0); Immature Granulocyte Absolute 0.07 K/mm3 (0.00-0.031); Immature Granulocyte Percent A 0.6 % (0-0.5); Lymphocytes Absolute Auto 0.52 K/mm3 (0.9-3.2); Lymphocytes Percent Auto 4.2 % (18.3-44.2); Mean Corpuscular HGB Conc 32.2 g/dl (32-36); Mean Corpuscular Hemoglobin 29.7 pg (26-34); Mean Corpuscular Volume 92.3 fl (80-100); Mean Platelet Volume 8.9 fl (7.4-10.4); Monocytes Absolute Auto 0.5 K/mm3 (0.1-0.6); Monocytes Percent Auto 3.8 % (2.6-8.5); Neutrophils Absolute Auto 11.4 K/mm3 (1.3-6.7); Neutrophils Percent Auto 91.2 % (45.5-73.1); Platelet Count Result 684 k/mm3 (150-375); Red Blood Count 2.86 M/mm3 (4.6-6.20); Red Cell Distribution Width 13.8 % (11.5-14.5); White Blood Count 12.5 K/mm3 (4.5-10.0)
[2023-03-22 06:05] LABS: Anion Gap 9 mmol/L (8-16); Blood Urea Nitrogen 19 mg/dL (9-20); Calcium 8.5 mg/dL (8.4-10.2); Carbon Dioxide 25 mmol/L (22-30); Chloride 98 mmol/L (98-107); Estimated CRCL calculation 60 ml/min; Estimated Glomerular Filt Rate > 60; Glucose 138 mg/dL (65-110); Potassium 4.8 mmol/L (3.4-5.0); Sodium 132 mmol/L (137-145)
[2023-03-22] MEDS: ceFAZolin 2 GM/D5W 50 ML 2 GM/50 ML BAG IVPB ×2 (06:11→15:48)
--- NOTE | 2023-03-22 07:26 | WPDANESPN ---
Anes - Prog Note Post-Op Date/Time: 03/22/23 07:26 Cardiovascular status: normal (anemia) Respiratory status: normal Airway patency: baseline Mental status: baseline (confusion) Post-Op hydration status: normal Vital Signs: Last Vital Signs Temp 97.8 F 03/22/23 03:14 Pulse 103 H 03/22/23 03:14 Resp 18 03/22/23 03:14 BP 118/73 03/22/23 03:14 Pulse Ox 94 03/22/23 03:14 O2 Del Method Nasal Cannula 03/21/23 19:45 O2 Flow Rate 2 03/21/23 19:45 FiO2 21 03/21/23 09:00 Pain Score (VAS): 0/10 I/O: Intake & Output 03/21/23 03/21/23 03/22/23 15:59 23:59 07:59 Intake Total 350 1010 150 Output Total 450 345 Balance -100 665 150 Laboratory Tests 03/22/23 05:01 03/22/23 05:01 WBC Pending RBC Pending Hgb Pending Hct Pending MCV Pending MCH Pending MCHC Pending RDW Pending Plt Count Pending MPV Pending Immature Gran % (Auto) Pending Neut % (Auto) Pending Lymph % (Auto) Pending [place] % (Auto) Pending Eos % (Auto) Pending Baso % (Auto) Pending Lymph # (Auto) Pending [place] # (Auto) Pending Eos # (Auto) Pending Baso # (Auto) Pending Abs Immat Gran (auto) Pending Absolute Neuts (auto) Pending Absolute Nucleated RBC Pending Nucleated RBC % Pending Sodium 132 L Potassium 4.8 Chloride 98 Carbon Dioxide 25 Anion Gap 9 BUN 19 Creatinine 1.00 Estim Creat Clear Calc 60 Estimated GFR > 60 Glucose 138 H Calcium 8.5 Post-procedural complaints: none Patient Feedback: Patient satisfied with anesthetic care.
--- NOTE | 2023-03-22 10:43 | PM.IMPN ---
Progress Note: A&P Assessment and Plan (1) Bacteremia: Code(s): R78.81 - Bacteremia Status: Acute (2) Chronic obstructive pulmonary disease: Code(s): J44.9 - Chronic obstructive pulmonary disease, unspecified Status: Acute (3) Pulmonary embolism on right: Code(s): I26.99 - Other pulmonary embolism without acute cor pulmonale Status: Acute (4) Essential hypertension: Code(s): I10 - Essential (primary) hypertension Status: Acute (5) Closed intertrochanteric fracture of left hip: Qualifiers: Encounter type: initial encounter Fracture alignment: displaced Qualified Code(s): S72.142A - Displaced intertrochanteric fracture of left femur, initial encounter for closed fracture Code(s): S72.142A - Displaced intertrochanteric fracture of left femur, initial encounter for closed fracture Status: Acute Plan (1) Bacteremia: ?Code(s): R78.81 - Bacteremia ?Status:?Acute ?Assessment and Plan: bacteremia with Staphylococcus aureus from blood culture March 12.? He has been started on IV vancomycin since 03/13/2023.? Unclear source could be from pneumonia.? Chest x-ray with stable airspace opacities with volume loss in the right upper lobe likely scarring with associated emphysema. Echocardiogram is reassuring with only mildly enlarged right ventricular but no vegetations Repeated the blood culture March 15 has no bacteriuria growth (2) Pulmonary embolism on right: ?Code(s): I26.99 - Other pulmonary embolism without acute cor pulmonale ?Status:?Acute ?Assessment and Plan: Received heparin drip Venous duplex of the lower extremities came back negative for DVT.? On Lovenox 1 milligram/kilos q.12 hour (3) Closed intertrochanteric fracture of left hip: ?Qualifiers: ?Encounter type:?initial encounter??Fracture alignment:?displaced? Qualified Code(s):?S72.142A - Displaced intertrochanteric fracture of left femur, initial encounter for closed fracture ?Code(s): S72.142A - Displaced intertrochanteric fracture of left femur, initial encounter for closed fracture ?Status:?Acute ?Assessment and Plan: Orthopedic surgery on board and planning for surgical repair of left displaced intertrochanteric fracture once patient is medically optimized Now patient is a afebrile, hemodynamically stable, blood culture has no growth so far Orthopedic surgeon plans surgical treatment today (4) Chronic obstructive pulmonary disease: ?Code(s): J44.9 - Chronic obstructive pulmonary disease, unspecified ?Status:?Acute ?Assessment and Plan: Profound anemia Hemoglobin 6.9 Transfuse 1 pack a RBC Patient is on heparin drip, order CT abdomen pelvis without contrast, need to rule out intra-abdominal bleeding. Ct shows no intra-abdominal bleeding ferritn 1070, will not give iron now Will transfuse 2 pack RBC 4 for possible surgical procedure tomorrow Multifocal pneumonia CT scan reveals pneumonia involving right middle lobe right lower lobe and left lower lobe risk of S patient Continue cefazolin 2 g IV q.8 hours, 03/15 and Flagyl 500 q.8 hours IV 03/18 Aspiration precaution Patient has no shortness of breath, or O2 desaturation Subjective Date/time seen: 03/22/23 10:43 Interval history: No complaints Exam Narrative: General: Disheveled, mildly ill gentleman sitting up in bed. He appears older than his stated age. HEENT: Normocephalic, atraumatic. PERRL, EOMI. Sclera anicteric. Tacky mucous membranes. Edentulous. Neck: Supple. No JVD. Respiratory: Respirations are nonlabored. He is able to speak in full sentences. Lung sounds are a bit diminished throughout with scattered wheezing and occasional rhonchi which clear with cough. Cardiovascular: Mildly tachycardic with normal S1-S2. Gastrointestinal: Abdomen is soft, nontender, and nondistended with positive bowel sounds. Skin: Warm and dry. Nails are thickene
[2023-03-22] MEDS: HYDROcodone/acetaminophen (*CRX) 5-325 MG TABLET 1 TAB PO ×3 (10:45→21:42)
[2023-03-22] MEDS: SENNA/DOCUSATE SODIUM TABLET 2 TAB PO ×2 (10:45→16:37)
[2023-03-22] MEDS: lisinopriL 10 MG TABLET PO (10:45)
[2023-03-22] MEDS: polyethylene glycoL 3350 17 GM POWD.PACK PO (10:46)
[2023-03-22] MEDS: FAMOTIDINE 20 MG TABLET PO ×2 (10:46→21:33)
[2023-03-22] MEDS: ENOXAPARIN 80 MG/0.8 ML SYRINGE 65 MG SUB-Q ×2 (10:48→21:33)
--- NOTE | 2023-03-22 12:41 | PM.PNORT ---
Progress Note: A&P Assessment and Plan (1) Closed intertrochanteric fracture of left hip: Qualifiers: Encounter type: initial encounter Fracture alignment: displaced Qualified Code(s): S72.142A - Displaced intertrochanteric fracture of left femur, initial encounter for closed fracture Code(s): S72.142A - Displaced intertrochanteric fracture of left femur, initial encounter for closed fracture Status: Acute Plan 67-year-old male who is postop day one ORIF left IT hip fracture. Overall doing well. Therapy has been initiated. I emphasized the importance of compliance with a severely protected weight-bearing status for the next eight weeks. Would benefit from rehab placement. Following. Subjective Subjective Date/Time Seen: 03/22/23 12:41 Post Op day: 1 Principal diagnosis: Status post ORIF left ID hip fracture Interval history: 67-year-old male who is postop day one after ORIF left ID hip fracture. He said he already feels better. He is sitting up in the chair. Exam Const: General: cooperative, comfortable and no acute distress GI: Inspection: non-distended Extrem: Other: Left hip dressing dry. Grossly neurovascular status left lower extremity is intact. No calf pain. Objective Data Vital Signs Vital Signs: Vital Signs - 24 hr 03/21/23 13:46 03/21/23 13:55 03/21/23 14:15 Temperature 98.9 F Pulse Rate 110 H 106 H 111 H Respiratory Rate 20 20 18 Blood Pressure 144/86 H Pulse Oximetry 95 Oxygen Delivery Room Air Oxygen Flow Rate Fraction of Inspired Oxygen 03/21/23 13:44 03/21/23 16:34 03/21/23 16:50 Temperature 98.2 F 98.7 F Pulse Rate 100 110 H 106 H Respiratory Rate 18 14 15 Blood Pressure 140/78 118/70 113/71 Pulse Oximetry 95 100 100 Oxygen Delivery Simple Face Mask Simple Face Mask Oxygen Flow Rate 6 6 Fraction of Inspired Oxygen 03/21/23 16:53 03/21/23 17:05 03/21/23 17:20 Temperature Pulse Rate 112 H 105 H 108 H Respiratory Rate 12 13 15 Blood Pressure 114/75 124/82 137/84 Pulse Oximetry 100 100 98 Oxygen Delivery Simple Face Mask Simple Face Mask Room Air Oxygen Flow Rate 6 6 Fraction of Inspired Oxygen 03/21/23 17:45 03/21/23 18:00 03/21/23 18:30 Temperature 97.6 F 97.6 F 97.6 F Pulse Rate 110 H 109 H 115 H Respiratory Rate 15 15 16 Blood Pressure 140/92 H 141/93 H 153/85 H Pulse Oximetry 90 90 91 Oxygen Delivery Oxygen Flow Rate Fraction of Inspired Oxygen 03/21/23 18:25 03/21/23 19:19 03/21/23 19:28 Temperature Pulse Rate 108 H 109 H Respiratory Rate 20 20 Blood Pressure Pulse Oximetry 93 Oxygen Delivery Nasal Cannula Oxygen Flow Rate 2 Fraction of Inspired Oxygen 03/21/23 19:31 03/21/23 19:45 03/21/23 23:14 Temperature 97.9 F 98.3 F Pulse Rate 122 H 102 H Respiratory Rate 18 18 Blood Pressure 118/79 122/80 Pulse Oximetry 97 97 94 Oxygen Delivery Nasal Cannula Oxygen Flow Rate 2 Fraction of Inspired Oxygen 03/22/23 01:29 03/22/23 01:35 03/22/23 03:14 Temperature 97.8 F Pulse Rate 104 H 105 H 103 H Respiratory Rate 18 18 18 Blood Pressure 118/73 Pulse Oximetry 94 Oxygen Delivery Oxygen Flow Rate Fraction of Inspired Oxygen 03/22/23 07:29 03/22/23 07:29 03/22/23 07:45 Temperature Pulse Rate 101 H 102 H Respiratory Rate 18 18 Blood Pressure Pulse Oximetry 94 Oxygen Delivery Room Air Oxygen Flow Rate Fraction of Inspired Oxygen 03/22/23 08:21 03/22/23 10:16 03/22/23 10:28 Temperature 97.9 F Pulse Rate 106 H 104 H Respiratory Rate 18 Blood Pressure 105/70 112/65 Pulse Oximetry 95 95 Oxygen Delivery Room Air Oxygen Flow Rate Fraction of Inspired Oxygen 03/22/23 09:50 Temperature Pulse Rate Respiratory Rate Blood Pressure Pulse Oximetry Oxygen Delivery Room Air Oxygen Flow Rate Fraction of Inspired Oxygen Intake/Output Intake/Output: Intake & Output 0
--- NOTE | 2023-03-22 16:26 | PCPTNOTE ---
On 03/22/23, the student, FREDI Capellan, provided care and completed [facility] documentation on this patient. I have reviewed the student's documentation and agree with the findings.
[2023-03-23] VITALS (11 sets, daily range): BP systolic 130–131; BP diastolic 35–83; PULSE 92–112; RESP 18–24; TEMP 36.3–37; O2SAT 94–100
[2023-03-23] MEDS: IPRATROPIUM BR 0.02% INH SOLN 0.5 MG/2.5 ML VIAL INHALATION ×4 (02:50→20:31)
[2023-03-23] MEDS: LEVALBUTEROL NEB 1.25 MG/3 ML INHALATION ×4 (02:50→20:31)
[2023-03-23] MEDS: HYDROcodone/acetaminophen (*CRX) 5-325 MG TABLET 1 TAB PO ×3 (03:20→13:38)
[2023-03-23] MEDS: metroNIDAZOLE 500 MG/ISO 100ML 500 MG/100 ML BAG 100 MG IVPB ×3 (05:50→21:06)
[2023-03-23] MEDS: CYCLOBENZAPRINE HCL 10 MG TABLET PO (05:53)
[2023-03-23] MEDS: FAMOTIDINE 20 MG TABLET PO ×2 (09:37→21:06)
[2023-03-23] MEDS: lisinopriL 10 MG TABLET PO (09:37)
[2023-03-23] MEDS: CLOBETASOL PROPIONATE 0.05% OINT 30 GM 1 APPLIC TOPICAL (09:38)
[2023-03-23] MEDS: ENOXAPARIN 80 MG/0.8 ML SYRINGE 65 MG SUB-Q ×2 (09:38→21:06)
[2023-03-23] MEDS: polyethylene glycoL 3350 17 GM POWD.PACK PO (09:38)
[2023-03-23] MEDS: SENNA/DOCUSATE SODIUM TABLET 2 TAB PO (09:39)
--- NOTE | 2023-03-23 11:47 | PM.IMPN ---
Progress Note: A&P Assessment and Plan (1) Bacteremia: Code(s): R78.81 - Bacteremia Status: Acute (2) Chronic obstructive pulmonary disease: Code(s): J44.9 - Chronic obstructive pulmonary disease, unspecified Status: Acute (3) Pulmonary embolism on right: Code(s): I26.99 - Other pulmonary embolism without acute cor pulmonale Status: Acute (4) Essential hypertension: Code(s): I10 - Essential (primary) hypertension Status: Acute (5) Closed intertrochanteric fracture of left hip: Qualifiers: Encounter type: initial encounter Fracture alignment: displaced Qualified Code(s): S72.142A - Displaced intertrochanteric fracture of left femur, initial encounter for closed fracture Code(s): S72.142A - Displaced intertrochanteric fracture of left femur, initial encounter for closed fracture Status: Acute Plan (1) Bacteremia: ?Code(s): R78.81 - Bacteremia ?Status:?Acute Antibiotics stopped. (2) Pulmonary embolism on right: ?Code(s): I26.99 - Other pulmonary embolism without acute cor pulmonale ?Status:?Acute ?Assessment and Plan: Received heparin drip Venous duplex of the lower extremities came back negative for DVT.? On Lovenox 1 milligram/kilos q.12 hour Transition to oral anticoagulant prior to discharge (3) Closed intertrochanteric fracture of left hip: ?Qualifiers: ?Encounter type:?initial encounter??Fracture alignment:?displaced? Qualified Code(s):?S72.142A - Displaced intertrochanteric fracture of left femur, initial encounter for closed fracture ?Code(s): S72.142A - Displaced intertrochanteric fracture of left femur, initial encounter for closed fracture ?Status:?Acute ?Assessment and Plan: Orthopedic surgery on board and planning for surgical repair of left displaced intertrochanteric fracture once patient is medically optimized Now patient is a afebrile, hemodynamically stable, blood culture has no growth so far Orthopedic surgeon plans surgical treatment today (4) Chronic obstructive pulmonary disease: ?Code(s): J44.9 - Chronic obstructive pulmonary disease, unspecified ?Status:?Acute ?Assessment and Plan: Profound anemia Hemoglobin 6.9 Transfuse 1 pack a RBC Patient is on heparin drip, order CT abdomen pelvis without contrast, need to rule out intra-abdominal bleeding. Ct shows no intra-abdominal bleeding ferritn 1070, will not give iron now Will transfuse 2 pack RBC 4 for possible surgical procedure tomorrow Multifocal pneumonia CT scan reveals pneumonia involving right middle lobe right lower lobe and left lower lobe risk of S patient Continue cefazolin 2 g IV q.8 hours, 03/15 and Flagyl 500 q.8 hours IV 03/18 Aspiration precaution Patient has no shortness of breath, or O2 desaturation Subjective Date/time seen: 03/23/23 11:47 Interval history: No new issues Exam Narrative: General: Disheveled, mildly ill gentleman sitting up in bed. He appears older than his stated age. HEENT: Normocephalic, atraumatic. PERRL, EOMI. Sclera anicteric. Tacky mucous membranes. Edentulous. Neck: Supple. No JVD. Respiratory: Respirations are nonlabored. He is able to speak in full sentences. Lung sounds are a bit diminished throughout with scattered wheezing and occasional rhonchi which clear with cough. Cardiovascular: Mildly tachycardic with normal S1-S2. Gastrointestinal: Abdomen is soft, nontender, and nondistended with positive bowel sounds. Skin: Warm and dry. Nails are thickened and yellow. Scaly plaques on the feet consistent with tinea. Extremities: No cyanosis, clubbing, or significant edema. Musculoskeletal: Tenderness to palpation over the left anterolateral hip with limited active range of motion due to pain. He is neurovascular intact throughout the left lower extremity. Neurological: Alert and oriented x3. Cranial nerves 2-12 are grossly intact. Speech is clear
--- NOTE | 2023-03-23 15:49 | PM.PNORT ---
Progress Note: A&P Assessment and Plan (1) Closed intertrochanteric fracture of left hip: Qualifiers: Encounter type: initial encounter Fracture alignment: displaced Qualified Code(s): S72.142A - Displaced intertrochanteric fracture of left femur, initial encounter for closed fracture Code(s): S72.142A - Displaced intertrochanteric fracture of left femur, initial encounter for closed fracture Status: Acute Plan 67-year-old male who is postop day 2 ORIF left IT hip fracture. Overall doing well. Continue to mobilize with therapy. Reinforced the importance of compliance with protected weight-bearing status for the next eight weeks. Would benefit from rehab placement. I told him our office phone number would be placed on the discharge instructions. He is to call our office for follow-up. Following. Subjective Subjective Date/Time Seen: 03/23/23 15:49 Post Op day: 2 Principal diagnosis: Status post ORIF left IT hip fracture Interval history: 67-year-old male who is postop day 2 after ORIF left IT hip fracture. He is feeling better and is able to transfer to the chair carefully. He reports maintaining his weight bearing status. Review of Systems Constitutional: Constitutional: Reports as per HPI Cardiovascular: Cardiovascular: Reports as per HPI Respiratory: Respiratory: Reports as per HPI Gastrointestinal: Gastrointestinal: Reports as per HPI Musculoskeletal: Musculoskeletal: Reports no additional musculoskeletal complaints and Reports as per HPI Neurologic: Reports system reviewed and no additional complaints, except as documented and Reports as per HPI Psychiatric: Psychiatric: Reports as per HPI Hematologic/Lymphatic: Hematologic/Lymphatic: Reports as per HPI Allergic/Immunologic: Allergic/Immunologic: Reports as per HPI Exam Const: General: cooperative, comfortable and no acute distress Nutritional Appearance: average body habitus Orientation/consciousness: patient oriented x3 Limitations: no limitations HENMT: Head: normocephalic and atraumatic Ears: hearing grossly normal bilaterally Mouth: Yes moist mucous membranes Teeth and gingiva: fair dentition Eyes: General: appearance normal, both eyes and all related structures Alignment and Position: alignment normal Pupils: Equal, round and reactive pupils present Neck: Neck: normal visual inspection Chest: Chest palpation & inspection: normal inspection of the chest Resp: Effort & Inspection: normal respiratory effort and able to speak in complete sentences GI: Inspection: non-distended GI Palp: Yes Soft to palpation and No Tenderness to palpation present (GI) Neuro: General: patient oriented x3 Cranial nerves: Yes Equal, round and reactive pupils present Speech: normal speech Sensory Exam: normal sensation Extrem: Other: Left hip dressing is clean and dry. Calves negative. Neurovascular status left lower extremity intact. Psych: Appearance: grossly normal Mental Status: mental status grossly normal Radiology Reports: Comments: EXAMINATION: XR surgery orthopedic DATE: 03/21/2023 16:24 INDICATION: Intertrochanteric nailing of the left hip TECHNIQUE: 4 fluoroscopic images of the left hip and proximal femur were obtained during procedure performed by Dr. Sanz. Radiologist was not present for the imaging or procedure. The amount of fluoroscopy time used during this procedure was 0.9 minutes.? COMPARISON: CT dated 03/17/2023 FINDINGS: Interval open reduction internal fixation of a previously noted intratrochanteric fracture of the proximal left femur. The fracture is fixed with an antegrade intramedullary lester with femoral neck dynamic compression screw and distal interlocking screw. Alignment appears near-anatomic. No new fractures identified. IMPRESSION: 1. Near-anatomic alignment post open reduction and internal fixation of comminuted intratrochanteric fracture of the proximal left femur.
--- NOTE | 2023-03-23 23:59 | PC.NURSE ---
pt noncompliant with post-op hip precautions. Pt frequently positions body in ways that put affected leg at risk for healing complications. Pt frequently educated on importance of proper body position and following post op precautions to ensure healing w/o complications.
--- NOTE | 2023-03-24 02:40 | PCRCNOTE ---
Pt refused neb treatment at this time
[2023-03-24 03:38] VITALS: BP 147/82; PULSE 104; RESP 18; TEMP 36; O2SAT 97
[2023-03-24] MEDS: metroNIDAZOLE 500 MG/ISO 100ML 500 MG/100 ML BAG 100 MG IVPB (05:45)
[2023-03-24] MEDS: LEVALBUTEROL NEB 1.25 MG/3 ML INHALATION ×2 (07:42→13:43)
[2023-03-24] MEDS: IPRATROPIUM BR 0.02% INH SOLN 0.5 MG/2.5 ML VIAL INHALATION ×2 (07:43→13:43)
[2023-03-24 07:46] VITALS: PULSE 106; RESP 20; O2SAT 97
[2023-03-24 08:00] VITALS: PULSE 104; RESP 20
--- NOTE | 2023-03-24 08:07 | PCOTNOTE ---
The patient treatment was not able to be completed on 03/24 at 8:02 due to patient reported being in to much pain. Nursing was notifited and will check back later after med pass. Will plan to continue treatment per plan of care.
[2023-03-24] MEDS: HYDROcodone/acetaminophen (*CRX) 5-325 MG TABLET 1 TAB PO (09:25)
[2023-03-24] MEDS: lisinopriL 10 MG TABLET PO (09:26)
[2023-03-24] MEDS: SENNA/DOCUSATE SODIUM TABLET 2 TAB PO (09:27)
[2023-03-24] MEDS: polyethylene glycoL 3350 17 GM POWD.PACK PO (09:27)
[2023-03-24] MEDS: FAMOTIDINE 20 MG TABLET PO (09:27)
[2023-03-24] MEDS: APIXABAN 5 MG TABLET PO (09:27)
--- NOTE | 2023-03-24 11:13 | PM.DS ---
DS: Admitting Diagnosis Discharge Date March 24, 2023 Admitting Diagnosis PE, hip fracture. DS: Discharge Diagnosis Discharge Diagnosis (1) Bacteremia: Code(s): R78.81 - Bacteremia Status: Acute (2) Chronic obstructive pulmonary disease: Code(s): J44.9 - Chronic obstructive pulmonary disease, unspecified Status: Acute (3) Pulmonary embolism on right: Code(s): I26.99 - Other pulmonary embolism without acute cor pulmonale Status: Acute (4) Essential hypertension: Code(s): I10 - Essential (primary) hypertension Status: Acute (5) Closed intertrochanteric fracture of left hip: Qualifiers: Encounter type: initial encounter Fracture alignment: displaced Qualified Code(s): S72.142A - Displaced intertrochanteric fracture of left femur, initial encounter for closed fracture Code(s): S72.142A - Displaced intertrochanteric fracture of left femur, initial encounter for closed fracture Status: Acute Plan (1) Bacteremia: ?Code(s): R78.81 - Bacteremia ?Status:?Acute Antibiotics stopped. (2) Pulmonary embolism on right: ?Code(s): I26.99 - Other pulmonary embolism without acute cor pulmonale ?Status:?Acute ?Assessment and Plan: Received heparin drip Venous duplex of the lower extremities came back negative for DVT.? On Lovenox 1 milligram/kilos q.12 hour Transition to oral anticoagulant prior to discharge (3) Closed intertrochanteric fracture of left hip: ?Qualifiers: ?Encounter type:?initial encounter??Fracture alignment:?displaced? Qualified Code(s):?S72.142A - Displaced intertrochanteric fracture of left femur, initial encounter for closed fracture ?Code(s): S72.142A - Displaced intertrochanteric fracture of left femur, initial encounter for closed fracture ?Status:?Acute ?Assessment and Plan: Orthopedic surgery on board and planning for surgical repair of left displaced intertrochanteric fracture once patient is medically optimized Now patient is a afebrile, hemodynamically stable, blood culture has no growth so far Orthopedic surgeon plans surgical treatment today (4) Chronic obstructive pulmonary disease: ?Code(s): J44.9 - Chronic obstructive pulmonary disease, unspecified ?Status:?Acute ?Assessment and Plan: Profound anemia Hemoglobin 6.9 Transfuse 1 pack a RBC Patient is on heparin drip, order CT abdomen pelvis without contrast, need to rule out intra-abdominal bleeding. Ct shows no intra-abdominal bleeding ferritn 1070, will not give iron now Will transfuse 2 pack RBC 4 for possible surgical procedure tomorrow Multifocal pneumonia CT scan reveals pneumonia involving right middle lobe right lower lobe and left lower lobe risk of S patient Continue cefazolin 2 g IV q.8 hours, 03/15 and Flagyl 500 q.8 hours IV 03/18 Aspiration precaution Patient has no shortness of breath, or O2 desaturation DS: Summary Hospital Course Hospital Course: Patient is a 67-year-old gentleman who came in with pulmonary embolism. His respiratory status has been perfectly fine. He had sustained a fall which caused a hip fracture. He underwent arthroplasty by Orthopedic surgery. He is tolerating okay. He is getting around his room with assistance. He is going to be discharged to [facility]. He will be discharged on anticoagulation. Also to note patient did have a possible aspiration pneumonia. He is eating fine just now. He was treated with antibiotics in the hospital. He does not need any on going antibiotics. Time Spent with Patient Time attestation: Total time spent providing and/or coordinating discharge services: Exam Narrative: General: Disheveled, mildly ill gentleman sitting up in bed. He appears older than his stated age. HEENT: Normocephalic, atraumatic. PERRL, EOMI. Sclera anicteric. Tacky mucous membranes. Edentulous. Neck: Supple. No JVD. Respiratory: Resp
[2023-03-24 12:45] LABS: EDCOVIDSCREEN Negative (Negative)
[2023-03-24 13:30] VITALS: BP 125/65; PULSE 106; RESP 16; TEMP 36.8; O2SAT 100
[2023-03-24 13:45] VITALS: PULSE 106; RESP 20
[2023-03-24 13:53] VITALS: PULSE 104; RESP 20
== END 2023-03-24 15:41 | DRG 480 ==
LOC: ANHED 19:16 → ANHIMU 22:40 → ANH2MED 03-20 13:14 → ANHIMU 03-27 09:17
PROVIDERS: Chiropractor; Emergency Medicine; Hospitalist; Internal Medicine; Orthopaedic Surgery; Physician Assistant; Admitting Provider Internal Medicine; Emergency Provider Physician Assistant; Visit Provider Hospitalist
PROC: 0QS734Z Reposition Left Upper Femur with Internal Fixation Device, Percutaneous Approach (ICD-10-PCS; CPT 27245; principal; 2023-03-21 15:00)
DX: S72.142A Displaced intertrochanteric fracture of left femur, initial encounter for closed fracture (principal); I26.99 Other pulmonary embolism without acute cor pulmonale; J69.0 Pneumonitis due to inhalation of food and vomit; R78.81 Bacteremia; B95.61 Methicillin susceptible Staphylococcus aureus infection as the cause of diseases classified elsewhere; J43.9 Emphysema, unspecified; W19.XXXA Unspecified fall, initial encounter; Z20.822 Contact with and (suspected) exposure to COVID-19; F17.210 Nicotine dependence, cigarettes, uncomplicated; I10 Essential (primary) hypertension; E86.0 Dehydration; D64.9 Anemia, unspecified
CPT/HCPCS: 36415; 36430; 70450; 71045; 71275; 73502; 73560; 74176; 80048; 80053; 80202; 80307; 81001; 82140; 82247; 82728; 83540; 83550; 83690; 83735; 83880; 84132; 84484; 85014; 85018; 85025; 85027; 85380; 85610; 85730; 86850; 86900; 86901; 86923; 87040; 87077; 87186; 87426; 93005; 93970; 94640; 96361; 96374; 96375; 97110; 97161; 97165; 97530; 97535; 99199; 99285; A9270; C1713; C8929; C9803; J0690; J1170; J1644; J1650; J1836; J2250; J2270; J3010; J3370; J3475; J3480; J7030; J7050; J7120; P9016; Q9957; Q9967